=== PATIENT | male | born 1940 | race Caucasian/White ===

== ENCOUNTER → 2025-04-17 | Outpatient (CLI) | payer MEDICARE, OTHER, SELFPAY ==
[2025-04-17 12:49] LABS: Hematocrit 37.8 % (40-54); Hemoglobin 12.8 g/dL (13.0-16.5); Immature Granulocytes Count 0.020 X10^3/uL (0.0-0.0); Mean Corp Hgb Conc 33.9 g/dL (32-36); Mean Corpuscular Volume 100.0 fL (80-94); Mean Platelet Vol. 9.8 fl (6.2-12.0); NRBC Flagged by Analyzer 0 % (0-5); Platelet Count 199 K/mm3 (150-450); RBC Distribution Width CV 12.3 % (11.6-14.6); RBC Distribution Width SD 45.7 fl (35.1-43.9); Red Blood Count 3.78 M/mm3 (4.6-6.2); White Blood Count 4.3 K/mm3 (4.4-11.0)
[2025-04-17 14:14] LABS: AST(SGOT) 31 U/L (<=37); Alanine Aminotransfer ALT/SGPT 15 U/L (<=46); Albumin, Serum 4.0 g/dL (3.4-4.8); Alkaline Phosphatase 35 U/L (40-129); Anion Gap 14 (5-15); BUN 15 mg/dL (4-19); BUN/Creat Ratio 16.3 RATIO (10-20); Calcium,Total 9.3 mg/dL (7.6-11.0); Carbon Dioxide 18.6 mmol/L (21.0-32.0); Chloride 104 mmol/L (98-108); Globulin 2.8 g/dL (2.2-4.2); Glucose 82 mg/dL (70-99); Hepatitis B Surface Antigen Nonreactive (Nonreactive); Hepatitis C Antibody Nonreactive (Nonreactive); Potassium 5.0 mmol/L (3.3-5.1)
[2025-04-17 14:20] LABS: CRP 5.51 mg/L (0.0-3.0); Uric Acid 7.7 mg/dL (3.5-7.2)
[2025-04-18 10:08] LABS: ANTINUCLEAR ANTIBODIES DIRECT Negative (Negative)
[2025-04-19 17:07] LABS: QNTFERON TB Mitogen Value > 10.00 IU/mL (.); QNTFERON TB Nil Value 0.20 IU/mL (.); QNTFERON TB1+ Ag Value 0.28 IU/mL (.); QNTFERON TB2+ Ag Value 0.25 IU/mL (.); QNTIFERON TB Positive Criteria Negative (Negative)
== END | disposition home or self-care (01) ==
LOC: MTLAB 10:21
PROVIDERS: PCP Family Medicine; Referring Provider Internal Medicine Rheumatology; Visit Provider Internal Medicine Rheumatology
DX: L40.59 Other psoriatic arthropathy (principal); M72.0 Palmar fascial fibromatosis [Dupuytren]; L40.8 Other psoriasis; M47.897 Other spondylosis, lumbosacral region; M1A.9XX1 Chronic gout, unspecified, with tophus (tophi)
CPT/HCPCS: 36415; 80053; 84550; 85025; 85652; 86038; 86140; 86200; 86431; 86480; 86706; 86803; 87340

== ENCOUNTER → 2025-05-03 | Outpatient (CLI) | payer MEDICARE, OTHER, SELFPAY ==
--- NOTE | 2025-05-03 10:23 | RAD_ITS ---
EXAM: XR Pelvis, 1 or 2 Views CLINICAL INDICATION: PSORIATIC ARTHROPATHY TECHNIQUE: Frontal view of the pelvis. COMPARISON: No relevant prior studies available. 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 No acute fracture. No dislocation. SOFT TISSUES: Unremarkable. RAD/Pelvis 1 or 2 Views IMPRESSION: Degenerative changes as above. Reading [facility]
--- NOTE | 2025-05-03 10:23 | RAD_ITS ---
EXAM: XR Pelvis, 1 or 2 Views CLINICAL INDICATION: PSORIATIC ARTHROPATHY TECHNIQUE: Frontal view of the pelvis. COMPARISON: No relevant prior studies available. 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 No acute fracture. No dislocation. SOFT TISSUES: Unremarkable. RAD/Pelvis 1 or 2 Views IMPRESSION: Degenerative changes as above. Reading [facility]
--- OUTSIDE RECORDS SUMMARY | 2025-05-03 19:03 | XMS RPT_ITS | CCD ---
Author Organization [facility] Inform ion Partnership [facility] Care Team Providers Care Beauty Consultant Name Role Phone Unavailable Primary Care Provider Unavailabl e ANGELO DO, MARIE Attending Unavailabl e ANGELO DO, CHRISTOPHER Primary Care Unavailabl e JARED TALLEY, VICKY Attending Unavailable ANGELO DO, [place] Primary Care Unavailabl e TONIOTarsha SOLIMAN, CHELO Attending Unavaila ble ANGELO DO, [facility] Primary Care Unavailabl e BRIONNA MORRISSEY PA-C Attending Unavail able ANGELO DO, [place] Primary Care Unavailabl e JARED TALLEY, VICKY Attending Unavailable ANGELO DO, [place] Primary Care Unavailabl e TONIO SOLIMAN, CHELO Attending Unavaila ble ANGELO DO, CHRISTOPHER Primary Care Unavailabl e ANGELO DO, CHRISTOPHER Attending Unavailabl e ANGELO DO, CHRISTOPHER Primary Care Unavailabl e ANGELO DO, CHRISTOPHER Attending Unavailabl e ANGELO DO, CHRISTOPHER Primary Care Unavailabl e ANGELO DO, CHRISTOPHER Attending Unavailabl e ANGELO DO, CHRISTOPHER Primary Care Unavailabl e ANGELO DO, CHRISTOPHER Primary Care Unavailabl e CHADWICK MARMOLEJO MD Attending Unavailable ANGELO DO, CHRISTOPHER Primary Care Unavailabl e REILLY LEHMAN Attending Unavailable ANGELO DO, CHRISTOPHER Primary Care Unavailabl e JONNY MATHUR DO Attending Unavailable ANGELO DO, CHRISTOPHER Attending Unavailabl e ANGELO DO, CHRISTOPHER Primary Care Unavailabl e ANGELO DO, CHRISTOPHER Attending Unavailabl e [facility], [facility] Care Unavailabl e MAGALY SOLIMAN, VIC E Primary Care Yayo SALAZAR MD, DR ANDERSON Attending Unavailable Angelo HEATH, Dr. Ayala Primary Care Provider Negro MAJANO, Dr. Landrum Attending Provider Dr. Lucita Tom MD Referring Provider Lucita Tom Attending Unavailable Lucita Tom Referring Unavailable Jamie Stephens Primary Care Unavailable Problems Active Problems Problem Classification Problem Date Documented Date Episodic/Chronic Genitourinary symptoms and ill-defined conditions (2 sources) Unspecified symptoms and signs involving the genitourinary system; Translations: [Unspecified symptoms and signs involving the genitourinary system] Onset: 09-21-2024 Episodic Other inflammatory condition of skin (1 source) Other psoriatic arthropathy; Translations: [Other psoriatic arthropathy] Onset: 04-19-2025 Chronic Past or Other Problems Problem Classification Problem Date Documented Da te Episodic/Chronic Other upper respiratory infections (2 sources) Acute pharyngitis, unspecified; Translations: [Acute pharyngitis, unspecified] Onset: 06-11-2023 Episodic Results Test Name Value Interpretation Reference Range Facility CCP IgG Antibodieson 025 CCP IgG Ab. 6 units Normal 0-19 [facility] Comment on above: Result Comment: Nega tive <20 Weak positive 20 - 39 Moderate positive 40 - 59 Strong positive >59 Performed at: [facility] [id number] Container Packer Operator: Heath Bell PhD, Phone: [phone] Performed By: #### L 501.1400, L101.9900, L3890.6301, L501.6710, L4600.0100, L3890.6102, L505.7010, L3400.8000, L3100.5475, L3890.6202, L500.4050, L100.0100 #### [facility] [address] [place], [address] Quantiferon TB-Gold+on 04-19 QFT MITOGEN URSZULA > 10.00 Normal . [facility] Comment on above: Performed By: #### L 501.1400, L101.9900, L3890.6301, L501.6710, L4600.0100, L3890.6102, L505.7010, L3400.8000, L3100.5475, L3890.6202, L500.4050, L100.0100 #### [facility] [address] [place], [address] QFT NIL VALUE 0.20 IU/mL Normal . [facility] Comment on above: Performed By: #### L 501.1400, L101.9900, L3890.6301, L501.6710, L4600.0100, L3890.6102, L505.7010, L3400.8000, L3100.5475, L3890.6202, L500.4050, L100.0100 #### [facility] [address] [place], [address] QFT TB GOLD+ Comment Normal . [facility] Comment on above: Result Comment: Juarez tiFERON-TB Gold Plus is a qualitative indirect test for M tuberculosis infection (including disease) and is intended for use in conjunction with risk assessment, radiography, and other medical and diagnostic evaluations. The QuantiFERON-TB Gold Plus result is determined by subtracting the Nil value from either TB antigen (Ag) value. The Mitogen tube serves as a control for the test. Performed By: #### L 501.1400, L101.9900, L3890.6301, L501.6710, L4600.0100, L3890.6102, L505.7010, L3400.8000, L3100.5475, L3890.6202, L500.4050, L100.0100 #### [facility] [address] [place], [address] QFT TB POS CRIT Negative Normal Negative [facility] Comment on above: Result Comment: No r esponse to M tuberculosis antigens detected. Infection with M tuberculosis is unlikely, but high risk individuals should be considered for additional testing (ATS/IDSA/CDC Clinical Practice Guidelines, 2017). The reference range is an Antigen minus Nil result of <0.35 IU/mL. The specimen received for QuantiFERON testing was incubated by the ordering institution. Specific procedures outlined in our Directory of Services and in the package insert for the QuantiFERON Gold (In Tube) test must be followed to enable for proper stimulation of cells for the production of interferon gamma. Chemiluminescence immunoassay methodology Performed at: [facility] [employer] [id number] Container Packer Operator: Heath Bell PhD, Phone: [phone] Performed By: #### L 501.1400, L101.9900, L3890.6301, L501.6710, L4600.0100, L3890.6102, L505.7010, L3400.8000, L3100.5475, L3890.6202, L500.4050, L100.0100 #### [facility] [address] [place], [address] QFT TB1+ AG URSZULA 0.28 IU/mL Normal . [facility] Comment on above: Performed By: #### L 501.1400, L101.9900, L3890.6301, L501.6710, L4600.0100, L3890.6102, L505.7010, L3400.8000, L3100.5475, L3890.6202, L500.4050, L100.0100 #### [facility] [address] [place], [address] QFT TB2+ AG URSZULA 0.25 IU/mL Normal . [facility] Comment on above: Performed By: #### L 501.1400, L101.9900, L3890.6301, L501.6710, L4600.0100, L3890.6102, L505.7010, L3400.8000, L3100.5475, L3890.6202, L500.4050, L100.0100 #### [facility] [address] [place], [address] ANTINUCLEAR ANTIBODIES DIREC Ton 04-18-2025 ZAY,DIRECT Negative Normal Negative [facility] Comment on above: Result Comment: Perf ormed at: [email or web address] [id number] Container P[employer] Operator: Heath Bell PhD, Phone: [phone] Performed By: #### L 501.1400, L101.9900, L3890.6301, L501.6710, L4600.0100, L3890.6102, L505.7010, L3400.8000, L3100.5475, L3890.6202, L500.4050, L100.0100 #### [facility] [address] [place], [place], [id number] Absolute lymphocyte countOrd ered By: [facility] Negro on 04-17-2025 Lymphocytes Auto (Unsp spec) [#/Vol] 1.03 10*3/uL 0.83-4.51 [facility] Absolute neutrophil countOrd ered By: [facility] 04-17-2025 Neutrophils (Bld) [#/Vol] 2.2 10*3/uL 2.0-7.7 [facility] Anion gap in Serum or Plasma Ordered By: Lucitaraul Tom on 04-17-2025 Anion gap [Moles/Vol] 14 mmol/L 5-15 [facility] Automated lymphocyte count a s percentage of total leukocytesOrdered By: [facility] Negro on 04-17-2025 Lymphocytes/100 WBC Auto (Unsp spec) 24.2 % 19-41 [facility] BUN/creatinine ratioOrdered By: [facility] on 04-17-2025 Urea nitrogen/Creatinine [Mass ratio] 16.3 mg/mg 10-20 [facility] Basophil percentageOrdered B y: Lucita Tom on 04-17-2025 Basophils/100 WBC (Bld) 0.7 % 0-1 [facility] Bilirubin, totalOrdered By: [facility] on 04-17-2025 Bilirubin [Mass/Vol] 0.53 mg/dL 0.00-1.30 [facility] CBC W/Diff, Automatedon Absolute Lymph 1.03 X10 3/uL Normal 0.83-4.51 [facility] Comment on above: Performed By: #### L 501.1400, L101.9900, L3890.6301, L501.6710, L4600.0100, L3890.6102, L505.7010, L3400.8000, L3100.5475, L3890.6202, L500.4050, L100.0100 #### [facility] [address] [place], [address] Absolute Neut 2.2 X10 3/uL Normal 2.0-7.7 [facility] Comment on above: Performed By: #### L 501.1400, L101.9900, L3890.6301, L501.6710, L4600.0100, L3890.6102, L505.7010, L3400.8000, L3100.5475, L3890.6202, L500.4050, L100.0100 #### [facility] [address] [place], [place], [phone] ([address]) Basophils/100 WBC (Bld) 0.7 % Normal 0-1 [facility] Comment on above: Performed By: #### L 501.1400, L101.9900, L3890.6301, L501.6710, L4600.0100, L3890.6102, L505.7010, L3400.8000, L3100.5475, L3890.6202, L500.4050, L100.0100 #### [facility] [address] [place], [place], [phone] ([address] Eosinophils/100 WBC (Bld) 8.7 % High 0-5 [facility] Comment on above: Performed By: #### L 501.1400, L101.9900, L3890.6301, L501.6710, L4600.0100, L3890.6102, L505.7010, L3400.8000, L3100.5475, L3890.6202, L500.4050, L100.0100 #### [facility] [address] [place], [place], [phone] (709) Erythrocyte distribution width (RBC) [Ratio] 12.3 % Normal 11.6-14.6 [facility] Comment on above: Performed By: #### L 501.1400, L101.9900, L3890.6301, L501.6710, L4600.0100, L3890.6102, L505.7010, L3400.8000, L3100.5475, L3890.6202, L500.4050, L100.0100 #### [facility] [address] [place], [address] Hematocrit (Bld) [Volume fraction] 37.8 % Low 40-54 [facility] Comment on above: Performed By: #### L 501.1400, L101.9900, L3890.6301, L501.6710, L4600.0100, L3890.6102, L505.7010, L3400.8000, L3100.5475, L3890.6202, L500.4050, L100.0100 #### [facility] [address] [place], [place], [phone] (238) Hemoglobin (Bld) [Mass/Vol] 12.8 g/dL Low 13.0-16.5 [facility] Comment on above: Performed By: #### L 501.1400, L101.9900, L3890.6301, L501.6710, L4600.0100, L3890.6102, L505.7010, L3400.8000, L3100.5475, L3890.6202, L500.4050, L100.0100 #### [facility] [address] [place], [address] IG% 0.500 Normal 0.0-0.9 [facility] Comment on above: Result Comment: IG% - Immature Granulocytes (promyelocytes, myelocytes and metamyelocytes) > 1% indicates that a LEFT SHIFT is Present. Performed By: #### L 501.1400, L101.9900, L3890.6301, L501.6710, L4600.0100, L3890.6102, L505.7010, L3400.8000, L3100.5475, L3890.6202, L500.4050, L100.0100 #### [facility] [address] [place], [address] Lymphocytes/100 WBC (Bld) 24.2 % Normal 19-41 [facility] Comment on above: Performed By: #### L 501.1400, L101.9900, L3890.6301, L501.6710, L4600.0100, L3890.6102, L505.7010, L3400.8000, L3100.5475, L3890.6202, L500.4050, L100.0100 #### [facility] [address] [place], [address] MCH (RBC) [Entitic mass] 33.9 pg High 27.0-32.0 [facility] Comment on above: Performed By: #### L 501.1400, L101.9900, L3890.6301, L501.6710, L4600.0100, L3890.6102, L505.7010, L3400.8000, L3100.5475, L3890.6202, L500.4050, L100.0100 #### [facility] [address] [place], [address] MCHC (RBC) [Mass/Vol] 33.9 g/dL Normal 32-36 [facility] Comment on above: Performed By: #### L 501.1400, L101.9900, L3890.6301, L501.6710, L4600.0100, L3890.6102, L505.7010, L3400.8000, L3100.5475, L3890.6202, L500.4050, L100.0100 #### [facility] [address] [place], [address] MCV (RBC) [Entitic vol] 100.0 fL High 80-94 [facility] Comment on above: Performed By: #### L 501.1400, L101.9900, L3890.6301, L501.6710, L4600.0100, L3890.6102, L505.7010, L3400.8000, L3100.5475, L3890.6202, L500.4050, L100.0100 #### [facility] [address] [place], [address] Monocytes/100 WBC (Bld) 15.1 % High 0-10 [facility] Comment on above: Performed By: #### L 501.1400, L101.9900, L3890.6301, L501.6710, L4600.0100, L3890.6102, L505.7010, L3400.8000, L3100.5475, L3890.6202, L500.4050, L100.0100 #### [facility] [address] [place], [address] Neutrophils/100 WBC (Bld) 50.8 % Normal 47-70 [facility] Comment on above: Performed By: #### L 501.1400, L101.9900, L3890.6301, L501.6710, L4600.0100, L3890.6102, L505.7010, L3400.8000, L3100.5475, L3890.6202, L500.4050, L100.0100 #### [facility] [address] [place], [place], [phone] ([address] Nucleated RBC (Bld) [#/Vol] 0 10*3/uL Normal 0-5 [facility] Comment on above: Performed By: #### L 501.1400, L101.9900, L3890.6301, L501.6710, L4600.0100, L3890.6102, L505.7010, L3400.8000, L3100.5475, L3890.6202, L500.4050, L100.0100 #### [facility] [address] [place], [address] Platelet mean volume (Bld) [Entitic vol] 9.8 fL Normal 6.2-12.0 [facility] Comment on above: Performed By: #### L 501.1400, L101.9900, L3890.6301, L501.6710, L4600.0100, L3890.6102, L505.7010, L3400.8000, L3100.5475, L3890.6202, L500.4050, L100.0100 #### [facility] [address] [place], [address] Platelets (Bld) [#/Vol] 199 10*3/uL Normal 150-450 [facility] Comment on above: Performed By: #### L 501.1400, L101.9900, L3890.6301, L501.6710, L4600.0100, L3890.6102, L505.7010, L3400.8000, L3100.5475, L3890.6202, L500.4050, L100.0100 #### [facility] [address] [place], [address] RBC (Bld) [#/Vol] 3.78 10*6/uL Low 4.6-6.2 [facility] Comment on above: Performed By: #### L 501.1400, L101.9900, L3890.6301, L501.6710, L4600.0100, L3890.6102, L505.7010, L3400.8000, L3100.5475, L3890.6202, L500.4050, L100.0100 #### [facility] [address] [place], [address] RDW SD 45.7 fl High 35.1-43.9 [facility] Comment on above: Performed By: #### L 501.1400, L101.9900, L3890.6301, L501.6710, L4600.0100, L3890.6102, L505.7010, L3400.8000, L3100.5475, L3890.6202, L500.4050, L100.0100 #### [facility] [address] [place], [address] WBC (Bld) [#/Vol] 4.3 10*3/uL Low 4.4-11.0 [facility] Comment on above: Performed By: #### L 501.1400, L101.9900, L3890.6301, L501.6710, L4600.0100, L3890.6102, L505.7010, L3400.8000, L3100.5475, L3890.6202, L500.4050, L100.0100 #### [facility] [address] [facility] [address] [facility] [place], [place], [phone] (197) CRPon 04-17-2025 C-REACTIVE PROT 5.51 mg/L High 0.0-3.0 [facility] Comment on above: Performed By: #### L 501.1400, L101.9900, L3890.6301, L501.6710, L4600.0100, L3890.6102, L505.7010, L3400.8000, L3100.5475, L3890.6202, L500.4050, L100.0100 #### [facility] [address] [facility] [place], [place], [phone] Carbon dioxide, total [Moles /volume] in Central venous bloodOrdered By: Lucita Tom on 04-17-2025 CO2 [Moles/Vol] 18.6 mmol/L Low 21.0-32.0 [facility] Chloride assayOrdered By: John Tom on 04-17-2025 Chloride [Moles/Vol] 104 mmol/L 98-108 [facility] Comprehensive Metabolic Prof ilon 04-17-2025 Albumin [Mass/Vol] 4.0 g/dL Normal 3.4-4.8 [facility] Comment on above: Performed By: #### L 501.1400, L101.9900, L3890.6301, L501.6710, L4600.0100, L3890.6102, L505.7010, L3400.8000, L3100.5475, L3890.6202, L500.4050, L100.0100 #### [facility] [address] [place], [place], [phone] Albumin/Globulin [Mass ratio] 1.4 {ratio} Normal 0.9-2.4 [facility] Comment on above: Performed By: #### L 501.1400, L101.9900, L3890.6301, L501.6710, L4600.0100, L3890.6102, L505.7010, L3400.8000, L3100.5475, L3890.6202, L500.4050, L100.0100 #### [facility] [address] [place], [place], [phone] ALK PHOS 35 U/L Low 40-129 [facility] Comment on above: Performed By: #### L 501.1400, L101.9900, L3890.6301, L501.6710, L4600.0100, L3890.6102, L505.7010, L3400.8000, L3100.5475, L3890.6202, L500.4050, L100.0100 #### [facility] [address] [place], [place], [phone] ALT [Catalytic activity/Vol] 15 U/L Normal <=46 [facility] Comment on above: Performed By: #### L 501.1400, L101.9900, L3890.6301, L501.6710, L4600.0100, L3890.6102, L505.7010, L3400.8000, L3100.5475, L3890.6202, L500.4050, L100.0100 #### [facility] [address] [place], [address] (197 AST [Catalytic activity/Vol] 31 U/L Normal <=37 [facility] Comment on above: Performed By: #### L 501.1400, L101.9900, L3890.6301, L501.6710, L4600.0100, L3890.6102, L505.7010, L3400.8000, L3100.5475, L3890.6202, L500.4050, L100.0100 #### [facility] [address] [place], [address] Bilirubin [Mass/Vol] 0.53 mg/dL Normal 0.00-1.30 [facility] Comment on above: Performed By: #### L 501.1400, L101.9900, L3890.6301, L501.6710, L4600.0100, L3890.6102, L505.7010, L3400.8000, L3100.5475, L3890.6202, L500.4050, L100.0100 #### [facility] [address] [place], [address] BUN/CRE 16.3 RATIO Normal 10-20 [facility] Comment on above: Performed By: #### L 501.1400, L101.9900, L3890.6301, L501.6710, L4600.0100, L3890.6102, L505.7010, L3400.8000, L3100.5475, L3890.6202, L500.4050, L100.0100 #### [facility] [address] [place], [address] Calcium [Mass/Vol] 9.3 mg/dL Normal 7.6-11.0 [facility] Comment on above: Performed By: #### L 501.1400, L101.9900, L3890.6301, L501.6710, L4600.0100, L3890.6102, L505.7010, L3400.8000, L3100.5475, L3890.6202, L500.4050, L100.0100 #### [facility] [address] [place], [address] Chloride [Moles/Vol] 104 mmol/L Normal 98-108 [facility] Comment on above: Performed By: #### L 501.1400, L101.9900, L3890.6301, L501.6710, L4600.0100, L3890.6102, L505.7010, L3400.8000, L3100.5475, L3890.6202, L500.4050, L100.0100 #### [facility] [address] [place], [address] CO2 [Moles/Vol] 18.6 mmol/L Low 21.0-32.0 [facility] Comment on above: Performed By: #### L 501.1400, L101.9900, L3890.6301, L501.6710, L4600.0100, L3890.6102, L505.7010, L3400.8000, L3100.5475, L3890.6202, L500.4050, L100.0100 #### [facility] [address] [place], [address] Creatinine [Mass/Vol] 0.91 mg/dL Normal 0.70-1.20 [facility] Comment on above: Performed By: #### L 501.1400, L101.9900, L3890.6301, L501.6710, L4600.0100, L3890.6102, L505.7010, L3400.8000, L3100.5475, L3890.6202, L500.4050, L100.0100 #### [facility] [address] [place], [address] GAP 14 Normal 5-15 [facility] Comment on above: Performed By: #### L 501.1400, L101.9900, L3890.6301, L501.6710, L4600.0100, L3890.6102, L505.7010, L3400.8000, L3100.5475, L3890.6202, L500.4050, L100.0100 #### [facility] [address] [place], [address] GFR/1.73 sq M.predicted among non-blacks MDRD (S/P/Bld) [Vol rate/Area] 85 mL/min/{1.73_m2} Normal >60 [facility] Comment on above: Result Comment: mL/m in/1.73m2 CKD-EPI Creatinine Equation (2020) Performed By: #### L 501.1400, L101.9900, L3890.6301, L501.6710, L4600.0100, L3890.6102, L505.7010, L3400.8000, L3100.5475, L3890.6202, L500.4050, L100.0100 #### [facility] [address] [place], [address] Globulin (S) [Mass/Vol] 2.8 g/dL Normal 2.2-4.2 [facility] Comment on above: Performed By: #### L 501.1400, L101.9900, L3890.6301, L501.6710, L4600.0100, L3890.6102, L505.7010, L3400.8000, L3100.5475, L3890.6202, L500.4050, L100.0100 #### [facility] [address] [place], [address] Glucose [Mass/Vol] 82 mg/dL Normal 70-99 [facility] Comment on above: Performed By: #### L 501.1400, L101.9900, L3890.6301, L501.6710, L4600.0100, L3890.6102, L505.7010, L3400.8000, L3100.5475, L3890.6202, L500.4050, L100.0100 #### [facility] [address] [place], [address] Potassium [Moles/Vol] 5.0 mmol/L Normal 3.3-5.1 [facility] Comment on above: Performed By: #### L 501.1400, L101.9900, L3890.6301, L501.6710, L4600.0100, L3890.6102, L505.7010, L3400.8000, L3100.5475, L3890.6202, L500.4050, L100.0100 #### [facility] [address] [place], [address] Sodium [Moles/Vol] 136 mmol/L Normal 133-145 [facility] Comment on above: Performed By: #### L 501.1400, L101.9900, L3890.6301, L501.6710, L4600.0100, L3890.6102, L505.7010, L3400.8000, L3100.5475, L3890.6202, L500.4050, L100.0100 #### [facility] [address] [place], [address] T PROT 6.8 g/dL Normal 5.9-8.4 [facility] Comment on above: Performed By: #### L 501.1400, L101.9900, L3890.6301, L501.6710, L4600.0100, L3890.6102, L505.7010, L3400.8000, L3100.5475, L3890.6202, L500.4050, L100.0100 #### [facility] [address] [place], [address] Urea nitrogen [Mass/Vol] 15 mg/dL Normal 4-19 [facility] Comment on above: Performed By: #### L 501.1400, L101.9900, L3890.6301, L501.6710, L4600.0100, L3890.6102, L505.7010, L3400.8000, L3100.5475, L3890.6202, L500.4050, L100.0100 #### [facility] [address] [place], [place], [id number] Eosinophil percentageOrdered By: Lucita Tom on 04-17-2025 Eosinophils/100 WBC (Bld) 8.7 % High 0-5 [facility] Erythrocyte Sed Rateon 04-17 SED RATE 10 mm/hr Normal 0-20 [facility] Comment on above: Performed By: #### L 501.1400, L101.9900, L3890.6301, L501.6710, L4600.0100, L3890.6102, L505.7010, L3400.8000, L3100.5475, L3890.6202, L500.4050, L100.0100 #### [facility] [address] [place], [place], [id number] Erythrocyte distribution wid th ratioOrdered By: Lucita Tom on 04-17-2025 Erythrocyte distribution width (RBC) [Ratio] 12.3 % 11.6-14.6 [facility] Erythrocyte distribution wid th standard deviationOrdered By: Lucitaraul Tom on 04-17-2025 Erythrocyte distribution width (RBC) [Ratio] 45.7 fl High 35.1-43.9 [facility] Erythrocyte sedimentation ra teOrdered By: Lucita Tom on 04-17-2025 ESR (Bld) [Velocity] 10 mm/h 0-20 [facility] Glomerular filtration rate ( GFR) estimation/1.73 sq m using serum, plasma, or whole bOrdered By: Lucita Tom on 04-17-2025 GFR/1.73 sq M.predicted among non-blacks MDRD (S/P/Bld) [Vol rate/Area] 85 mL/min/{1.73_m2} >60 [facility] Comment on above: mL/min/1.73m2 CKD-EP I Creatinine Equation (2021) Hematocrit Auto (Bld) [Volum e fraction]Ordered By: Lucita Tom on 04-17-2025 Hematocrit (Bld) [Volume fraction] 37.8 % Low 40-54 [facility] Hemoglobin measurementOrdere d By: Lucita Tom on 04-17-2025 Hemoglobin (Bld) [Mass/Vol] 12.8 g/dL Low 13.0-16.5 [facility] Hepatitis B Surface Antibody on 04-17-2025 HEP B Surf Ab Non-Reactive Normal [facility] Comment on above: Result Comment: <8.5 mIU/mL: Non-Reactive 8.5<= x <11.5 mIU/mL: Indeterminate >=11.5 mIU/mL: Reactive Non Reactive: Inconsistent with immunity less than <10 mIU/mL Reactive: Consistent with immunity greater than or equal to 10 mIU/mL Performed By: #### L 501.1400, L101.9900, L3890.6301, L501.6710, L4600.0100, L3890.6102, L505.7010, L3400.8000, L3100.5475, L3890.6202, L500.4050, L100.0100 #### [facility] [address] [place], [place], [id number] Hepatitis C Antibodyon 04-17 Hepatitis C Ab Non-Reactive Normal Nonreactive [facility] Comment on above: Result Comment: Reac tive: Presumptive evidence of antibodies to HCV. Follow CDC recommendations for supplemental testing. Non-Reactive: Antibodies to HCV were not detected; does not exclude the possibility of exposure to HCV Reactive Results are presumptive evidence of antibodies to HCV. Follow CDC recommendations for supplemental testing. Order confirmation testing: HCV Quant by PCR testing - HCVPCR #[id number] Non Reactive: < 0.8 Equivocal: >/= 0.8 to < 1.0 Reactive: >/= 1.0 The CDC requires that a reactive/equivocal HCV antibody result be sent out for confirmation. HCV Quant by PCR testing. Performed By: #### L 501.1400, L101.9900, L3890.6301, L501.6710, L4600.0100, L3890.6102, L505.7010, L3400.8000, L3100.5475, L3890.6202, L500.4050, L100.0100 #### [facility] [address] [place], [place], [id number] Immature granulocytes/100 WB C Auto (Bld)Ordered By: Lucita Tom on 04-17-2025 Immature granulocytes/100 WBC (Bld) 0.500 % 0.0-0.9 [facility] Comment on above: IG% - Immature Granu locytes (promyelocytes, myelocytes and metamyelocytes) > 1% indicates that a LEFT SHIFT is Present. L3890.6102on 04-17-2025 HEP B Surf Ag Non-Reactive Normal Nonreactive [facility] Comment on above: Result Comment: Reac tive: Presumptive evidence of HBV. Repeatedly reactive samples must be confirmed using a neutralization test ([employer] HBsAg Confirmatory Test) Non-Reactive: HBsAg not detected; does not exclude the possibility of exposure to HBV Performed By: #### L 501.1400, L101.9900, L3890.6301, L501.6710, L4600.0100, L3890.6102, L505.7010, L3400.8000, L3100.5475, L3890.6202, L500.4050, L100.0100 #### [facility] [address] [place], [address] Laboratory - Chemistry and C hemistry - challengeOrdered By: Lucita Tom on 04-17-2025 AST [Catalytic activity/Vol] 31 U/L <38 [facility] - Microbiology an d Antimicrobial susceptibilityOrdered By: Lucita Tom on 04-17-2025 HBV surface Ag Ql (S) Non-Reactive Nonreactive [facility] Comment on above: Reactive: Presumptiv e evidence of HBV. Repeatedly reactive samples must be confirmed using a neutralization test ([employer] HBsAg Confirmatory Test)Non-Reactive: HBsAg not detected; does not exclude the possibility of exposure to HBV MCV (mean corpuscular volume ) determinationOrdered By: Lucita Tom on 04-17-2025 MCV (RBC) [Entitic vol] 100.0 fL High 80-94 [facility] Mean corpuscular hemoglobin (MCH) determinationOrdered By: Lucita Tom on 04-17-2025 MCH (RBC) [Entitic mass] 33.9 pg High 27.0-32.0 [facility] Mean corpuscular hemoglobin concentration (MCHC) determinationOrdered By: Lucita Tom on 04-17-2025 MCHC (RBC) [Mass/Vol] 33.9 g/dL 32-36 [facility] Mean platelet volume determi nationOrdered By: Lucita Tom on 04-17-2025 Platelet mean volume (Bld) [Entitic vol] 9.8 fL 6.2-12.0 [facility] Monocyte percentageOrdered B y: Lucita Tom on 04-17-2025 Monocytes/100 WBC (Bld) 15.1 % High 0-10 [facility] Neutrophil percentageOrdered By: Lucita Tom on 04-17-2025 Neutrophils/100 WBC (Bld) 50.8 % 47-70 [facility] Nucleated red blood cell per centageOrdered By: Lucita Tom on 04-17-2025 Nucleated RBC/100 WBC (Bld) [Ratio] 0 % 0-5 [facility] Platelet countOrdered By: John Tom on 04-17-2025 Platelets (Bld) [#/Vol] 199 10*3/uL 150-450 [facility] Potassium measurement (mass/ volume)Ordered By: Lucita Tom on 04-17-2025 Potassium (Unsp spec) [Mass/Vol] 5.0 mmol/L 3.3-5.1 [facility] RBC Auto (Bld) [#/Vol]Ordere d By: Lucita Tom on 04-17-2025 RBC (Bld) [#/Vol] 3.78 10*6/uL Low 4.6-6.2 [facility] Rheumatoid Factoron 04-17-20 25 RHEUMATOID FAC < 10.0 Normal <15 [facility] Comment on above: Performed By: #### L 501.1400, L101.9900, L3890.6301, L501.6710, L4600.0100, L3890.6102, L505.7010, L3400.8000, L3100.5475, L3890.6202, L500.4050, L100.0100 #### [facility] [place], [address] Serum creatinine measurement (mass/volume)Ordered By: Lucita Tom on 04-17-2025 Creatinine [Mass/Vol] 0.91 mg/dL 0.70-1.20 [facility] Serum globulin measurementOr dered By: Lucita Tom on 04-17-2025 Globulin (S) [Mass/Vol] 2.8 g/dL 2.2-4.2 [facility] Serum glucose measurement (m ass/volume)Ordered By: Lucita Tom on 04-17-2025 Glucose [Mass/Vol] 82 mg/dL 70-99 [facility] Serum hepatitis B virus surf lilia antibody detectionOrdered By: Lucita Tom on 04-17-2025 HBV surface Ab Ql (S) Non-Reactive [facility] Comment on above: <8.5 mIU/mL: Non-[place] ctive8.5<= x <11.5 mIU/mL: Indeterminate>=11.5 mIU/mL: Reactive Non Reactive: Inconsistent with immunity less than <10 mIU/mL Reactive: Consistent with immunity greater than or equal to 10 mIU/mL Serum or plasma C reactive p rotein measurement (mass/volume)Ordered By: Lucita Tom on 04-17-2025 CRP [Mass/Vol] 5.51 mg/L High 0.0-3.0 [facility] Serum or plasma alanine garcia otransferase (ALT) measurementOrdered By: Lucitaraul Tom on 04-17-2025 ALT [Catalytic activity/Vol] 15 U/L <47 [facility] Serum or plasma albumin katelyn urement (mass/volume)Ordered By: Lucita Tom on 04-17-2025 Albumin [Mass/Vol] 4.0 g/dL 3.4-4.8 [facility] Serum or plasma albumin/glob ulin mass ratioOrdered By: Lucita Tom 04-17-2025 Albumin/Globulin [Mass ratio] 1.4 {ratio} 0.9-2.4 [facility] Serum or plasma alkaline mary sphatase measurementOrdered By: Lucita Tom on 04-17-2025 ALP [Catalytic activity/Vol] 35 U/L Low 40-129 [facility] Serum or plasma calcium katelyn urement (mass/volume)Ordered By: Lucita Tom on 04-17-2025 Calcium [Mass/Vol] 9.3 mg/dL 7.6-11.0 [facility] Serum or plasma urea nitroge n measurement (mass/volume)Ordered By: Lucita Tom on 04-17-2025 Urea nitrogen [Mass/Vol] 15 mg/dL 4-19 [facility] Serum or plasma uric acid me asurement (mass/volume)Ordered By: Lucita Tom on 04-17-2025 Urate [Mass/Vol] 7.7 mg/dL High 3.5-7.2 [facility] Comment on above: The drugs N-Acetylcy steine and Metamizole may falsely depress this assay. Serum rheumatoid factor dete ctionOrdered By: Lucita Tom on 04-17-2025 Rheumatoid factor Ql (S) < 10.0 IU/mL <15 [facility] Sodium levelOrdered By: Tremaine Tom on 04-17-2025 Sodium [Moles/Vol] 136 mmol/L 133-145 [facility] Total proteinOrdered By: Beba Tom on 04-17-2025 Protein [Mass/Vol] 6.8 g/dL 5.9-8.4 [facility] Uric Acidon 04-17-2025 URIC 7.7 mg/dL High 3.5-7.2 [facility] Comment on above: Result Comment: The drugs N-Acetylcysteine and Metamizole may falsely depress this assay. Performed By: #### L 501.1400, L101.9900, L3890.6301, L501.6710, L4600.0100, L3890.6102, L505.7010, L3400.8000, L3100.5475, L3890.6202, L500.4050, L100.0100 #### [facility] [address] [place], [address] White blood cell (WBC) count Ordered By: Lucita Tom on 04-17-2025 WBC (Bld) [#/Vol] 4.3 10*3/uL Low 4.4-11.0 [facility] .Auto Diffon 12-25-2024 Basophil, Absolute 0.0 10 3/mcL Normal 0.0-0.3 [facility] Comment on above: Performed By: #### M DW, CMP, MG, ANEU, GFR, MORPH, ADIFF, CBC #### [facility] [place] [address] [place], [place] [address] Basophils/100 WBC (Bld) 1.0 % Normal 0.0-2.5 [facility] Comment on above: Performed By: #### M DW, CMP, MG, ANEU, GFR, MORPH, ADIFF, CBC #### [facility] [place] [address] [place], [place] [address] Eosinophil, Absolute 0.3 10 3/mcL Normal 0.0-0.7 [facility] Comment on above: Performed By: #### M DW, CMP, MG, ANEU, GFR, MORPH, ADIFF, CBC #### [facility] [place] [address] [place], [place] [address] Eosinophils/100 WBC (Bld) 7.2 % High 0.0-6.0 [facility] Comment on above: Performed By: #### M DW, CMP, MG, ANEU, GFR, MORPH, ADIFF, CBC #### [facility] [place] [address] [place], [place] [address] Lymphocyte, Absolute 1.4 10 3/mcL Normal 0.9-4.3 [facility] Comment on above: Performed By: #### M DW, CMP, MG, ANEU, GFR, MORPH, ADIFF, CBC #### [facility] [place] [address] [place], [place] [address] Lymphocytes/100 WBC (Bld) 32.6 % Normal 20.0-40.0 [facility] Comment on above: Performed By: #### M DW, CMP, MG, ANEU, GFR, MORPH, ADIFF, CBC #### [facility] [place] [address] [place], [place] [address] Monocyte, Absolute 0.5 10 3/mcL Normal 0.1-1.4 [facility] Comment on above: Performed By: #### M DW, CMP, MG, ANEU, GFR, MORPH, ADIFF, CBC #### [facility] [place] [address] [place], [place] [address] Monocytes/100 WBC (Bld) 12.1 % Normal 2.0-13.0 [facility] Comment on above: Performed By: #### M DW, CMP, MG, ANEU, GFR, MORPH, ADIFF, CBC #### [facility] [place] [address] [place], [place] [address] Neutrophils/100 WBC (Bld) 47.1 % Low 50.0-75.0 [facility] Comment on above: Performed By: #### M DW, CMP, MG, ANEU, GFR, MORPH, ADIFF, CBC #### [facility] [address] [place], [place] [address] .GFRon 12-25-2024 Estimated Glomerular Filtration Rate 64 ml/min/1.73sqm Normal [facility] Comment on above: Result Comment: Stages of Chronic Kidney Disease (CKD) Stage Description eGFR(ml/min/1.73 sq.m.) CKD 1 Normal kidney function or >=90 normal kindney function with possible kidney damage (ex. Proteinuria) CKD 2 Kidney damage with mild loss 60-89 of kidney function CKD 3a Mild to moderate loss of kidney 45-59 function CKD 3b Moderate to severe loss of 30-44 of kindey function CKD 4 Severe loss of kidney function 15-29 CKD 5 Kidney failure <15 Note: (go live 2024) the eGFR calculation was updated to the 2020 CKD-EPI creatinine equation without a race factor to calculate the eGFR results. Performed By: #### M DW, CMP, MG, ANEU, GFR, MORPH, ADIFF, CBC #### [facility] [place] [address] [place], [place] [address] .NEUABSon 12-25-2024 Neutrophil, Absolute 2.0 10 3/mcL Low 2.3-8.1 [facility] Comment on above: Performed By: #### M DW, CMP, MG, ANEU, GFR, MORPH, ADIFF, CBC #### [facility] [place] [address] [place], [place] [address] CBCon 12-25-2024 Erythrocyte distribution width (RBC) [Ratio] 13.0 % Normal 11.5-15.5 [facility] Comment on above: Performed By: #### C MP, CBC, ANEU, ADIFF, URIC, GFR #### [facility] [place] [address] [place] [id number] Hematocrit (Bld) [Volume fraction] 38.3 % Low 40.0-52.0 [facility] Comment on above: Performed By: #### C MP, CBC, ANEU, ADIFF, URIC, GFR #### [facility] [address] [place] [id number] Hgb 12.7 G/dL Low 13.0-17.5 [facility] Comment on above: Performed By: #### C MP, CBC, ANEU, ADIFF, URIC, GFR #### [facility] [address] [place], [place] [address] MCH (RBC) [Entitic mass] 33.7 pg High 27.0-33.0 [facility] Comment on above: Performed By: #### C MP, CBC, ANEU, ADIFF, URIC, GFR #### [facility] [address] [place] [id number] MCHC 33.1 G/dL Normal 32.0-36.0 [facility] Comment on above: Performed By: #### C MP, CBC, ANEU, ADIFF, URIC, GFR #### [facility] [address] [place] [phone] MCV (RBC) [Entitic vol] 101.8 fL High 81.0-100.0 [facility] Comment on above: Performed By: #### C MP, CBC, ANEU, ADIFF, URIC, GFR #### [facility] [address] [place] [id number] Platelet 207 10 3/mcL Normal 150-450 [facility] Comment on above: Performed By: #### C MP, CBC, ANEU, ADIFF, URIC, GFR #### [facility] [place] [address] [place], [place] [address] Platelet mean volume (Bld) [Entitic vol] 7.8 fL Normal 6.4-10.5 [facility] Comment on above: Performed By: #### C MP, CBC, ANEU, ADIFF, URIC, GFR #### [facility] [place] [address] [place] [id number] RBC 3.76 10 6/mcL Low 4.50-6.00 [facility] Comment on above: Performed By: #### C MP, CBC, ANEU, ADIFF, URIC, GFR #### [facility] [place] [address] [place] [id number] WBC 4.2 10 3/mcL Low 4.5-10.8 [facility] Comment on above: Performed By: #### C MP, CBC, ANEU, ADIFF, URIC, GFR #### [facility] [place] [address] [place] [id number] CMPon 12-25-2024 Albumin Level 3.5 G/dL Normal 3.4-4.8 [facility] Comment on above: Performed By: #### M DW, CMP, MG, ANEU, GFR, MORPH, ADIFF, CBC #### [facility] [place] [address] [place] [id number] Albumin/Globulin [Mass ratio] 1.0 {ratio} Low 1.1-2.5 [facility] Comment on above: Performed By: #### M DW, CMP, MG, ANEU, GFR, MORPH, ADIFF, CBC #### [facility] [place] [address] [place] [phone] ALP [Catalytic activity/Vol] 34 U/L Low 40-135 [facility] Comment on above: Performed By: #### M DW, CMP, MG, ANEU, GFR, MORPH, ADIFF, CBC #### [facility] [place] [address] [place], [place] [address] ALT [Catalytic activity/Vol] 15 U/L Low 16-63 [facility] Comment on above: Performed By: #### M DW, CMP, MG, ANEU, GFR, MORPH, ADIFF, CBC #### [facility] [address] [place], [place] [address] AST [Catalytic activity/Vol] 21 U/L Normal 10-40 [facility] Comment on above: Performed By: #### M DW, CMP, MG, ANEU, GFR, MORPH, ADIFF, CBC #### [facility] [address] [place], [place] [address] Bili Total 0.4 mg/dL Normal 0.2-1.0 [facility] Comment on above: Result Comment: Use of this assay is not recommended for patients undergoing treatment with eltrombopag due to the potential for falsely elevated results. Performed By: #### M DW, CMP, MG, ANEU, GFR, MORPH, ADIFF, CBC #### [facility] [address] [place], [place] [address] BUN/Creatinine Ratio 18 ratio Normal 7-27 [facility] Comment on above: Performed By: #### M DW, CMP, MG, ANEU, GFR, MORPH, ADIFF, CBC #### [facility] [address] [place], [place] [address] Calcium [Mass/Vol] 9.2 mg/dL Normal 8.4-10.2 [facility] Comment on above: Performed By: #### M DW, CMP, MG, ANEU, GFR, MORPH, ADIFF, CBC #### [facility] [address] [place], [place] [address] Chloride [Moles/Vol] 107 mmol/L Normal 98-107 [facility] Comment on above: Performed By: #### M DW, CMP, MG, ANEU, GFR, MORPH, ADIFF, CBC #### [facility] [address] [place], [place] [address] CO2 [Moles/Vol] 24 mmol/L Normal 23-31 [facility] Comment on above: Performed By: #### M DW, CMP, MG, ANEU, GFR, MORPH, ADIFF, CBC #### [facility] [place] [address] [place], [place] [address] Creatinine [Mass/Vol] 1.14 mg/dL Normal 0.70-1.30 [facility] Comment on above: Result Comment: Test ing performed on Siemens Dimension EXL analyzer using a modified kinetic Fred technique. Performed By: #### M DW, CMP, MG, ANEU, GFR, MORPH, ADIFF, CBC #### [facility] [place] [address] [place], [place] [address] Electrolyte Balance 11.0 mEq/L Normal 4.0-15.0 [facility] Comment on above: Performed By: #### M DW, CMP, MG, ANEU, GFR, MORPH, ADIFF, CBC #### [facility] [place] [address] [place], [place] [address] Globulin 3.6 G/dL Normal 1.5-3.8 [facility] Comment on above: Performed By: #### M DW, CMP, MG, ANEU, GFR, MORPH, ADIFF, CBC #### [facility] [place] [address] [place], [place] [address] Glucose [Mass/Vol] 78 mg/dL Low 83-110 [facility] Comment on above: Performed By: #### M DW, CMP, MG, ANEU, GFR, MORPH, ADIFF, CBC #### [facility] [address] [place], [place] [address] Potassium [Moles/Vol] 4.7 mmol/L Normal 3.5-5.1 [facility] Comment on above: Performed By: #### M DW, CMP, MG, ANEU, GFR, MORPH, ADIFF, CBC #### [facility] [address] [place], [place] [address] Sodium [Moles/Vol] 142 mmol/L Normal 136-145 [facility] Comment on above: Performed By: #### M DW, CMP, MG, ANEU, GFR, MORPH, ADIFF, CBC #### [facility] [place] [address] [place], [place] [address] Total Protein 7.1 G/dL Normal 6.4-8.2 [facility] Comment on above: Performed By: #### M DW, CMP, MG, ANEU, GFR, MORPH, ADIFF, CBC #### [facility] [place] [address] [place], [place] [address] Urea nitrogen [Mass/Vol] 20 mg/dL High 7-18 [facility] Comment on above: Performed By: #### M DW, CMP, MG, ANEU, GFR, MORPH, ADIFF, CBC #### [facility] [place] [address] [place], [place] [address] URICon 12-25-2024 Uric Acid Lvl 8.4 mg/dL High 3.5-7.2 [facility] Comment on above: Performed By: #### M DW, CMP, MG, ANEU, GFR, MORPH, ADIFF, CBC #### [facility] [place] [address] [place], [place] [address] XR ANKLE AND FOOT 6 VIEWS LE FTon 08-27-2024 XR ANKLE AND FOOT 6 VIEWS LEFT ORIGINAL EXAMINATION: 6XRAY VIEWS OF THE ANKLE AND FOOT LEFT 08/27/2024 1:24 pm COMPARISON: None. HISTORY: ORDERING SYSTEM PROVIDED HISTORY: Reason for Exam: PAIN/SWELLING LT FOOT X2DAYS W NKI pain IMPRESSION: Ankle mortise is symmetric. Talar dome is preserved. Accessory navicular. Plantar calcaneal spur. There is an age indeterminate transverse proximal 2nd metatarsal shaft fracture. Soft tissue swelling most pronounced involving the midfoot/hindfoot. Severe hallux valgus. Lateral subluxation of the 2nd through 5th MTP joints. Interpreted by: Jackie Chaves Preliminary Report By: Jackie Chaves Electronically signed By Jackie Chaves Dictated Date: 08/27/2024 1:32:25 PM Prelim Date: 08/27/2024 1:34:54 PM Sign Date: 08/27/2024 1:34:54 PM Ordering Provider: CHADWICK MARMOLEJO Normal [facility] .Auto Diffon 08-22-2024 Basophil, Absolute 0.1 10 3/mcL Normal 0.0-0.3 [facility] Comment on above: Performed By: #### M DW, CMP, MG, ANEU, GFR, MORPH, ADIFF, CBC #### [facility] [place] [address] [place], [place] [address] Basophils/100 WBC (Bld) 0.8 % Normal 0.0-2.5 [facility] Comment on above: Performed By: #### M DW, CMP, MG, ANEU, GFR, MORPH, ADIFF, CBC #### [facility] [place] [address] [place], [place] [address] Eosinophil, Absolute 0.1 10 3/mcL Normal 0.0-0.7 [facility] Comment on above: Performed By: #### M DW, CMP, MG, ANEU, GFR, MORPH, ADIFF, CBC #### [facility] [place] [address] [place], [place] [address] Eosinophils/100 WBC (Bld) 1.9 % Normal 0.0-6.0 [facility] Comment on above: Performed By: #### M DW, CMP, MG, ANEU, GFR, MORPH, ADIFF, CBC #### [facility] [place] [address] [place], [place] [address] Lymphocyte, Absolute 0.4 10 3/mcL Low 0.9-4.3 [facility] Comment on above: Performed By: #### M DW, CMP, MG, ANEU, GFR, MORPH, ADIFF, CBC #### [facility] [place] [address] [place], [place] [address] Lymphocytes/100 WBC (Bld) 7.4 % Low 20.0-40.0 [facility] Comment on above: Performed By: #### M DW, CMP, MG, ANEU, GFR, MORPH, ADIFF, CBC #### [facility] [place] [address] [place], [place] [address] Monocyte, Absolute 0.6 10 3/mcL Normal 0.1-1.4 [facility] Comment on above: Performed By: #### M DW, CMP, MG, ANEU, GFR, MORPH, ADIFF, CBC #### [facility] [place] [address] [place], [place] [address] Monocytes/100 WBC (Bld) 9.9 % Normal 2.0-13.0 [facility] Comment on above: Performed By: #### M DW, CMP, MG, ANEU, GFR, MORPH, ADIFF, CBC #### [facility] [place] [address] [place], [place] [address] Neutrophils/100 WBC (Bld) 80.0 % High 50.0-75.0 [facility] Comment on above: Performed By: #### M DW, CMP, MG, ANEU, GFR, MORPH, ADIFF, CBC #### [facility] [place] [address] [place], [place] [address] .GFRon 08-22-2024 GFR >60 Normal [facility] Comment on above: Result Comment: GFR Population mean for , Non- Americans Ages 20-29 = 116 mL/min/1.73 sq.m. Ages 30-39 = 107 mL/min/1.73 sq.m. Ages 40-49 = 99 mL/min/1.73 sq.m. Ages 50-59 = 93 mL/min/1.73 sq.m. Ages 60-69 = 85 mL/min/1.73 sq.m. Ages 70+ = 75 mL/min/1.73 sq.m. Chronic Kidney Disease: Less than 60 mL/min/1.73 square meters End Stage Renal Disease: Less than 15 mL/min/1.73 square meters Performed By: #### M DW, CMP, MG, ANEU, GFR, MORPH, ADIFF, CBC #### [facility] [address] [place], [place] [address] GFR Non- 59 ml/min/1.73sqm Normal [facility] Comment on above: Result Comment: GFR Population mean for , Non- Americans Ages 20-29 = 116 mL/min/1.73 sq.m. Ages 30-39 = 107 mL/min/1.73 sq.m. Ages 40-49 = 99 mL/min/1.73 sq.m. Ages 50-59 = 93 mL/min/1.73 sq.m. Ages 60-69 = 85 mL/min/1.73 sq.m. Ages 70+ = 75 mL/min/1.73 sq.m. Chronic Kidney Disease: Less than 60 mL/min/1.73 square meters End Stage Renal Disease: Less than 15 mL/min/1.73 square meters Performed By: #### M DW, CMP, MG, ANEU, GFR, MORPH, ADIFF, CBC #### [facility] [place] [address] [place] [address] .NEUABSon 08-22-2024 Neutrophil, Absolute 4.8 10 3/mcL Normal 2.3-8.1 [facility] Comment on above: Performed By: #### M DW, CMP, MG, ANEU, GFR, MORPH, ADIFF, CBC #### [facility] [place] [address] [place] [address] CBCon 08-22-2024 Erythrocyte distribution width (RBC) [Ratio] 13.1 % Normal 11.5-15.5 [facility] Comment on above: Performed By: #### M DW, CMP, MG, ANEU, GFR, MORPH, ADIFF, CBC #### [facility] [address] [place] [address] Hematocrit (Bld) [Volume fraction] 33.5 % Low 40.0-52.0 [facility] Comment on above: Performed By: #### M DW, CMP, MG, ANEU, GFR, MORPH, ADIFF, CBC #### [facility] [place] [address] [place] [phone] Hgb 11.4 G/dL Low 13.0-17.5 [facility] Comment on above: Performed By: #### M DW, CMP, MG, ANEU, GFR, MORPH, ADIFF, CBC #### [place] [address] [place] [address] MCH (RBC) [Entitic mass] 34.8 pg High 27.0-33.0 [facility] Comment on above: Performed By: #### M DW, CMP, MG, ANEU, GFR, MORPH, ADIFF, CBC #### [facility] [place] [address] [place] [address] MCHC 34.1 G/dL Normal 32.0-36.0 [facility] Comment on above: Performed By: #### M DW, CMP, MG, ANEU, GFR, MORPH, ADIFF, CBC #### [facility] [place] [address] [place], [place] [address] MCV (RBC) [Entitic vol] 102.2 fL High 81.0-100.0 [facility] Comment on above: Performed By: #### M DW, CMP, MG, ANEU, GFR, MORPH, ADIFF, CBC #### [facility] [address] [place], [place] [address] Platelet 350 10 3/mcL Normal 150-450 [facility] Comment on above: Performed By: #### M DW, CMP, MG, ANEU, GFR, MORPH, ADIFF, CBC #### [facility] [place] [address] [place], [place] [address] Platelet mean volume (Bld) [Entitic vol] 8.4 fL Normal 6.4-10.5 [facility] Comment on above: Performed By: #### M DW, CMP, MG, ANEU, GFR, MORPH, ADIFF, CBC #### [facility] [place] [address] [place], [place] [address] RBC 3.28 10 6/mcL Low 4.50-6.00 [facility] Comment on above: Performed By: #### M DW, CMP, MG, ANEU, GFR, MORPH, ADIFF, CBC #### [facility] [place] [address] [place], [place] [address] WBC 6.0 10 3/mcL Normal 4.5-10.8 [facility] Comment on above: Performed By: #### M DW, CMP, MG, ANEU, GFR, MORPH, ADIFF, CBC #### [facility] [address] [place], [place] [address] CMPon 08-22-2024 Albumin Level 2.6 G/dL Low 3.2-4.8 ALLIE MASSILLON Comment on above: Performed By: #### M DW, CMP, MG, ANEU, GFR, MORPH, ADIFF, CBC #### Allie [address] [place], [place] [address] Albumin/Globulin [Mass ratio] 0.7 {ratio} Low 0.9-1.6 [facility] Comment on above: Performed By: #### M DW, CMP, MG, ANEU, GFR, MORPH, ADIFF, CBC #### [facility] [address] [place], [place] [address] ALP [Catalytic activity/Vol] 49 U/L Normal 38-126 [facility] Comment on above: Performed By: #### M DW, CMP, MG, ANEU, GFR, MORPH, ADIFF, CBC #### [facility] [address] [place] [id number] ALT [Catalytic activity/Vol] 47 U/L Normal 12-55 [facility] Comment on above: Performed By: #### M DW, CMP, MG, ANEU, GFR, MORPH, ADIFF, CBC #### [facility] [address] [phone] AST [Catalytic activity/Vol] 39 U/L High 8-34 [facility] Comment on above: Performed By: #### M DW, CMP, MG, ANEU, GFR, MORPH, ADIFF, CBC #### [facility] [address] [id number] Bili Total 0.70 mg/dL Normal 0.20-1.20 [facility] Comment on above: Result Comment: Use of this assay is not recommended for patients undergoing treatment with eltrombopag due to the potential for falsely elevated results. Performed By: #### M DW, CMP, MG, ANEU, GFR, MORPH, ADIFF, CBC #### [facility] [address] [place] [phone] BUN/Creatinine Ratio 29.4 ratio High 10.0-22.0 [facility] Comment on above: Performed By: #### M DW, CMP, MG, ANEU, GFR, MORPH, ADIFF, CBC #### [facility] [address] [id number] Calcium [Mass/Vol] 8.9 mg/dL Normal 8.7-10.4 [facility] Comment on above: Performed By: #### M DW, CMP, MG, ANEU, GFR, MORPH, ADIFF, CBC #### [facility] [place] [address] [place], [place] [address] Chloride [Moles/Vol] 103 mmol/L Normal 98-110 [facility] Comment on above: Performed By: #### M DW, CMP, MG, ANEU, GFR, MORPH, ADIFF, CBC #### [facility] [place] [address] [place], [place] [address] CO2 [Moles/Vol] 23 mmol/L Normal 22-32 [facility] Comment on above: Performed By: #### M DW, CMP, MG, ANEU, GFR, MORPH, ADIFF, CBC #### [facility] [place] [address] [place], [place] [address] Creatinine [Mass/Vol] 1.19 mg/dL Normal 0.60-1.40 [facility] Comment on above: Result Comment: Test ing performed on [employer] analyzer using enzymatic creatinine methodology. Performed By: #### M DW, CMP, MG, ANEU, GFR, MORPH, ADIFF, CBC #### [facility] [place] [address] [place], [place] [address] Electrolyte Balance 11.0 mEq/L Normal 4.0-15.0 [facility] Comment on above: Performed By: #### M DW, CMP, MG, ANEU, GFR, MORPH, ADIFF, CBC #### [facility] [place] [address] [place], [place] [address] Globulin 3.5 G/dL Normal 1.5-3.8 [facility] Comment on above: Performed By: #### M DW, CMP, MG, ANEU, GFR, MORPH, ADIFF, CBC #### [facility] [place] [address] [place], [place] [address] Glucose [Mass/Vol] 128 mg/dL High 82-115 [facility] Comment on above: Performed By: #### M DW, CMP, MG, ANEU, GFR, MORPH, ADIFF, CBC #### [place] [address] [place], [place] [address] Potassium [Moles/Vol] 4.3 mmol/L Normal 3.5-5.0 [facility] Comment on above: Performed By: #### M DW, CMP, MG, ANEU, GFR, MORPH, ADIFF, CBC #### [facility] [place] [address] [place], [place] [address] Sodium [Moles/Vol] 137 mmol/L Normal 136-145 [facility] Comment on above: Performed By: #### M DW, CMP, MG, ANEU, GFR, MORPH, ADIFF, CBC #### [facility] [address] [place], [place] [address] Total Protein 6.1 G/dL Normal 5.7-8.2 [facility] Comment on above: Performed By: #### M DW, CMP, MG, ANEU, GFR, MORPH, ADIFF, CBC #### [facility] [address] [place], [place] [address] Urea nitrogen [Mass/Vol] 35.0 mg/dL High 8.0-22.0 [facility] Comment on above: Performed By: #### M DW, CMP, MG, ANEU, GFR, MORPH, ADIFF, CBC #### [facility] [place] [address] [place], [place] [address] MGon 08-22-2024 Magnesium [Mass/Vol] 1.3 mg/dL Low 1.6-2.4 [facility] Comment on above: Performed By: #### M DW, CMP, MG, ANEU, GFR, MORPH, ADIFF, CBC #### [facility] [address] [place], [place] [address] CT ABD/PELVIS W/ IV CONTRAST ONLYon 08-19-2024 CT ABD/PELVIS W/ IV CONTRAST ONLY ORIGINAL EXAMINATION: CT OF THE ABDOMEN AND PELVIS WITH CONTRAST 08/19/2024 12:20 am TECHNIQUE: CT of the abdomen and pelvis was performed with the administration of intravenous contrast. Multiplanar reformatted images are provided for review. Automated exposure control, iterative reconstruction, and/or weight based adjustment of the mA/kV was utilized to reduce the radiation dose to as low as reasonably achievable. COMPARISON: None. HISTORY: ORDERING SYSTEM PROVIDED HISTORY: Reason for Exam: ams, fever, unsteady gait, lightheaded, dizzy. pain FINDINGS: Lower Chest: No focal consolidation. Organs: No acute findings. Areas of renal scarring bilaterally. GI/Bowel: Colonic diverticulosis without evidence of diverticulitis. Pelvis: Prostatectomy postsurgical changes. Mild bladder wall thickening. Peritoneum/Retroperitoneu m: Nonaneurysmal abdominal aorta with atherosclerotic plaque. No enlarged lymph nodes. Bones/Soft Tissues: Anterior abdominal wall and left inguinal postsurgical changes. Degenerative changes of the spine. IMPRESSION: Mild bladder wall thickening, presumably chronic although if concern for cystitis correlate with urinalysis. Otherwise no acute findings. Interpreted by: Roberto Carias Preliminary Report By: Roberto Carias Electronically signed By Roberto Carias Dictated Date: 08/19/2024 12:24:50 AM Prelim Date: 08/19/2024 12:27:50 AM Sign Date: 08/19/2024 12:27:50 AM Ordering Provider: JONNY Bill ALILE [facility] CT HEAD OR BRAIN W/O CONTRAS Ton 08-19-2024 CT HEAD OR BRAIN W/O CONTRAST ORIGINAL EXAMINATION: CT OF THE HEAD WITHOUT CONTRAST 08/19/2024 12:19 am TECHNIQUE: CT of the head was performed without the administration of intravenous contrast. Automated exposure control, iterative reconstruction, and/or weight based adjustment of the mA/kV was utilized to reduce the radiation dose to as low as reasonably achievable. COMPARISON: MRI brain 12/30/2022. HISTORY: ORDERING SYSTEM PROVIDED HISTORY: Reason for Exam: ams, fever, unsteady gait, lightheaded, dizzy. pain FINDINGS: BRAIN/VENTRICLES: There is no acute intracranial hemorrhage, mass effect or midline shift. No abnormal extra-axial fluid collection. The wooten-white differentiation is maintained without evidence of an acute infarct. There is no evidence of hydrocephalus. 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 The ventricles are enlarged with commensurate enlargement of the sulci most consistent with parenchymal volume loss. Carotid siphon and vertebral artery calcifications are present. ORBITS: Bilateral lens replacements. Postsurgical change of the left orbit. The visualized portion of the orbits demonstrate no acute abnormality. SINUSES: Opacifications of the right ethmoid air cells. Aerated secretions seen within the right frontal sinus with mild mucosal thickening. There is circumferential mucosal thickening with areas of aerated secretions and osteoneogenesis of the right maxillary sinus as sequelae of chronic sinusitis. The remaining paranasal sinuses and mastoid air cells are essentially clear. SOFT TISSUES/SKULL: No acute abnormality of the visualized skull or soft tissues. IMPRESSION: No acute intracranial abnormality. Paranasal sinus disease. Aerated secretions in the right frontal and maxillary sinuses, findings may be seen with acute sinusitis in the appropriate clinical setting. I have personally reviewed the images of this examination and agree with the resident's findings and interpretation. Interpreted by: Roberto Carias Preliminary Report By: Eder Carreon Electronically signed By Roberto Carias Dictated Date: 08/19/2024 12:20:59 AM Prelim Date: 08/19/2024 12:28:06 AM Sign Date: 08/19/2024 12:34:34 AM Ordering Provider: JONNY MATHUR Normal [facility] CVFLURVon 08-19-2024 FLU A PCR Negative Normal Negative [facility] Comment on above: Performed By: #### C VFLURV #### [facility] [place] [address] [address] FLU B PCR Negative Normal Negative [facility] Comment on above: Performed By: #### C VFLURV #### [facility] [address] [address] RSV PCR Negative Normal Negative [facility] Comment on above: Performed By: #### C VFLURV #### [facility] [address] [address] SARS-CoV-2 (COVID-19) RNA LINDSAY+probe Ql (Unsp spec) Negative Normal Negative [facility] Comment on above: Result Comment: This test has been authorized by FDA under an EUA for use by authorized laboratories and has not been FDA cleared or approved. Results from the Xpert Xpress SARS-CoV-2/Flu/RSV or Xpert Xpress SARS-CoV-2 only test should be correlated with the clinical history, epidemiological data, and other data available to the clinician evaluating the patient. Performance of the Xpert Xpress SARS-CoV-2/Flu/RSV or Xpert Xpress SARS-CoV-2 only test has only been established in nasopharyngeal swab specimens. Erroneous test results might occur from improper specimen collection; failure to follow the recommended sample collection, handling, and storage procedures; technical error; or sample mix-up.False negative results may occur if virus is present at levels below the analytical limit of detection. Viral nucleic acid may persist in vivo, independent of virus viability. Detection of analyte target(s) does not imply that the corresponding virus(es) are infectious or are the causative agents for clinical symptoms.Recent patient exposure to FluMist or other live attenuated influenza vaccines may cause inaccurate positive results. Performed By: #### C VFLURV #### [facility] [place] [address] [place], [place] [address] XR CHEST 2 VIEWSon 4 XR CHEST 2 VIEWS ORIGINAL EXAMINATION: TWO XRAY VIEWS OF THE CHEST 08/19/2024 12:20 am COMPARISON: [employer] Up view from CT chest March 18, 2023 HISTORY: ORDERING SYSTEM PROVIDED HISTORY: Reason for Exam: ams, fever, unsteady gait, lightheaded, dizzy. SOB FINDINGS: Cardiomediastinal silhouette is unchanged in size. Costophrenic angles are sharp. No radiographic pneumothorax. No focal consolidation. Osseous structures grossly unchanged. IMPRESSION: No focal consolidation. Interpreted by: Roberto Carias Preliminary Report By: Roberto Carias Electronically signed By Roberto Carias Dictated Date: 08/19/2024 12:27:58 AM Prelim Date: 08/19/2024 12:28:53 AM Sign Date: 08/19/2024 12:28:53 AM Ordering Provider: JONNY MATHUR Normal [facility] .Auto Diffon 08-18-2024 Basophil, Absolute 0.0 10 3/mcL Normal 0.0-0.3 [facility] Comment on above: Performed By: #### M DW, CMP, MG, ANEU, GFR, MORPH, ADIFF, CBC #### [facility] [place] [address] [place], [place] [address] Basophils/100 WBC (Bld) 0.5 % Normal 0.0-2.5 [facility] Comment on above: Performed By: #### M DW, CMP, MG, ANEU, GFR, MORPH, ADIFF, CBC #### [facility] [place] [address] [place], [place] [address] Eosinophil, Absolute 0.2 10 3/mcL Normal 0.0-0.7 [facility] Comment on above: Performed By: #### M DW, CMP, MG, ANEU, GFR, MORPH, ADIFF, CBC #### [facility] [place] [address] [place], [place] [address] Eosinophils/100 WBC (Bld) 4.0 % Normal 0.0-6.0 [facility] Comment on above: Performed By: #### M DW, CMP, MG, ANEU, GFR, MORPH, ADIFF, CBC #### [facility] [place] [address] [place], [place] [address] Lymphocyte, Absolute 0.6 10 3/mcL Low 0.9-4.3 [facility] Comment on above: Performed By: #### M DW, CMP, MG, ANEU, GFR, MORPH, ADIFF, CBC #### [facility] [place] [address] [place], [place] [address] Lymphocytes/100 WBC (Bld) 9.2 % Low 20.0-40.0 [facility] Comment on above: Performed By: #### M DW, CMP, MG, ANEU, GFR, MORPH, ADIFF, CBC #### [facility] [address] [place], [place] [address] Monocyte, Absolute 0.5 10 3/mcL Normal 0.1-1.4 [facility] Comment on above: Performed By: #### M DW, CMP, MG, ANEU, GFR, MORPH, ADIFF, CBC #### [facility] [place] [address] [place], [place] [address] Monocytes/100 WBC (Bld) 8.5 % Normal 2.0-13.0 [facility] Comment on above: Performed By: #### M DW, CMP, MG, ANEU, GFR, MORPH, ADIFF, CBC #### [facility] [address] [place], [place] [address] Neutrophils/100 WBC (Bld) 77.8 % High 50.0-75.0 [facility] Comment on above: Performed By: #### M DW, CMP, MG, ANEU, GFR, MORPH, ADIFF, CBC #### [facility] [place] [address] [place], [place] [address] .GFRon 08-18-2024 GFR 46 ml/min/1.73sqm Normal [facility] Comment on above: Result Comment: GFR Population mean for , Non- Americans Ages 20-29 = 116 mL/min/1.73 sq.m. Ages 30-39 = 107 mL/min/1.73 sq.m. Ages 40-49 = 99 mL/min/1.73 sq.m. Ages 50-59 = 93 mL/min/1.73 sq.m. Ages 60-69 = 85 mL/min/1.73 sq.m. Ages 70+ = 75 mL/min/1.73 sq.m. Chronic Kidney Disease: Less than 60 mL/min/1.73 square meters End Stage Renal Disease: Less than 15 mL/min/1.73 square meters Performed By: #### M DW, CMP, MG, ANEU, GFR, MORPH, ADIFF, CBC #### [facility] [place] [address] [place], [place] [address] GFR Non- 38 ml/min/1.73sqm Normal [facility] Comment on above: Result Comment: GFR Population mean for , Non- Americans Ages 20-29 = 116 mL/min/1.73 sq.m. Ages 30-39 = 107 mL/min/1.73 sq.m. Ages 40-49 = 99 mL/min/1.73 sq.m. Ages 50-59 = 93 mL/min/1.73 sq.m. Ages 60-69 = 85 mL/min/1.73 sq.m. Ages 70+ = 75 mL/min/1.73 sq.m. Chronic Kidney Disease: Less than 60 mL/min/1.73 square meters End Stage Renal Disease: Less than 15 mL/min/1.73 square meters Performed By: #### M DW, CMP, MG, ANEU, GFR, MORPH, ADIFF, CBC #### [facility] [place] [address] [place], [place] [address] .MDWon 08-18-2024 Monocyte Distribution Width 26.76 High 0.00-20.00 [facility] Comment on above: Result Comment: For adults in ED, MDW>20.0 may be associated with a higher risk of sepsis during the first 12hrs of hospital admission Performed By: #### M DW, CMP, MG, ANEU, GFR, MORPH, ADIFF, CBC #### [facility] [place] [address] [id number] .Morphon 08-18-2024 Platelet Estimate Normal Normal [facility] Comment on above: Performed By: #### M DW, CMP, MG, ANEU, GFR, MORPH, ADIFF, CBC #### [facility] [place] [address] [phone] .NEUABSon 08-18-2024 Neutrophil, Absolute 4.7 10 3/mcL Normal 2.3-8.1 [facility] Comment on above: Performed By: #### M DW, CMP, MG, ANEU, GFR, MORPH, ADIFF, CBC #### [facility] [place] [address] [address] CBCon 08-18-2024 Erythrocyte distribution width (RBC) [Ratio] 13.1 % Normal 11.5-15.5 [facility] Comment on above: Performed By: #### M DW, CMP, MG, ANEU, GFR, MORPH, ADIFF, CBC #### [facility] [place] [address] [phone] Hematocrit (Bld) [Volume fraction] 35.0 % Low 40.0-52.0 [facility] Comment on above: Performed By: #### M DW, CMP, MG, ANEU, GFR, MORPH, ADIFF, CBC #### [facility] [place] [address] [phone] Hgb 11.8 G/dL Low 13.0-17.5 [facility] Comment on above: Performed By: #### M DW, CMP, MG, ANEU, GFR, MORPH, ADIFF, CBC #### [facility] [place] [address] [phone] MCH (RBC) [Entitic mass] 33.8 pg High 27.0-33.0 [facility] Comment on above: Performed By: #### M DW, CMP, MG, ANEU, GFR, MORPH, ADIFF, CBC #### [facility] [place] [address] [place], [place] [address] MCHC 33.7 G/dL Normal 32.0-36.0 [facility] Comment on above: Performed By: #### M DW, CMP, MG, ANEU, GFR, MORPH, ADIFF, CBC #### [facility] [place] [address] [place], [place] [address] MCV (RBC) [Entitic vol] 100.3 fL High 81.0-100.0 [facility] Comment on above: Performed By: #### M DW, CMP, MG, ANEU, GFR, MORPH, ADIFF, CBC #### [facility] [place] [address] [place], [place] [address] Platelet 187 10 3/mcL Normal 150-450 [facility] Comment on above: Performed By: #### M DW, CMP, MG, ANEU, GFR, MORPH, ADIFF, CBC #### [facility] [place] [address] [place], [place] [address] Platelet mean volume (Bld) [Entitic vol] 8.6 fL Normal 6.4-10.5 [facility] Comment on above: Performed By: #### M DW, CMP, MG, ANEU, GFR, MORPH, ADIFF, CBC #### [facility] [address] [place], [place] [address] RBC 3.49 10 6/mcL Low 4.50-6.00 [facility] Comment on above: Performed By: #### M DW, CMP, MG, ANEU, GFR, MORPH, ADIFF, CBC #### [facility] [address] [place], [place] [address] WBC 6.0 10 3/mcL Normal 4.5-10.8 [facility] Comment on above: Performed By: #### M DW, CMP, MG, ANEU, GFR, MORPH, ADIFF, CBC #### [facility] [place] [address] [place], [place] [address] CMPon 08-18-2024 Albumin Level 2.5 G/dL Low 3.4-4.8 [facility] Comment on above: Performed By: #### M DW, CMP, MG, ANEU, GFR, MORPH, ADIFF, CBC #### [facility] [address] [place], [place] [address] Albumin/Globulin [Mass ratio] 0.7 {ratio} Low 1.1-2.5 [facility] Comment on above: Performed By: #### M DW, CMP, MG, ANEU, GFR, MORPH, ADIFF, CBC #### [facility] [address] [place], [place] [address] ALP [Catalytic activity/Vol] 43 U/L Normal 40-135 [facility] Comment on above: Performed By: #### M DW, CMP, MG, ANEU, GFR, MORPH, ADIFF, CBC #### [facility] [address] [place], [place] [address] ALT [Catalytic activity/Vol] 49 U/L Normal 16-63 [facility] Comment on above: Performed By: #### M DW, CMP, MG, ANEU, GFR, MORPH, ADIFF, CBC #### [facility] [address] [place], [place] [address] AST [Catalytic activity/Vol] 75 U/L High 10-40 [facility] Comment on above: Performed By: #### M DW, CMP, MG, ANEU, GFR, MORPH, ADIFF, CBC #### [facility] [address] [place], [place] [address] Bili Total 0.4 mg/dL Normal 0.2-1.0 [facility] Comment on above: Result Comment: Use of this assay is not recommended for patients undergoing treatment with eltrombopag due to the potential for falsely elevated results. Performed By: #### M DW, CMP, MG, ANEU, GFR, MORPH, ADIFF, CBC #### [facility] [place] [address] [place], [place] [address] BUN/Creatinine Ratio 36 ratio High 7-27 [facility] Comment on above: Performed By: #### M DW, CMP, MG, ANEU, GFR, MORPH, ADIFF, CBC #### [facility] [place] [address] [place], [place] [address] Calcium [Mass/Vol] 8.7 mg/dL Normal 8.4-10.2 [facility] Comment on above: Performed By: #### M DW, CMP, MG, ANEU, GFR, MORPH, ADIFF, CBC #### [facility] [place] [address] [place], [place] [address] Chloride [Moles/Vol] 93 mmol/L Low 98-107 [facility] Comment on above: Performed By: #### M DW, CMP, MG, ANEU, GFR, MORPH, ADIFF, CBC #### [facility] [place] [address] [place], [place] [address] CO2 [Moles/Vol] 22 mmol/L Low 23-31 [facility] Comment on above: Performed By: #### M DW, CMP, MG, ANEU, GFR, MORPH, ADIFF, CBC #### [facility] [place] [address] [place], [place] [address] Creatinine [Mass/Vol] 1.73 mg/dL High 0.70-1.30 [facility] Comment on above: Result Comment: Test ing performed on Siem[employer] Dimension EXL analyzer using a modified kinetic Fred technique. Performed By: #### M DW, CMP, MG, ANEU, GFR, MORPH, ADIFF, CBC #### [facility] [place] [address] [place], [place] [address] Electrolyte Balance 15.0 mEq/L Normal 4.0-15.0 [facility] Comment on above: Performed By: #### M DW, CMP, MG, ANEU, GFR, MORPH, ADIFF, CBC #### [facility] [place] [address] [place], [place] [address] Globulin 3.7 G/dL Normal [facility] Comment on above: Performed By: #### M DW, CMP, MG, ANEU, GFR, MORPH, ADIFF, CBC #### [facility] [place] [address] [place], [place] [address] Glucose [Mass/Vol] 112 mg/dL High 83-110 [facility] Comment on above: Performed By: #### M DW, CMP, MG, ANEU, GFR, MORPH, ADIFF, CBC #### [facility] [place] [address] [place], [place] [address] Potassium [Moles/Vol] 3.1 mmol/L Low 3.5-5.1 [facility] Comment on above: Performed By: #### M DW, CMP, MG, ANEU, GFR, MORPH, ADIFF, CBC #### [facility] [place] [address] [place], [place] [address] Sodium [Moles/Vol] 130 mmol/L Low 136-145 [facility] Comment on above: Performed By: #### M DW, CMP, MG, ANEU, GFR, MORPH, ADIFF, CBC #### [facility] [address] [place], [place] [address] Total Protein 6.2 G/dL Low 6.4-8.2 [facility] Comment on above: Performed By: #### M DW, CMP, MG, ANEU, GFR, MORPH, ADIFF, CBC #### [facility] [address] [place], [place] [address] Urea nitrogen [Mass/Vol] 63 mg/dL High 7-18 [facility] Comment on above: Performed By: #### M DW, CMP, MG, ANEU, GFR, MORPH, ADIFF, CBC #### [facility] [place] [address] [place], [place] [address] MGon 08-18-2024 Magnesium [Mass/Vol] 1.3 mg/dL Low 1.8-2.4 [facility] Comment on above: Performed By: #### M DW, CMP, MG, ANEU, GFR, MORPH, ADIFF, CBC #### [facility] [place] [address] [place], [place] [address] UAon 08-18-2024 Color (U) Yellow Normal [facility] Comment on above: Performed By: #### M DW, CMP, MG, ANEU, GFR, MORPH, ADIFF, CBC #### [facility] [place] [address] [place], [place] [address] Glucose (U) [Mass/Vol] Negative Normal Negative [facility] Comment on above: Performed By: #### M DW, CMP, MG, ANEU, GFR, MORPH, ADIFF, CBC #### [facility] [place] [address] [place], [place] [address] Ketones Ql (U) Negative Normal Neg-Trace [facility] Comment on above: Performed By: #### M DW, CMP, MG, ANEU, GFR, MORPH, ADIFF, CBC #### [facility] [place] [address] [place] [id number] UA Appear Clear Normal [facility] Comment on above: Performed By: #### M DW, CMP, MG, ANEU, GFR, MORPH, ADIFF, CBC #### [facility] [place] [address] [place] [id number] UA Blood Negative Normal Neg-Trace [facility] Comment on above: Performed By: #### M DW, CMP, MG, ANEU, GFR, MORPH, ADIFF, CBC #### [facility] [place] [address] [place] [id number] UA Leuk Est Negative Normal Negative [facility] Comment on above: Performed By: #### M DW, CMP, MG, ANEU, GFR, MORPH, ADIFF, CBC #### [facility] [place] [address] [place] [id number] UA Nitrite Negative Normal Negative [facility] Comment on above: Performed By: #### M DW, CMP, MG, ANEU, GFR, MORPH, ADIFF, CBC #### [facility] [place] [address] [place] [id number] UA pH 5.5 Normal 5.0 - 8.0 [facility] Comment on above: Performed By: #### M DW, CMP, MG, ANEU, GFR, MORPH, ADIFF, CBC #### [facility] [place] [address] [place] [phone] UA Protein 30 mg/dL Normal Negative [facility] Comment on above: Performed By: #### M DW, CMP, MG, ANEU, GFR, MORPH, ADIFF, CBC #### [facility] [place] [address] [place], [place] [address] UA Spec Grav 1.015 Normal [facility] Comment on above: Performed By: #### M DW, CMP, MG, ANEU, GFR, MORPH, ADIFF, CBC #### [facility] [place] [address] [place], [place] [address] UA Specimen Type Clean Catch Normal [facility] Comment on above: Performed By: #### M DW, CMP, MG, ANEU, GFR, MORPH, ADIFF, CBC #### [facility] [place] [address] [place] [id number] UA Urobilinogen 0.2 E.U./dL Normal [facility] Comment on above: Performed By: #### M DW, CMP, MG, ANEU, GFR, MORPH, ADIFF, CBC #### [facility] [place] [address] [place], [place] [address] Urobilinogen (U) [Mass/Vol] Negative Normal Neg-Trace [facility] Comment on above: Performed By: #### M DW, CMP, MG, ANEU, GFR, MORPH, ADIFF, CBC #### [facility] [place] [address] [place], [place] [address] .Auto Diffon 08-14-2024 Basophil, Absolute 0.0 10 3/mcL Normal 0.0-0.3 [facility] Comment on above: Performed By: #### M DW, CMP, MG, ANEU, GFR, MORPH, ADIFF, CBC #### [facility] [place] [address] [place], [place] [address] Basophils/100 WBC (Bld) 0.7 % Normal 0.0-2.5 [facility] Comment on above: Performed By: #### M DW, CMP, MG, ANEU, GFR, MORPH, ADIFF, CBC #### [facility] [place] [address] [place], [place] [address] Eosinophil, Absolute 0.0 10 3/mcL Normal 0.0-0.7 [facility] Comment on above: Performed By: #### M DW, CMP, MG, ANEU, GFR, MORPH, ADIFF, CBC #### [facility] [place] [address] [place], [place] [address] Eosinophils/100 WBC (Bld) 0.3 % Normal 0.0-6.0 [facility] Comment on above: Performed By: #### M DW, CMP, MG, ANEU, GFR, MORPH, ADIFF, CBC #### [facility] [place] [address] [place], [place] [address] Lymphocyte, Absolute 0.4 10 3/mcL Low 0.9-4.3 [facility] Comment on above: Performed By: #### M DW, CMP, MG, ANEU, GFR, MORPH, ADIFF, CBC #### [facility] [place] [address] [place], [place] [address] Lymphocytes/100 WBC (Bld) 7.6 % Low 20.0-40.0 [facility] Comment on above: Performed By: #### M DW, CMP, MG, ANEU, GFR, MORPH, ADIFF, CBC #### [facility] [place] [address] [place], [place] [address] Monocyte, Absolute 0.6 10 3/mcL Normal 0.1-1.4 [facility] Comment on above: Performed By: #### M DW, CMP, MG, ANEU, GFR, MORPH, ADIFF, CBC #### [facility] [place] [address] [place], [place] [address] Monocytes/100 WBC (Bld) 12.4 % Normal 2.0-13.0 ALLIE MASSILLON Comment on above: Performed By: #### M DW, CMP, MG, ANEU, GFR, MORPH, ADIFF, CBC #### Allie [place] [address] [place], [place] [address] Neutrophils/100 WBC (Bld) 79.0 % High 50.0-75.0 ALLIE MASSILLON Comment on above: Performed By: #### M DW, CMP, MG, ANEU, GFR, MORPH, ADIFF, CBC #### Allie [place] [address] [place], [place] [address] .GFRon 08-14-2024 GFR 64 ml/min/1.73sqm Normal ALLIE MASSILLON Comment on above: Result Comment: GFR Population mean for , Non- Americans Ages 20-29 = 116 mL/min/1.73 sq.m. Ages 30-39 = 107 mL/min/1.73 sq.m. Ages 40-49 = 99 mL/min/1.73 sq.m. Ages 50-59 = 93 mL/min/1.73 sq.m. Ages 60-69 = 85 mL/min/1.73 sq.m. Ages 70+ = 75 mL/min/1.73 sq.m. Chronic Kidney Disease: Less than 60 mL/min/1.73 square meters End Stage Renal Disease: Less than 15 mL/min/1.73 square meters Performed By: #### M DW, CMP, MG, ANEU, GFR, MORPH, ADIFF, CBC #### Allie [place] [address] [place], [place] [address] GFR Non- 53 ml/min/1.73sqm Normal ALLIE VALADEZ Comment on above: Result Comment: GFR Population mean for , Non- Americans Ages 20-29 = 116 mL/min/1.73 sq.m. Ages 30-39 = 107 mL/min/1.73 sq.m. Ages 40-49 = 99 mL/min/1.73 sq.m. Ages 50-59 = 93 mL/min/1.73 sq.m. Ages 60-69 = 85 mL/min/1.73 sq.m. Ages 70+ = 75 mL/min/1.73 sq.m. Chronic Kidney Disease: Less than 60 mL/min/1.73 square meters End Stage Renal Disease: Less than 15 mL/min/1.73 square meters Performed By: #### M DW, CMP, MG, ANEU, GFR, MORPH, ADIFF, CBC #### Allie [place] [address] [place], [place] [address] .MDWon 08-14-2024 Monocyte Distribution Width 31.78 High 0.00-20.00 ALLIE VALADEZ Comment on above: Result Comment: For adults in ED, MDW>20.0 may be associated with a higher risk of sepsis during the first 12hrs of hospital admission Performed By: #### M DW, CMP, MG, ANEU, GFR, MORPH, ADIFF, CBC #### [place]ian [place] [address] [place], [place] [address] .NEUABSon 08-14-2024 Neutrophil, Absolute 3.9 10 3/mcL Normal 2.3-8.1 [facility] Comment on above: Performed By: #### M DW, CMP, MG, ANEU, GFR, MORPH, ADIFF, CBC #### Allie [place] [address] [place] [id number] CBCon 08-14-2024 Erythrocyte distribution width (RBC) [Ratio] 13.1 % Normal 11.5-15.5 [facility] Comment on above: Performed By: #### M DW, CMP, MG, ANEU, GFR, MORPH, ADIFF, CBC #### Allie [place] [address] [place] [phone] Hematocrit (Bld) [Volume fraction] 37.1 % Low 40.0-52.0 [facility] Comment on above: Performed By: #### M DW, CMP, MG, ANEU, GFR, MORPH, ADIFF, CBC #### [place] [address] [place] [id number] Hgb 12.3 G/dL Low 13.0-17.5 [facility] Comment on above: Performed By: #### M DW, CMP, MG, ANEU, GFR, MORPH, ADIFF, CBC #### Allie [place] [address] [place] [phone] MCH (RBC) [Entitic mass] 34.2 pg High 27.0-33.0 [facility] Comment on above: Performed By: #### M DW, CMP, MG, ANEU, GFR, MORPH, ADIFF, CBC #### Allie [place] [address] [place] [phone] MCHC 33.3 G/dL Normal 32.0-36.0 [facility] Comment on above: Performed By: #### M DW, CMP, MG, ANEU, GFR, MORPH, ADIFF, CBC #### Allie [place] [address] [place] [phone] MCV (RBC) [Entitic vol] 102.9 fL High 81.0-100.0 ALLIE MASSILLON Comment on above: Performed By: #### M DW, CMP, MG, ANEU, GFR, MORPH, ADIFF, CBC #### Allie [place] [address] [place], [place] [address] Platelet 175 10 3/mcL Normal 150-450 ALLIE MASSILLON Comment on above: Performed By: #### M DW, CMP, MG, ANEU, GFR, MORPH, ADIFF, CBC #### Allie [place] [address] [place], [place] [address] Platelet mean volume (Bld) [Entitic vol] 8.6 fL Normal 6.4-10.5 ALLIE MASSILLON Comment on above: Performed By: #### M DW, CMP, MG, ANEU, GFR, MORPH, ADIFF, CBC #### Allie [place] [address] [place], [place] [address] RBC 3.61 10 6/mcL Low 4.50-6.00 ALLIE MASSILLON Comment on above: Performed By: #### M DW, CMP, MG, ANEU, GFR, MORPH, ADIFF, CBC #### Allie [place] [address] [place], [place] [address] WBC 5.0 10 3/mcL Normal 4.5-10.8 ALLIE MASSILLON Comment on above: Performed By: #### M DW, CMP, MG, ANEU, GFR, MORPH, ADIFF, CBC #### Allie [place] [address] [place], [place] [address] CMPon 08-14-2024 Albumin Level 3.4 G/dL Normal 3.4-4.8 ALLIE MASSILLON Comment on above: Performed By: #### M DW, CMP, MG, ANEU, GFR, MORPH, ADIFF, CBC #### Allie [place] [address] [place], [place] [address] Albumin/Globulin [Mass ratio] 0.9 {ratio} Low 1.1-2.5 ALLIE MASSILLON Comment on above: Performed By: #### M DW, CMP, MG, ANEU, GFR, MORPH, ADIFF, CBC #### Allie [place] [address] [place], [place] [address] ALP [Catalytic activity/Vol] 38 U/L Low 40-135 [facility] Comment on above: Performed By: #### M DW, CMP, MG, ANEU, GFR, MORPH, ADIFF, CBC #### [place] [address] [place], [place] [address] ALT [Catalytic activity/Vol] 19 U/L Normal 16-63 [facility] Comment on above: Performed By: #### M DW, CMP, MG, ANEU, GFR, MORPH, ADIFF, CBC #### Allie [place] [address] [place], [place] [address] AST [Catalytic activity/Vol] 35 U/L Normal 10-40 [facility] Comment on above: Performed By: #### M DW, CMP, MG, ANEU, GFR, MORPH, ADIFF, CBC #### Allie [place] [address] [place], [place] [address] Bili Total 0.6 mg/dL Normal 0.2-1.0 [facility] Comment on above: Result Comment: Use of this assay is not recommended for patients undergoing treatment with eltrombopag due to the potential for falsely elevated results. Performed By: #### M DW, CMP, MG, ANEU, GFR, MORPH, ADIFF, CBC #### Allie [place] [address] [place], [place] [address] BUN/Creatinine Ratio 16 ratio Normal 7-27 [facility] Comment on above: Performed By: #### M DW, CMP, MG, ANEU, GFR, MORPH, ADIFF, CBC #### [place] [address] [place], [place] [address] Calcium [Mass/Vol] 8.8 mg/dL Normal 8.4-10.2 [facility]ULT[facility] N MASSILL[facility] Comment on above: Performed By: #### M DW, CMP, MG, ANEU, GFR, MORPH, ADIFF, CBC #### [facility] [address] [place], [place] [address] Chloride [Moles/Vol] 95 mmol/L Low 98-107 [facility] Comment on above: Performed By: #### M DW, CMP, MG, ANEU, GFR, MORPH, ADIFF, CBC #### Alile [place] [address] [place], [place] [address] CO2 [Moles/Vol] 25 mmol/L Normal 23-31 ALLIE MASSILLON Comment on above: Performed By: #### M DW, CMP, MG, ANEU, GFR, MORPH, ADIFF, CBC #### [facility] [address] [place], [place] [address] Creatinine [Mass/Vol] 1.30 mg/dL Normal 0.70-1.30 [facility] Comment on above: Result Comment: Test ing performed on Siemens Dimension EXL analyzer using a modified kinetic Fred technique. Performed By: #### M DW, CMP, MG, ANEU, GFR, MORPH, ADIFF, CBC #### Allie [place] [address] [place], [place] [address] Electrolyte Balance 11.0 mEq/L Normal 4.0-15.0 AULTM AN MASSILLON Comment on above: Performed By: #### M DW, CMP, MG, ANEU, GFR, MORPH, ADIFF, CBC #### [facility] [address] [place], [place] [address] Globulin 3.6 G/dL Normal ALLIE MASSILLO Comment on above: Performed By: #### M DW, CMP, MG, ANEU, GFR, MORPH, ADIFF, CBC #### [facility] [address] [place], [place] [address] Glucose [Mass/Vol] 140 mg/dL High 83-110 AULTMA N MASSILL[facility] Comment on above: Performed By: #### M DW, CMP, MG, ANEU, GFR, MORPH, ADIFF, CBC #### [facility] [address] [place], [place] [address] Potassium [Moles/Vol] 5.0 mmol/L Normal 3.5-5.1 AUL TMAN MASSILLON Comment on above: Performed By: #### M DW, CMP, MG, ANEU, GFR, MORPH, ADIFF, CBC #### [facility] [address] [place], [place] [address] Sodium [Moles/Vol] 131 mmol/L Low 136-145 [facility] Comment on above: Performed By: #### M DW, CMP, MG, ANEU, GFR, MORPH, ADIFF, CBC #### [facility] [address] [place], [place] [address] Total Protein 7.0 G/dL Normal 6.4-8.2 [facility] Comment on above: Performed By: #### M DW, CMP, MG, ANEU, GFR, MORPH, ADIFF, CBC #### [facility] [address] [place], [place] [address] Urea nitrogen [Mass/Vol] 21 mg/dL High 7-18 [facility] Comment on above: Performed By: #### M DW, CMP, MG, ANEU, GFR, MORPH, ADIFF, CBC #### [facility] [address] [place], [place] [address] LACon 08-14-2024 Lactic Acid Lvl 1.7 mmol/L Normal 0.4-2.0 [facility] Comment on above: Performed By: #### M DW, CMP, MG, ANEU, GFR, MORPH, ADIFF, CBC #### [facility] [address] [place], [place] [address] .Auto Diffon 04-05-2024 Basophil, Absolute 0.0 10 3/mcL Normal 0.0-0.3 [facility] ([place] Comment on above: Performed By: #### P SA, CMP, ADIFF, ESR, GFR, CBC, ANEU #### [address] [address] Basophils/100 WBC (Bld) 0.7 % Normal 0.0-2.5 [facility] ([place] Comment on above: Performed By: #### P SA, CMP, ADIFF, ESR, GFR, CBC, ANEU #### [address] [address] Eosinophil, Absolute 0.4 10 3/mcL Normal 0.0-0.7 [facility] ([place] Comment on above: Performed By: #### P SA, CMP, ADIFF, ESR, GFR, CBC, ANEU #### [address] [address] Eosinophils/100 WBC (Bld) 7.7 % High 0.0-6.0 [facility] ([place] Comment on above: Performed By: #### P SA, CMP, ADIFF, ESR, GFR, CBC, ANEU #### [address] [address] Lymphocyte, Absolute 1.4 10 3/mcL Normal 0.9-4.3 [facility] ([place] Comment on above: Performed By: #### P SA, CMP, ADIFF, ESR, GFR, CBC, ANEU #### [address] [address] Lymphocytes/100 WBC (Bld) 26.7 % Normal 20.0-40.0 [facility] ([place] Comment on above: Performed By: #### P SA, CMP, ADIFF, ESR, GFR, CBC, ANEU #### [address] [address] Monocyte, Absolute 0.6 10 3/mcL Normal 0.1-1.4 [facility] ([place] Comment on above: Performed By: #### P SA, CMP, ADIFF, ESR, GFR, CBC, ANEU #### [address] [address] Monocytes/100 WBC (Bld) 11.6 % Normal 2.0-13.0 [facility] ([place] Comment on above: Performed By: #### P SA, CMP, ADIFF, ESR, GFR, CBC, ANEU #### [address] [address] Neutrophils/100 WBC (Bld) 53.3 % Normal 50.0-75.0 [facility] ([place] Comment on above: Performed By: #### P SA, CMP, ADIFF, ESR, GFR, CBC, ANEU #### [address] [address] .GFRon 04-05-2024 GFR Non- 49 ml/min/1.73sqm Normal [facility] ([place] Comment on above: Result Comment: GFR Population mean for , Non- Americans Ages 20-29 = 116 mL/min/1.73 sq.m. Ages 30-39 = 107 mL/min/1.73 sq.m. Ages 40-49 = 99 mL/min/1.73 sq.m. Ages 50-59 = 93 mL/min/1.73 sq.m. Ages 60-69 = 85 mL/min/1.73 sq.m. Ages 70+ = 75 mL/min/1.73 sq.m. Chronic Kidney Disease: Less than 60 mL/min/1.73 square meters End Stage Renal Disease: Less than 15 mL/min/1.73 square meters Performed By: #### P SA, CMP, ADIFF, ESR, GFR, CBC, ANEU #### [address] [address] GFR 60 ml/min/1.73sqm Normal [facility] ([place] Comment on above: Result Comment: GFR Population mean for , Non- Americans Ages 20-29 = 116 mL/min/1.73 sq.m. Ages 30-39 = 107 mL/min/1.73 sq.m. Ages 40-49 = 99 mL/min/1.73 sq.m. Ages 50-59 = 93 mL/min/1.73 sq.m. Ages 60-69 = 85 mL/min/1.73 sq.m. Ages 70+ = 75 mL/min/1.73 sq.m. Chronic Kidney Disease: Less than 60 mL/min/1.73 square meters End Stage Renal Disease: Less than 15 mL/min/1.73 square meters Performed By: #### P SA, CMP, ADIFF, ESR, GFR, CBC, ANEU #### [address] [address] .NEUABSon 04-05-2024 Neutrophil, Absolute 2.7 10 3/mcL Normal 2.3-8.1 [facility] ([place] Comment on above: Performed By: #### P SA, CMP, ADIFF, ESR, GFR, CBC, ANEU #### [address] [address] CBCon 04-05-2024 Erythrocyte distribution width (RBC) [Ratio] 12.3 % Normal 11.5-15.5 [facility] ([place] Comment on above: Performed By: #### P SA, CMP, ADIFF, ESR, GFR, CBC, ANEU #### [place] [address] Hematocrit (Bld) [Volume fraction] 36.1 % Low 40.0-52.0 [facility] ([place] Comment on above: Performed By: #### P SA, CMP, ADIFF, ESR, GFR, CBC, ANEU #### [place] [address] Hgb 12.4 G/dL Low 13.0-17.5 [facility] ([place] Comment on above: Performed By: #### P SA, CMP, ADIFF, ESR, GFR, CBC, ANEU #### [place] [address] MCH (RBC) [Entitic mass] 36.2 pg High 27.0-33.0 [facility] ([place] Comment on above: Performed By: #### P SA, CMP, ADIFF, ESR, GFR, CBC, ANEU #### [place] [address] MCHC 34.4 G/dL Normal 32.0-36.0 [facility] ([place] Comment on above: Performed By: #### P SA, CMP, ADIFF, ESR, GFR, CBC, ANEU #### [place] [address] MCV (RBC) [Entitic vol] 105.2 fL High 81.0-100.0 [facility] ([place] Comment on above: Performed By: #### P SA, CMP, ADIFF, ESR, GFR, CBC, ANEU #### [place] [address] Platelet 240 10 3/mcL Normal 150-450 [facility] ([place] Comment on above: Performed By: #### P SA, CMP, ADIFF, ESR, GFR, CBC, ANEU #### [place] [address] Platelet mean volume (Bld) [Entitic vol] 8.3 fL Normal 6.4-10.5 [facility] ([place] Comment on above: Performed By: #### P SA, CMP, ADIFF, ESR, GFR, CBC, ANEU #### [place] [address] RBC 3.43 10 6/mcL Low 4.50-6.00 [facility] ([place] Comment on above: Performed By: #### P SA, CMP, ADIFF, ESR, GFR, CBC, ANEU #### [place] [address] WBC 5.1 10 3/mcL Normal 4.5-10.8 [facility] ([place] Comment on above: Performed By: #### P SA, CMP, ADIFF, ESR, GFR, CBC, ANEU #### [place] [address] CMPon 04-05-2024 Albumin Level 3.5 G/dL Normal 3.2-4.8 [facility] ([place] Comment on above: Performed By: #### P SA, CMP, ADIFF, ESR, GFR, CBC, ANEU #### [place] [address] Albumin/Globulin [Mass ratio] 1.3 {ratio} Normal 0.9-1.6 [facility] ([place] Comment on above: Performed By: #### P SA, CMP, ADIFF, ESR, GFR, CBC, ANEU #### [place] [address] ALP [Catalytic activity/Vol] 49 U/L Normal 38-126 [facility] ([place] Comment on above: Performed By: #### P SA, CMP, ADIFF, ESR, GFR, CBC, ANEU #### [place] [address] ALT [Catalytic activity/Vol] 24 U/L Normal 12-55 [facility] ([place] Comment on above: Performed By: #### P SA, CMP, ADIFF, ESR, GFR, CBC, ANEU #### [place] [address] AST [Catalytic activity/Vol] 30 U/L Normal 8-34 [facility] ([place] Comment on above: Performed By: #### P SA, CMP, ADIFF, ESR, GFR, CBC, ANEU #### [address] [address] Bili Total 0.40 mg/dL Normal 0.20-1.20 [facility] ([place] Comment on above: Result Comment: Use of this assay is not recommended for patients undergoing treatment with eltrombopag due to the potential for falsely elevated results. Performed By: #### P SA, CMP, ADIFF, ESR, GFR, CBC, ANEU #### [place] [id number] BUN/Creatinine Ratio 24.6 ratio High 10.0-22.0 [facility] ([place] Comment on above: Performed By: #### P SA, CMP, ADIFF, ESR, GFR, CBC, ANEU #### [place] [id number] Calcium [Mass/Vol] 9.2 mg/dL Normal 8.7-10.4 [facility] ([place] Comment on above: Performed By: #### P SA, CMP, ADIFF, ESR, GFR, CBC, ANEU #### [address] [address] Chloride [Moles/Vol] 108 mmol/L Normal 98-110 [facility] ([place] Comment on above: Performed By: #### P SA, CMP, ADIFF, ESR, GFR, CBC, ANEU #### [address] [address] CO2 [Moles/Vol] 21 mmol/L Low 22-32 [facility] ([place] Comment on above: Performed By: #### P SA, CMP, ADIFF, ESR, GFR, CBC, ANEU #### [address] [address] Creatinine [Mass/Vol] 1.38 mg/dL Normal 0.60-1.40 [facility] ([place] Comment on above: Performed By: #### P SA, CMP, ADIFF, ESR, GFR, CBC, ANEU #### Allie[address] [address] Electrolyte Balance 7.0 mEq/L Normal 4.0-15.0 [facility] ([place] Comment on above: Performed By: #### P SA, CMP, ADIFF, ESR, GFR, CBC, ANEU #### [address] [address] Globulin 2.7 G/dL Normal 1.5-3.8 [facility] ([place] Comment on above: Performed By: #### P SA, CMP, ADIFF, ESR, GFR, CBC, ANEU #### [address] [address] Glucose [Mass/Vol] 87 mg/dL Normal 82-115 [facility] ([place] Comment on above: Performed By: #### P SA, CMP, ADIFF, ESR, GFR, CBC, ANEU #### [address] [address] Potassium [Moles/Vol] 5.2 mmol/L High 3.5-5.0 [facility] ([place] Comment on above: Performed By: #### P SA, CMP, ADIFF, ESR, GFR, CBC, ANEU #### [address] [address] Sodium [Moles/Vol] 136 mmol/L Normal 136-145 [facility] ([place] Comment on above: Performed By: #### P SA, CMP, ADIFF, ESR, GFR, CBC, ANEU #### [place] [id number] Total Protein 6.2 G/dL Normal 5.7-8.2 [facility] ([place] Comment on above: Result Comment: No te - New Reference Range in effect 20 Performed By: #### P SA, CMP, ADIFF, ESR, GFR, CBC, ANEU #### [address] [address] Urea nitrogen [Mass/Vol] 34.0 mg/dL High 8.0-22.0 [facility] ([place] Comment on above: Performed By: #### P SA, CMP, ADIFF, ESR, GFR, CBC, ANEU #### [address] [address] ESRon 04-05-2024 Erythrocyte Sed Rate 7 mm/hr Normal 0-20 [facility] ([place] Comment on above: Performed By: #### P SA, CMP, ADIFF, ESR, GFR, CBC, ANEU #### [address] [address] PSAon 04-05-2024 Prostate Specific Antigen <0.04 Normal 0.02-4.00 [facility] ([place] Comment on above: Result Comment: Tami ent results determined by assays using different manufacturers for methods may not be comparable. Performed By: #### P SA, CMP, ADIFF, ESR, GFR, CBC, ANEU #### [address] [address] .Auto Diffon 12-15-2023 Basophil, Absolute 0.0 10 3/mcL Normal 0.0-0.3 [facility] ([place] Comment on above: Performed By: #### A 1C, CMP, GFR, FE, ANEU, CBC, ADIFF ####[address] [address] Basophils/100 WBC (Bld) 0.8 % Normal 0.0-2.5 [facility] ([place] Comment on above: Performed By: #### A 1C, CMP, GFR, FE, ANEU, CBC, ADIFF ####[address] [address] Eosinophil, Absolute 0.4 10 3/mcL Normal 0.0-0.7 [facility] ([place] Comment on above: Performed By: #### A 1C, CMP, GFR, FE, ANEU, CBC, ADIFF ####[address] [address] Eosinophils/100 WBC (Bld) 8.6 % High 0.0-6.0 [facility] ([place] Comment on above: Performed By: #### A 1C, CMP, GFR, FE, ANEU, CBC, ADIFF ####[place] [address] Lymphocyte, Absolute 1.5 10 3/mcL Normal 0.9-4.3 [facility] ([place] Comment on above: Performed By: #### A 1C, CMP, GFR, FE, ANEU, CBC, ADIFF ####[address] [address] Lymphocytes/100 WBC (Bld) 29.6 % Normal 20.0-40.0 [facility] ([place] Comment on above: Performed By: #### A 1C, CMP, GFR, FE, ANEU, CBC, ADIFF ####[address] [address] Monocyte, Absolute 0.5 10 3/mcL Normal 0.1-1.4 [facility] ([place] Comment on above: Performed By: #### A 1C, CMP, GFR, FE, ANEU, CBC, ADIFF ####[address] [address] Monocytes/100 WBC (Bld) 9.8 % Normal 2.0-13.0 [facility] ([place] Comment on above: Performed By: #### A 1C, CMP, GFR, FE, ANEU, CBC, ADIFF ####[address] [address] Neutrophils/100 WBC (Bld) 51.2 % Normal 50.0-75.0 [facility] ([place] Comment on above: Performed By: #### A 1C, CMP, GFR, FE, ANEU, CBC, ADIFF ####[address] [address] .GFRon 12-15-2023 GFR Non- >60 Normal [facility] ([place] Comment on above: Result Comment: GFR Population mean for , Non- Americans Ages 20-29 = 116 mL/min/1.73 sq.m. Ages 30-39 = 107 mL/min/1.73 sq.m. Ages 40-49 = 99 mL/min/1.73 sq.m. Ages 50-59 = 93 mL/min/1.73 sq.m. Ages 60-69 = 85 mL/min/1.73 sq.m. Ages 70+ = 75 mL/min/1.73 sq.m. Chronic Kidney Disease: Less than 60 mL/min/1.73 square meters End Stage Renal Disease: Less than 15 mL/min/1.73 square meters Performed By: #### A 1C, CMP, GFR, FE, ANEU, CBC, ADIFF ####[address] [address] GFR >60 Normal [facility] ([place] Comment on above: Result Comment: GFR Population mean for , Non- Americans Ages 20-29 = 116 mL/min/1.73 sq.m. Ages 30-39 = 107 mL/min/1.73 sq.m. Ages 40-49 = 99 mL/min/1.73 sq.m. Ages 50-59 = 93 mL/min/1.73 sq.m. Ages 60-69 = 85 mL/min/1.73 sq.m. Ages 70+ = 75 mL/min/1.73 sq.m. Chronic Kidney Disease: Less than 60 mL/min/1.73 square meters End Stage Renal Disease: Less than 15 mL/min/1.73 square meters Performed By: #### A 1C, CMP, GFR, FE, ANEU, CBC, ADIFF ####[place] [address] .NEUABSon 12-15-2023 Neutrophil, Absolute 2.7 10 3/mcL Normal 2.3-8.1 [facility] ([place] Comment on above: Performed By: #### A 1C, CMP, GFR, FE, ANEU, CBC, ADIFF ####[place] [address] A1Con 12-15-2023 HbA1c (Bld) [Mass fraction] 5.1 % Normal 4.0-6.0 [facility] ([place] Comment on above: Performed By: #### A 1C, CMP, GFR, FE, ANEU, CBC, ADIFF ####[place] [address] CBCon 12-15-2023 Erythrocyte distribution width (RBC) [Ratio] 13.3 % Normal 11.5-15.5 [facility] ([place] Comment on above: Performed By: #### A 1C, CMP, GFR, FE, ANEU, CBC, ADIFF #### [place] [address] Hematocrit (Bld) [Volume fraction] 34.8 % Low 40.0-52.0 [facility] ([place] Comment on above: Performed By: #### A 1C, CMP, GFR, FE, ANEU, CBC, ADIFF #### [place] [id number] Hgb 11.7 G/dL Low 13.0-17.5 [facility] ([place] Comment on above: Performed By: #### A 1C, CMP, GFR, FE, ANEU, CBC, ADIFF #### [place] [address] MCH (RBC) [Entitic mass] 34.7 pg High 27.0-33.0 [facility] ([place] Comment on above: Performed By: #### A 1C, CMP, GFR, FE, ANEU, CBC, ADIFF #### [place] [address] MCHC 33.7 G/dL Normal 32.0-36.0 [facility] ([place] Comment on above: Performed By: #### A 1C, CMP, GFR, FE, ANEU, CBC, ADIFF #### [place] [address] MCV (RBC) [Entitic vol] 102.9 fL High 81.0-100.0 [facility] ([place] Comment on above: Performed By: #### A 1C, CMP, GFR, FE, ANEU, CBC, ADIFF #### [place] [address] Platelet 180 10 3/mcL Normal 150-450 [facility] ([place] Comment on above: Performed By: #### A 1C, CMP, GFR, FE, ANEU, CBC, ADIFF #### [place] [address] Platelet mean volume (Bld) [Entitic vol] 8.4 fL Normal 6.4-10.5 [facility] ([place] Comment on above: Performed By: #### A 1C, CMP, GFR, FE, ANEU, CBC, ADIFF #### [address] [address] RBC 3.39 10 6/mcL Low 4.50-6.00 [facility] ([place] Comment on above: Performed By: #### A 1C, CMP, GFR, FE, ANEU, CBC, ADIFF #### [address] [address] WBC 5.2 10 3/mcL Normal 4.5-10.8 [facility] ([place] Comment on above: Performed By: #### A 1C, CMP, GFR, FE, ANEU, CBC, ADIFF #### [address] [address] CMPon 12-15-2023 Albumin Level 3.5 G/dL Normal 3.2-4.8 [facility] ([place] Comment on above: Performed By: #### A 1C, CMP, GFR, FE, ANEU, CBC, ADIFF ####[place] [address] Albumin/Globulin [Mass ratio] 1.3 {ratio} Normal 0.9-1.6 [facility] ([place] Comment on above: Performed By: #### A 1C, CMP, GFR, FE, ANEU, CBC, ADIFF ####[place] [address] ALP [Catalytic activity/Vol] 33 U/L Low 38-126 [facility] ([place] Comment on above: Performed By: #### A 1C, CMP, GFR, FE, ANEU, CBC, ADIFF ####[address] [address] ALT [Catalytic activity/Vol] 16 U/L Normal 12-55 [facility] ([place] Comment on above: Performed By: #### A 1C, CMP, GFR, FE, ANEU, CBC, ADIFF ####[place] [id number] AST [Catalytic activity/Vol] 35 U/L High 8-34 [facility] ([place] Comment on above: Performed By: #### A 1C, CMP, GFR, FE, ANEU, CBC, ADIFF ####[address] [address] Bili Total 0.70 mg/dL Normal 0.20-1.20 [facility] ([place] Comment on above: Result Comment: Use of this assay is not recommended for patients undergoing treatment with eltrombopag due to the potential for falsely elevated results. Performed By: #### A 1C, CMP, GFR, FE, ANEU, CBC, ADIFF ####[place] [id number] BUN/Creatinine Ratio 17.2 ratio Normal 10.0-22.0 [facility] ([place]) Comment on above: Performed By: #### A 1C, CMP, GFR, FE, ANEU, CBC, ADIFF ####[place] [id number] Calcium [Mass/Vol] 8.9 mg/dL Normal 8.7-10.4 [facility] ([place] Comment on above: Performed By: #### A 1C, CMP, GFR, FE, ANEU, CBC, ADIFF ####[place] [id number] Chloride [Moles/Vol] 110 mmol/L Normal 98-110 [facility] ([place] Comment on above: Performed By: #### A 1C, CMP, GFR, FE, ANEU, CBC, ADIFF ####[place] [id number] CO2 [Moles/Vol] 23 mmol/L Normal 22-32 [facility] ([place] Comment on above: Performed By: #### A 1C, CMP, GFR, FE, ANEU, CBC, ADIFF ####[address] [address] Creatinine [Mass/Vol] 0.87 mg/dL Normal 0.60-1.40 [facility] ([place] Comment on above: Performed By: #### A 1C, CMP, GFR, FE, ANEU, CBC, ADIFF ####[address] [address] Electrolyte Balance 9.0 mEq/L Normal 4.0-15.0 [facility] ([place] Comment on above: Performed By: #### A 1C, CMP, GFR, FE, ANEU, CBC, ADIFF ####[address] [address] Globulin 2.7 G/dL Normal 1.5-3.8 [facility] ([place] Comment on above: Performed By: #### A 1C, CMP, GFR, FE, ANEU, CBC, ADIFF ####[address] [address] Glucose [Mass/Vol] 76 mg/dL Low 82-115 [facility] ([place] Comment on above: Performed By: #### A 1C, CMP, GFR, FE, ANEU, CBC, ADIFF ####[address] [address] Potassium [Moles/Vol] 4.2 mmol/L Normal 3.5-5.0 [facility] ([place] Comment on above: Performed By: #### A 1C, CMP, GFR, FE, ANEU, CBC, ADIFF ####[place] [id number] Sodium [Moles/Vol] 142 mmol/L Normal 136-145 [facility] ([place] Comment on above: Performed By: #### A 1C, CMP, GFR, FE, ANEU, CBC, ADIFF ####[place] [address] Total Protein 6.2 G/dL Normal 5.7-8.2 [facility] ([place] Comment on above: Result Comment: No te - New Reference Range in effect 20 Performed By: #### A 1C, CMP, GFR, FE, ANEU, CBC, ADIFF ####[address] [address] Urea nitrogen [Mass/Vol] 15.0 mg/dL Normal 8.0-22.0 [facility] ([place] Comment on above: Performed By: #### A 1C, CMP, GFR, FE, ANEU, CBC, ADIFF ####[address] [address] FEon 12-15-2023 Iron [Mass/Vol] 106 ug/dL Normal 65-175 [facility] ([place] Comment on above: Performed By: #### A 1C, CMP, GFR, FE, ANEU, CBC, ADIFF ####[place] [id number] [place], [place] [id number] HAND COMP MIN 3 VWS LTon HAND COMP MIN 3 VWS LT HAND COMP MIN 3 V WS LT Ordering Physician: Brooke Patel MD 10/23/2021 1:29 PM LEFT HAND 3 VIEWS: Clinical Statement: Pain, injury. Comparison: None. FINDINGS: 3 views of the left hand were obtained. There is a transverse fracture at the junction of the proximal shaft and base of the second proximal phalanx with associated soft tissue swelling. The distal fragment is displaced ulnarly approximately 4 mm with radial angulation of the distal fragment. No other fracture identified. The index and third fingers are flexed at the PIP joints resulting in osseous superimposition on the PA and oblique views, limiting detail. There are degenerative changes with joint space narrowing and subarticular sclerosis at the first, second and third MCP joints and interphalangeal joint of the thumb. No dislocation. IMPRESSION: Displaced and angulated fracture at the base of the proximal phalanx of the left index finger as described. This report was electronically signed by Khalida Fajardo MD 10/23/2021 1:49 PM Reported By: KHALIDA FAJARDO M.D. Signed By: KHALIDA FAJARDO M.D. [facility] 10-23-2021 [facility] REPORT [facility] [place], [place] DATE OF SERVICE: 10/23/2021 REASON OF VISIT: Left hand injury. 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 He has a lot of scratches on the hand and pain and swelling of the left index. He cannot move his left index finger and also the thumb. No other injury. REVIEW OF OTHER SYSTEMS: Normal. ALLERGIES: PENICILLIN. MEDICATIONS: 1. Atenolol. 2. Lisinopril. 3. Amlodipine. 4. Aspirin. PHYSICAL EXAMINATION: On exam, he is awake, alert, not in distress, no dyspnea. Temperature 99.0, blood pressure 134/70, respirations 20, pulse 69, pulse oximetry 97% on room air. Pain score 5/10. HEENT: Unremarkable. Chest: Clear to auscultate. Heart: Regular rate and rhythm. Exam of the left hand reveals [facility] PATIENT NAME: PAYTON KNIGHT [address] [place] MEDICAL REC #: [id number] [place] [address] [facility] REPORT [facility]ARE PHYSICIAN significant swelling and flexion deformity of the left hand index. The knuckle of the index is quite swollen and slightly ecchymotic. He has multiple superficial abrasions on the knuckles of all of the fingers, but no deep cut of the skin. Motion of fingers is limited due to pain and swelling. Neurovascular status was normal. The rest of the exam was normal. X-ray of the left hand shows angulated fracture of the proximal phalanx of the left index. No other bone or joint injury was seen. ASSESSMENT: 1. Fracture proximal phalanx left index. 2. Multiple abrasions. 3. Contusion left hand. PLAN: Clinical findings were discussed with the patient and his in detail. I immobilized his hand with a short OCL splint. I also gave him an arm sling. I advised him to rest, elevate and ice. Patient did not want any strong pain medications, so he will take ibuprofen as needed. I gave him Bactrim DS one tablet twice a day for 7 days, with no refills. Dressing of the skin abrasion was done. I explained to him that he needs to see an orthopedist as soon as possible for further evaluation and treatment of the fracture of the index finger. His [facility] PATIENT NAME: PAYTON KNIGHT [address] [place] MEDICAL REC #: [id number] [place] [address] [facility] REPORT [facility]CARE PHYSICIAN stated she will call [facility] as soon as possible and get further treated. Patient and his understood and agreed. Their questions were answered to their satisfaction. Tetanus vaccination was up to date. Brooke Patel MD [id number] [facility] File#: [id number] END OF DOCUMENT / CHANGE LOG FOLLOWS Last Edited By Elec. Signed By Brooke Patel MD #PAWPR Brooke Patel MD #PAWPR on 10/30/2021 12:30 ET on 10/30/2021 12:30 ET Revision Number - 2 Verified/Reviewed by 10/30/21 1230 [facility] PATIENT NAME: PAYTON KNIGHT [address] MEDICAL REC #: [id number] [place] [address] [facility] REPORT [facility] PHYSICIAN Normal [facility] Encounters Encounter Date Encounter Type Care Provider Facility Start: 04-17-2025 End: 04-17-[address] Jamie Stephens DO Work Phone: [facility] Start: 04-17-2025 End: 04-17-[address] 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 Facility:A Start: 09-21-2024 End: 09-25-2024 ambulatory MARIE STEPHENS DO Facility:A Start: 08-27-2024 End: 08-27-2024 Emergency department patient visit MARIE STEPHENS DO Facility:A Start: 08-25-2024 ambulatory MARIE STEPHENS DO Fa cility:A Start: 08-22-2024 End: 08-22-2024 ambulatory MARIE STEPHENS DO Facility:A Start: 08-18-2024 End: 08-19-2024 Emergency department patient visit MARIE STEPHENS DO Facility:A Start: 08-14-2024 End: 08-14-2024 Emergency department patient visit MARIE STEPHENS DO Facility:A Start: 04-05-2024 End: 04-05-2024 ambulatory MARIE STEPHENS DO Facility:A Start: 12-15-2023 End: 12-15-2023 ambulatory MARIE STEPHENS DO Facility:A Start: 08-31-2023 End: 08-31-2023 ambulatory BRIONNA MORRISSEY PA-C Facility:A Start: 06-22-2023 End: 06-26-2023 ambulatory CHELORIANNA ELIZALDE KEYBOARD OPERATOR-WHEEL INSTALLER Facility:A Start: 06-22-2023 End: 06-22-2023 ambulatory CHELORIANNA THORPEROY KEYBOARD OPERATOR-WHEEL INSTALLER Facility:A Start: 06-11-2023 End: 06-15-2023 ambulatory VICKY COLEMAN PA-C Facility:A Start: 06-11-2023 End: 06-11-2023 ambulatory VICKY WEEKS PA-C Facility:A Start: 10-23-2021 Patient encounter procedure Brooke Patel MD Work Phone: [facility] Start: 10-23-2021 Progress Note Brooke Patel MD Work Phone: [facility] Start: 10-23-2021 End: 10-23-2021 Subsequent hospital visit by physician Brooke Patel Work Phone: [facility] Comment on above: LAC ON LEFT HAND Procedures Date Procedure Procedure Detail Performing Clinician Start: 04-17-[address] Errol Stephens DO Work Phone: Comment on above: Performed at: [address] Director: Heath Bell PhD, Phone: [phone] Start: 04-17-2025 Hep[address] C antibody measurement Dr. 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 Follow CDC recommendations for supplemental testing.Non-Reactive: Antibodies to HCV were not detected; does not exclude the possibility of exposure to HCVReactive Results are presumptive evidence of antibodies to HCV. Follow CDC recommendations for supplemental testing.Order confirmation testing: HCV Quant by PCR testing - HCVPCR #[id number] Non Reactive: < 0.8 Equivocal: >/= 0.8 to < 1.0 Reactive: >/= 1.0The CDC requires that a reactive/equivocal HCV antibody result be sent out for confirmation. HCV Quant by PCR testing. Plan of Treatment Date Care Activity Detail Author Start: 04-17-2025 In-vitro immunologic test [facility] Cyclic citrullinated peptide IgG Ab [Units/volume] in Serum or Plasma [facility] Mycobacterium tuberc ulosis tuberculin stimulated gamma interferon [Presence[facility] Payers Date Payer Category Payer Self-pay 2018 Private Health Insurance [id number] 2018 Medicare [id number] 1940 Unknown [id number] 2.16.8 [id number] 1942 Unknown [id number] 2.16.8 [id number] 1942 Unknown [id number] 2.16.8 [id number] 1942 Unknown [id number] 2.16.8 [id number] 1942 Unknown [id number] 2.16.8 40.1.658634.3.579.2.627 1942 Unknown [id number] 2.16.8 40.1.319217.3.579.2.627 1942 Unknown [id number] 2.16.8 40.1.488943.3.579.2.627 1942 Unknown [id number] 2.16.8 40.1.175932.3.579.2.627 1942 Unknown [id number] 2.16.8 40.1.451465.3.579.2.627 1942 Unknown [id number] 2.16.8 40.1.948442.3.579.2.627 1942 Unknown [id number] 2.16.8 40.1.752615.3.579.2.627 1942 Unknown [id number] 2.16.8 40.1.770448.3.579.2.627 1942 Unknown [id number] 2.16.8 40.1.753671.3.579.2.627 1942 Unknown [id number] 2.16.8 40.1.621517.3.579.2.627 1942 Unknown [id number] 2.16.8 40.1.076782.3.579.2.627 Unknown [id number] 2.16.8 [id number] Social History Date Type Detail Facility Tobacco smoking status GAIS Tobacco smoking consumption unknown [facility] Start: 1940 [facility]igned At [facility] Start: 1940 Sex Assigned At Male [facility] Clinical Note 09-23-2024 Note Date & Type Note Facility 09-23-2024 Note . MICRO - Microbiology PROCEDURE: Urine Culture [*1] SOURCE: Urine, Clean Catch BODY SITE: COLLECTED DATE/TIME: 09/21/2024 12:00 EST RECEIVED DATE/TIME: 09/21/2024 21:40 EST START DATE/TIME: 09/21/2024 21:40 EST FREE TEXT SOURCE: FINAL REPORTS Final Report [] Verified Date/Time/Personnel: 09/23/2024 07:48 EST No growth at 48 hours. PRELIMINARY REPORTS Preliminary Report [] Verified Date/Time/Personnel: 09/22/2024 11:01 EST No growth to date Performing Locations *1: This test was performed at: [address], [address] [place] [address] Clinical Note 06-24-2023 Note Date & Type Note Facility 06-24-2023 Note . MICRO - Microbiology PROCEDURE: Culture Beta Strep Only [*1] SOURCE: Throat BODY SITE: Throat COLLECTED DATE/TIME: 06/22/2023 10:31 EDT RECEIVED DATE/TIME: 06/22/2023 18:01 EDT START DATE/TIME: 06/22/2023 18:01 EDT FREE TEXT SOURCE: FINAL REPORTS Final Report [] Verified Date/Time/Personnel: 06/24/2023 07:16 EDT No Beta Strep isolated at 48hrs. PRELIMINARY REPORTS Preliminary Report [] Verified Date/Time/Personnel: 06/23/2023 10:31 EDT No beta Strep isolated at 24 hours. Performing Locations *1: This test was performed at: [address], [address] [place] [address] ([place] Clinical Note 06-13-2023 Note Date & Type Note Facility 06-13-2023 Note . MICRO - Microbiology PROCEDURE: Culture Beta Strep Only [*1] SOURCE: Throat BODY SITE: Throat COLLECTED DATE/TIME: 06/11/2023 10:09 EDT RECEIVED DATE/TIME: 06/11/2023 18:56 EDT START DATE/TIME: 06/11/2023 18:56 EDT FREE TEXT SOURCE: FINAL REPORTS Final Report [] Verified Date/Time/Personnel: 06/13/2023 07:13 EDT No Beta Strep isolated at 48hrs. PRELIMINARY REPORTS Preliminary Report [] Verified Date/Time/Personnel: 06/12/2023 13:47 EDT No beta Strep isolated at 24 hours. Performing Locations *1: This test was performed at: [facility], [address] [place] [address], [facility] , [facility] ([place]) History of Present illness Narrative 10-23-2021 Brooke Patel MD - 10/23/2021 2:22 PM EST Note Date & Type Note Facility 10-23-2021 History of Present illness Narrative DATE OF SERVICE: 10/23/2021 REASON OF VISIT: Left hand injury. 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 He has a lot of scratches on the hand and pain and swelling of the left index. He cannot move his left index finger and also the thumb. No other injury. REVIEW OF OTHER SYSTEMS: Normal. ALLERGIES: PENICILLIN. MEDICATIONS: 1. Atenolol. 2. Lisinopril. 3. Amlodipine. 4. Aspirin. PHYSICAL EXAMINATION: On exam, he is awake, alert, not in distress, no dyspnea. Temperature 99.0, blood pressure 134/70, respirations 20, pulse 69, pulse oximetry 97% on room air. Pain score 5/10. HEENT: Unremarkable. Chest: Clear to auscultate. Heart: Regular rate and rhythm. Exam of the left hand reveals significant swelling and flexion deformity of the left hand index. The knuckle of the index is quite swollen and slightly ecchymotic. He has multiple superficial abrasions on the knuckles of all of the fingers, but no deep cut of the skin. Motion of fingers is limited due to pain and swelling. Neurovascular status was normal. The rest of the exam was normal. X-ray of the left hand shows angulated fracture of the proximal phalanx of the left index. No other bone or joint injury was seen. ASSESSMENT: 1. Fracture proximal phalanx left index. 2. Multiple abrasions. 3. Contusion left hand. PLAN: Clinical findings were discussed with the patient and his in detail. I immobilized his hand with a short OCL splint. I also gave him an arm sling. I advised him to rest, elevate and ice. Patient did not want any strong pain medications, so he will take ibuprofen as needed. I gave him Bactrim DS one tablet twice a day for 7 days, with no refills. Dressing of the skin abrasion was done. I explained to him that he needs to see an orthopedist as soon as possible for further evaluation and treatment of the fracture of the index finger. His stated she will call [facility] as soon as possible and get further treated. Patient and his understood and agreed. Their questions were answered to their satisfaction. Tetanus vaccination was up to date. Brooke Patel MD [id number] [facility] File#: [id number] END OF DOCUMENT / CHANGE LOG FOLLOWS Last Edited By Elec. Signed By Brooke Patel MD #PAWPR Brooke Patel MD #PAWPR on 10/30/2021 12:30 ET on 10/30/2021 12:30 ET Revision Number - 2 ^^^ Verified/Reviewed by 10/30/21 1230 [facility] PATIENT NAME: PAYTON KNIGHT [address] [place] MEDICAL REC #: [id number] [place] [address] [facility] REPORT [facility] PHYSICIAN documented in this encounter [facility] Evaluation note Note Date & Type Note Facility Evaluation note No assessment information availa ble [facility] Work Phone: Reason for referral (narrative) Note Date & Type Note Facility Reason for referral (narrative) No reason for referral information available [facility] Work Phone: Summary Purpose Family History No Family History Records FoundNo Family History Records FoundNo Family History Records FoundNo Family History Records FoundNo Family History Records Found Advance Directives No Advanced Directives Records FoundNo Advanced Directives Records FoundNo Advanced Directives Records FoundNo Advanced Directives Records FoundNo Advanced Directives Records Found Chief Complaint and Reason for Visit Chief Complaint Admit Date PAIN- COPY PCP April 17, 2025 10:14 am Additional Source Comments Source Comments (unrecognize d section and content) In the event this informatio n is protected by the Federal Confidentiality of Alcohol and Drug Abuse Patient Records regulations: The Federal rules restrict any use of the information to criminally investigate or prosecute any alcohol or drug abuse patient.[facility] the event this information is protected by the Federal Confidentiality of Alcohol and Drug Abuse Patient Records regulations: The Federal rules restrict any use of the information to criminally investigate or prosecute any alcohol or drug abuse patient.[facility] (unrecognized sect ion and content) No Status Records FoundNo Status Records FoundNo Status Records FoundNo Status Records FoundNo Status Records Found INFORMATION SOURCE (unrecogn ized section and content) DATE CREATED AUTHOR 12/05/2021 [facility] nter [place] DATE CREATED AUTHOR AUTHOR'S ORGANIZ ATION 04/06/2024 [facility] ([place]) DATE CREATED AUTHOR AUTHOR'S ORGANIZ ATION 10/04/2024 [facility] DATE CREATED AUTHOR AUTHOR'S ORGANIZ ATION 12/26/2024 [facility] N DATE CREATED AUTHOR AUTHOR'S ORGANIZ ATION 04/30/2025 [facility] Care Teams (unrecognized sec tion and content) Team Status: Active Member Role/Relationship Status Dates Dr. Jamie Stephens DO Primary Care Provider Active Team Status: Inactive Member Role/Relationship Status Dates Dr. Jamie Stephens DO Primary Care Provider Active Start: April 17, 2025 End: April 17, 2025 Dr. Lucita Tom MD Attending Provider Active Start: April 17, 2025 End: April 17, 2025 Dr. Lucita Tom MD Referring Provider Active Start: April 17, 2025 End: April 17, 2025 Goals (unrecognized section and content) Goals may be documented in a n alternate section FOR RECORDS PERTAINING TO PATIENTS WHO ARE OR HAVE BEEN ENROLLED IN A CHEMICAL DEPENDENCY/SUBSTANCEABUSE PROGRAM, SOME INFORMATION MAY BE OMITTED. This clinical summary was aggregated from multiple sources. Caution should be exercised in using it in the provision of clinical care. This summary normalizes information from multiple sources, and as a consequence, information in this document may materially change the coding, format and clinical context of patient data. In addition, data may be omitted in some cases. CLINICAL DECISIONS SHOULD BE BASED ON THE PRIMARY CLINICAL RECORDS. [employer] [facility]. provides no warranty or guarantee of the accuracy or completeness of information in this document.
--- OUTSIDE RECORDS SUMMARY | 2025-05-03 19:03 | XMS RPT_ITS | CCD ---
Author Organization [facility] Inform ion Partnership [facility] Care Team Providers Care Orthodontic Technician Assistant Name Role Phone Unavailable Primary Care Provider Unavailabl e ANGELO DO, MARIE Attending Unavailabl e ANGELO DO, CHRISTOPHER Primary Care Unavailabl e JARED TALLEY, VICKY Attending Unavailable ANGELO DO, VERSAILLES Primary Care Unavailabl e TONIOTarsha SOILMAN, CHELO Attending Unavaila ble [facility], [facility] Unavailabl e BRIONNA MORRISSEY PA-C Attending Unavail able ANGELO DO, VERSAILLES Primary Care Unavailabl e JARED TALLEY, VICKY Attending Unavailable ANGELO DO, VERSAILLES Primary Care Unavailabl e TONIO SOLIMAN, CHELO [...] DO, CHRISTOPHER Attending Unavailabl e ANGELO DO, [facility] Primary Care Unavailabl e MAGALY SOLIMAN, VIC [...] CCP IgG Ab. 6 units Normal 0-19 [facility] Comment on above: Result Comment: Nega tive <20 Weak positive 20 - 39 Moderate positive 40 - 59 Strong positive >59 Performed at: [facility] [address] [id number] [employer] Cheniller: Heath Bell PhD, Phone: [phone] Performed By: #### L 501.1400, L101.9900, L3890.6301, L501.6710, L4600.0100, L3890.6102, L505.7010, L3400.8000, L3100.5475, L3890.6202, L500.4050, L100.0100 #### [facility] [address] [place], [address] Quantiferon TB-Gold+on 04-19 QFT MITOGEN URSZULA > 10.00 Normal . [facility] Comment on above: Performed By: #### L 501.1400, L101.9900, L3890.6301, L501.6710, L4600.0100, L3890.6102, L505.7010, L3400.8000, L3100.5475, L3890.6202, L500.4050, L100.0100 #### [facility] [address] [place], [address] QFT NIL VALUE 0.20 IU/mL Normal . [facility] Comment on above: Performed By: #### L 501.1400, L101.9900, L3890.6301, L501.6710, L4600.0100, L3890.6102, L505.7010, L3400.8000, L3100.5475, L3890.6202, L500.4050, L100.0100 #### [facility] [address] [place], [address] QFT TB GOLD+ Comment Normal . [facility] Comment on above: Result Comment: Juarez [...] L505.7010, L3400.8000, L3100.5475, L3890.6202, L500.4050, L100.0100 #### [facility] [address] [place], [address] QFT TB POS CRIT Negative Normal Negative [facility] Comment on above: Result Comment: No [...] interferon gamma. Chemiluminescence immunoassay methodology Performed at: [facility] [employer] [id number] [employer]iller: Heath Bell PhD, Phone: [phone] Performed By: #### L 501.1400, L101.9900, L3890.6301, L501.6710, L4600.0100, L3890.6102, L505.7010, L3400.8000, L3100.5475, L3890.6202, L500.4050, L100.0100 #### [facility] [address] [place], [address] QFT TB1+ AG URSZULA 0.28 IU/mL Normal . [facility] Comment on above: Performed By: #### L 501.1400, L101.9900, L3890.6301, L501.6710, L4600.0100, L3890.6102, L505.7010, L3400.8000, L3100.5475, L3890.6202, L500.4050, L100.0100 #### [facility] [address] [place], [address] QFT TB2+ AG URSZULA 0.25 IU/mL Normal . [facility] Comment on above: Performed By: #### L 501.1400, L101.9900, L3890.6301, L501.6710, L4600.0100, L3890.6102, L505.7010, L3400.8000, L3100.5475, L3890.6202, L500.4050, L100.0100 #### [facility] [address], [address] ANTINUCLEAR ANTIBODIES DIREC Ton 04-18-2025 ZAY,DIRECT Negative Normal Negative [facility] Comment on above: Result Comment: Perf ormed at: [facility] [id number] [employer] Cheniller: Heath Bell PhD, Phone: [phone] Performed By: #### L 501.1400, L101.9900, L3890.6301, L501.6710, L4600.0100, L3890.6102, L505.7010, L3400.8000, L3100.5475, L3890.6202, L500.4050, L100.0100 #### [facility] [address] [place], [place], [id number] Absolute lymphocyte countOrd ered By: [facility] Berrien Negro on 04-17-2025 Lymphocytes Auto (Unsp spec) [#/Vol] 1.03 10*3/uL 0.83-4.51 [facility] Absolute neutrophil countOrd ered By: [facility] 04-17-2025 Neutrophils (Bld) [#/Vol] 2.2 10*3/uL 2.0-7.7 [facility] Anion gap in Serum or Plasma Ordered By: Lucitaraul Tom on 04-17-2025 Anion gap [Moles/Vol] 14 mmol/L 5-15 [facility] Automated lymphocyte count a s percentage of total leukocytesOrdered By: [facility] Negro on 04-17-2025 Lymphocytes/100 WBC Auto (Unsp spec) 24.2 % 19-41 [facility] BUN/creatinine ratioOrdered By: [facility] on 04-17-2025 Urea nitrogen/Creatinine [Mass ratio] 16.3 mg/mg 10-20 [facility] Basophil percentageOrdered B y: Lucita Tom on 04-17-2025 Basophils/100 WBC (Bld) 0.7 % 0-1 [facility] Bilirubin, totalOrdered By: [facility] on 04-17-2025 Bilirubin [Mass/Vol] 0.53 mg/dL 0.00-1.30 [facility] CBC W/Diff, Automatedon Absolute Lymph 1.03 X10 3/uL Normal 0.83-4.51 [facility] Comment on above: Performed By: #### L 501.1400, L101.9900, L3890.6301, L501.6710, L4600.0100, L3890.6102, L505.7010, L3400.8000, L3100.5475, L3890.6202, L500.4050, L100.0100 #### [facility] [address] [place], [address] Absolute Neut 2.2 X10 3/uL Normal 2.0-7.7 [facility] Comment on above: Performed By: #### L 501.1400, L101.9900, L3890.6301, L501.6710, L4600.0100, L3890.6102, L505.7010, L3400.8000, L3100.5475, L3890.6202, L500.4050, L100.0100 #### [facility] [address] [place], [place], [phone] (391) Basophils/100 WBC (Bld) 0.7 % Normal 0-1 [facility] Comment on above: Performed By: #### L 501.1400, L101.9900, L3890.6301, L501.6710, L4600.0100, L3890.6102, L505.7010, L3400.8000, L3100.5475, L3890.6202, L500.4050, L100.0100 #### [facility] [address] [place], [place], [phone] ([phone] Eosinophils/100 WBC (Bld) 8.7 % High 0-5 [facility] Comment on above: Performed By: #### L 501.1400, L101.9900, L3890.6301, L501.6710, L4600.0100, L3890.6102, L505.7010, L3400.8000, L3100.5475, L3890.6202, L500.4050, L100.0100 #### [facility] [address] [place], [place], [phone] (728) Erythrocyte distribution width (RBC) [Ratio] 12.3 % Normal 11.6-14.6 [facility] Comment on above: Performed By: #### L 501.1400, L101.9900, L3890.6301, L501.6710, L4600.0100, L3890.6102, L505.7010, L3400.8000, L3100.5475, L3890.6202, L500.4050, L100.0100 #### [facility] [address] [place], [address] Hematocrit (Bld) [Volume fraction] 37.8 % Low 40-54 [facility] Comment on above: Performed By: #### L 501.1400, L101.9900, L3890.6301, L501.6710, L4600.0100, L3890.6102, L505.7010, L3400.8000, L3100.5475, L3890.6202, L500.4050, L100.0100 #### [facility] [address] [place], [place], [phone] (595) Hemoglobin (Bld) [Mass/Vol] 12.8 g/dL Low 13.0-16.5 [facility] Comment on above: Performed By: #### L 501.1400, L101.9900, L3890.6301, L501.6710, L4600.0100, L3890.6102, L505.7010, L3400.8000, L3100.5475, L3890.6202, L500.4050, L100.0100 #### [facility] [address] [place], [address] IG% 0.500 Normal 0.0-0.9 [facility] Comment on above: Result Comment: IG% - Immature Granulocytes (promyelocytes, myelocytes and metamyelocytes) > 1% indicates that a LEFT SHIFT is Present. Performed By: #### L 501.1400, L101.9900, L3890.6301, L501.6710, L4600.0100, L3890.6102, L505.7010, L3400.8000, L3100.5475, L3890.6202, L500.4050, L100.0100 #### [facility] [address] [place], [address] Lymphocytes/100 WBC (Bld) 24.2 % Normal 19-41 [facility] Comment on above: Performed By: #### L 501.1400, L101.9900, L3890.6301, L501.6710, L4600.0100, L3890.6102, L505.7010, L3400.8000, L3100.5475, L3890.6202, L500.4050, L100.0100 #### [facility] [address] [place], [address] MCH (RBC) [Entitic mass] 33.9 pg High 27.0-32.0 [facility] Comment on above: Performed By: #### L 501.1400, L101.9900, L3890.6301, L501.6710, L4600.0100, L3890.6102, L505.7010, L3400.8000, L3100.5475, L3890.6202, L500.4050, L100.0100 #### [facility] [address] [place], [address] MCHC (RBC) [Mass/Vol] 33.9 g/dL Normal 32-36 [facility] Comment on above: Performed By: #### L 501.1400, L101.9900, L3890.6301, L501.6710, L4600.0100, L3890.6102, L505.7010, L3400.8000, L3100.5475, L3890.6202, L500.4050, L100.0100 #### [facility] [address] [place], [address] MCV (RBC) [Entitic vol] 100.0 fL High 80-94 [facility] Comment on above: Performed By: #### L 501.1400, L101.9900, L3890.6301, L501.6710, L4600.0100, L3890.6102, L505.7010, L3400.8000, L3100.5475, L3890.6202, L500.4050, L100.0100 #### [facility] [address] [place], [address] Monocytes/100 WBC (Bld) 15.1 % High 0-10 [facility] Comment on above: Performed By: #### L 501.1400, L101.9900, L3890.6301, L501.6710, L4600.0100, L3890.6102, L505.7010, L3400.8000, L3100.5475, L3890.6202, L500.4050, L100.0100 #### [facility] [address] [place], [address] Neutrophils/100 WBC (Bld) 50.8 % Normal 47-70 [facility] Comment on above: Performed By: #### L 501.1400, L101.9900, L3890.6301, L501.6710, L4600.0100, L3890.6102, L505.7010, L3400.8000, L3100.5475, L3890.6202, L500.4050, L100.0100 #### [facility] [address] [place], [place], [phone] ([phone] Nucleated RBC (Bld) [#/Vol] 0 10*3/uL Normal 0-5 [facility] Comment on above: Performed By: #### L 501.1400, L101.9900, L3890.6301, L501.6710, L4600.0100, L3890.6102, L505.7010, L3400.8000, L3100.5475, L3890.6202, L500.4050, L100.0100 #### [facility] [address] [place], [address] Platelet mean volume (Bld) [Entitic vol] 9.8 fL Normal 6.2-12.0 [facility] Comment on above: Performed By: #### L 501.1400, L101.9900, L3890.6301, L501.6710, L4600.0100, L3890.6102, L505.7010, L3400.8000, L3100.5475, L3890.6202, L500.4050, L100.0100 #### [facility] [address] [place], [address] Platelets (Bld) [#/Vol] 199 10*3/uL Normal 150-450 [facility] Comment on above: Performed By: #### L 501.1400, L101.9900, L3890.6301, L501.6710, L4600.0100, L3890.6102, L505.7010, L3400.8000, L3100.5475, L3890.6202, L500.4050, L100.0100 #### [facility] [address] [place], [address] RBC (Bld) [#/Vol] 3.78 10*6/uL Low 4.6-6.[address] [facility] Comment on above: Performed By: #### L 501.1400, L101.9900, L3890.6301, L501.6710, L4600.0100, L3890.6102, L505.7010, L3400.8000, L3100.5475, L3890.6202, L500.4050, L100.0100 #### [facility] [address] [place], [address] RDW SD 45.7 fl High 35.1-43.9 [facility] Comment on above: Performed By: #### L 501.1400, L101.9900, L3890.6301, L501.6710, L4600.0100, L3890.6102, L505.7010, L3400.8000, L3100.5475, L3890.6202, L500.4050, L100.0100 #### [facility] [address] [place], [address] WBC (Bld) [#/Vol] 4.3 10*3/uL Low 4.4-11.0 [facility] Comment on above: Performed By: #### L 501.1400, L101.9900, L3890.6301, L501.6710, L4600.0100, L3890.6102, L505.7010, L3400.8000, L3100.5475, L3890.6202, L500.4050, L100.0100 #### [facility] [address] [facility] [place], [place], [phone] (522) CRPon 04-17-2025 C-REACTIVE PROT 5.51 mg/L High 0.0-3.0 [facility] Comment on above: Performed By: #### L 501.1400, L101.9900, L3890.6301, L501.6710, L4600.0100, L3890.6102, L505.7010, L3400.8000, L3100.5475, L3890.6202, L500.4050, L100.0100 #### [facility] [address] [place], [place], [id number] Carbon dioxide, total [Moles /volume] in Central venous bloodOrdered By: Lucita Tom on 04-17-2025 CO2 [Moles/Vol] 18.6 mmol/L Low 21.0-32.0 [facility] Chloride assayOrdered By: John Tom on 04-17-2025 Chloride [Moles/Vol] 104 mmol/L 98-108 [facility] Comprehensive Metabolic Prof ilon 04-17-2025 Albumin [Mass/Vol] 4.0 g/dL Normal 3.4-4.8 [facility] Comment on above: Performed By: #### L 501.1400, L101.9900, L3890.6301, L501.6710, L4600.0100, L3890.6102, L505.7010, L3400.8000, L3100.5475, L3890.6202, L500.4050, L100.0100 #### [facility] [address] [place], [place], [id number] Albumin/Globulin [Mass ratio] 1.4 {ratio} Normal 0.9-2.4 [facility] Comment on above: Performed By: #### L 501.1400, L101.9900, L3890.6301, L501.6710, L4600.0100, L3890.6102, L505.7010, L3400.8000, L3100.5475, L3890.6202, L500.4050, L100.0100 #### [facility] [address] [place], [place], [id number] ALK PHOS 35 U/L Low 40-129 [facility] Comment on above: Performed By: #### L 501.1400, L101.9900, L3890.6301, L501.6710, L4600.0100, L3890.6102, L505.7010, L3400.8000, L3100.5475, L3890.6202, L500.4050, L100.0100 #### [facility] [address] [place], [place], [id number] ALT [Catalytic activity/Vol] 15 U/L Normal <=46 [facility] Comment on above: Performed By: #### L 501.1400, L101.9900, L3890.6301, L501.6710, L4600.0100, L3890.6102, L505.7010, L3400.8000, L3100.5475, L3890.6202, L500.4050, L100.0100 #### [facility] [address] [place], [address] (991 AST [Catalytic activity/Vol] 31 U/L Normal <=37 [facility] Comment on above: Performed By: #### L 501.1400, L101.9900, L3890.6301, L501.6710, L4600.0100, L3890.6102, L505.7010, L3400.8000, L3100.5475, L3890.6202, L500.4050, L100.0100 #### [facility] [address] [place], [address] Bilirubin [Mass/Vol] 0.53 mg/dL Normal 0.00-1.30 [facility] Comment on above: Performed By: #### L 501.1400, L101.9900, L3890.6301, L501.6710, L4600.0100, L3890.6102, L505.7010, L3400.8000, L3100.5475, L3890.6202, L500.4050, L100.0100 #### [facility] [address] [place], [address] BUN/CRE 16.3 RATIO Normal 10-20 [facility] Comment on above: Performed By: #### L 501.1400, L101.9900, L3890.6301, L501.6710, L4600.0100, L3890.6102, L505.7010, L3400.8000, L3100.5475, L3890.6202, L500.4050, L100.0100 #### [facility] [address] [place], [address] Calcium [Mass/Vol] 9.3 mg/dL Normal 7.6-11.0 [facility] Comment on above: Performed By: #### L 501.1400, L101.9900, L3890.6301, L501.6710, L4600.0100, L3890.6102, L505.7010, L3400.8000, L3100.5475, L3890.6202, L500.4050, L100.0100 #### [facility] [address] [place], [address] Chloride [Moles/Vol] 104 mmol/L Normal 98-108 [facility] Comment on above: Performed By: #### L 501.1400, L101.9900, L3890.6301, L501.6710, L4600.0100, L3890.6102, L505.7010, L3400.8000, L3100.5475, L3890.6202, L500.4050, L100.0100 #### [facility] [address] [place], [address] CO2 [Moles/Vol] 18.6 mmol/L Low 21.0-32.0 [facility] Comment on above: Performed By: #### L 501.1400, L101.9900, L3890.6301, L501.6710, L4600.0100, L3890.6102, L505.7010, L3400.8000, L3100.5475, L3890.6202, L500.4050, L100.0100 #### [facility] [address] [place], [address] Creatinine [Mass/Vol] 0.91 mg/dL Normal 0.70-1.20 [facility] Comment on above: Performed By: #### L 501.1400, L101.9900, L3890.6301, L501.6710, L4600.0100, L3890.6102, L505.7010, L3400.8000, L3100.5475, L3890.6202, L500.4050, L100.0100 #### [facility] [address] [place], [address] GAP 14 Normal 5-15 [facility] Comment on above: Performed By: #### L 501.1400, L101.9900, L3890.6301, L501.6710, L4600.0100, L3890.6102, L505.7010, L3400.8000, L3100.5475, L3890.6202, L500.4050, L100.0100 #### [facility] [address] [place], [address] GFR/1.73 sq M.predicted among non-blacks MDRD (S/P/Bld) [Vol rate/Area] 85 mL/min/{1.73_m2} Normal >60 [facility] Comment on above: Result Comment: mL/m in/1.73m2 CKD-EPI Creatinine Equation (2020) Performed By: #### L 501.1400, L101.9900, L3890.6301, L501.6710, L4600.0100, L3890.6102, L505.7010, L3400.8000, L3100.5475, L3890.6202, L500.4050, L100.0100 #### [facility] [address] [place], [address] Globulin (S) [Mass/Vol] 2.8 g/dL Normal 2.2-4.2 [facility] Comment on above: Performed By: #### L 501.1400, L101.9900, L3890.6301, L501.6710, L4600.0100, L3890.6102, L505.7010, L3400.8000, L3100.5475, L3890.6202, L500.4050, L100.0100 #### [facility] [address] [place], [address] Glucose [Mass/Vol] 82 mg/dL Normal 70-99 [facility] Comment on above: Performed By: #### L 501.1400, L101.9900, L3890.6301, L501.6710, L4600.0100, L3890.6102, L505.7010, L3400.8000, L3100.5475, L3890.6202, L500.4050, L100.0100 #### [facility] [address] [place], [address] Potassium [Moles/Vol] 5.0 mmol/L Normal 3.3-5.1 [facility] Comment on above: Performed By: #### L 501.1400, L101.9900, L3890.6301, L501.6710, L4600.0100, L3890.6102, L505.7010, L3400.8000, L3100.5475, L3890.6202, L500.4050, L100.0100 #### [facility] [address] [place], [address] Sodium [Moles/Vol] 136 mmol/L Normal 133-145 [facility] Comment on above: Performed By: #### L 501.1400, L101.9900, L3890.6301, L501.6710, L4600.0100, L3890.6102, L505.7010, L3400.8000, L3100.5475, L3890.6202, L500.4050, L100.0100 #### [facility] [address] [place], [address] T PROT 6.8 g/dL Normal 5.9-8.4 [facility] Comment on above: Performed By: #### L 501.1400, L101.9900, L3890.6301, L501.6710, L4600.0100, L3890.6102, L505.7010, L3400.8000, L3100.5475, L3890.6202, L500.4050, L100.0100 #### [facility] [address] [place], [address] Urea nitrogen [Mass/Vol] 15 mg/dL Normal 4-19 [facility] Comment on above: Performed By: #### L 501.1400, L101.9900, L3890.6301, L501.6710, L4600.0100, L3890.6102, L505.7010, L3400.8000, L3100.5475, L3890.6202, L500.4050, L100.0100 #### [facility] [address] [place], [place], [id number] Eosinophil percentageOrdered By: Lucita Tom on 04-17-2025 Eosinophils/100 WBC (Bld) 8.7 % High 0-5 [facility] Erythrocyte Sed Rateon 04-17 SED RATE 10 mm/hr Normal 0-20 [facility] Comment on above: Performed By: #### L 501.1400, L101.9900, L3890.6301, L501.6710, L4600.0100, L3890.6102, L505.7010, L3400.8000, L3100.5475, L3890.6202, L500.4050, L100.0100 #### [facility] [address] [place], [place], [id number] Erythrocyte distribution wid th ratioOrdered By: Lucita Tom on 04-17-2025 Erythrocyte distribution width (RBC) [Ratio] 12.3 % 11.6-14.6 [facility] Erythrocyte distribution wid th standard deviationOrdered By: Lucitaraul Tom on 04-17-2025 Erythrocyte distribution width (RBC) [Ratio] 45.7 fl High 35.1-43.9 [facility] Erythrocyte sedimentation ra teOrdered By: Lucita Tom on 04-17-2025 ESR (Bld) [Velocity] 10 mm/h 0-20 [facility] Glomerular filtration rate ( GFR) estimation/1.73 sq m using serum, plasma, or whole bOrdered By: Lucita Tom on 04-17-2025 GFR/1.73 sq M.predicted among non-blacks MDRD (S/P/Bld) [Vol rate/Area] 85 mL/min/{1.73_m2} >60 [facility] Comment on above: mL/min/1.73m2 CKD-EP I Creatinine Equation (2021) Hematocrit Auto (Bld) [Volum e fraction]Ordered By: Lucita Tom on 04-17-2025 Hematocrit (Bld) [Volume fraction] 37.8 % Low 40-54 [facility] Hemoglobin measurementOrdere d By: Lucita Tom on 04-17-2025 Hemoglobin (Bld) [Mass/Vol] 12.8 g/dL Low 13.0-16.5 [facility] Hepatitis B Surface Antibody on 04-17-2025 HEP B Surf Ab Non-Reactive Normal [facility] Comment on above: Result Comment: <8.5 mIU/mL: Non-Reactive 8.5<= x <11.5 mIU/mL: Indeterminate >=11.5 mIU/mL: Reactive Non Reactive: Inconsistent with immunity less than <10 mIU/mL Reactive: Consistent with immunity greater than or equal to 10 mIU/mL Performed By: #### L 501.1400, L101.9900, L3890.6301, L501.6710, L4600.0100, L3890.6102, L505.7010, L3400.8000, L3100.5475, L3890.6202, L500.4050, L100.0100 #### [facility] [address] [place], [place], [address] Hepatitis C Antibodyon 04-17 Hepatitis C Ab Non-Reactive Normal Nonreactive [facility] Comment on above: Result Comment: Reac tive: Presumptive evidence of antibodies to HCV. Follow CDC recommendations for supplemental testing. Non-Reactive: Antibodies to HCV were not detected; does not exclude the possibility of exposure to HCV Reactive Results are presumptive evidence of antibodies to HCV. Follow CDC recommendations for supplemental testing. Order confirmation testing: HCV Quant by PCR testing - HCVPCR #[id number] Non Reactive: < 0.8 Equivocal: >/= 0.8 to < 1.0 Reactive: >/= 1.0 The CDC requires that a reactive/equivocal HCV antibody result be sent out for confirmation. HCV Quant by PCR testing. Performed By: #### L 501.1400, L101.9900, L3890.6301, L501.6710, L4600.0100, L3890.6102, L505.7010, L3400.8000, L3100.5475, L3890.6202, L500.4050, L100.0100 #### [facility] [address] [place], [place], [id number] Immature granulocytes/100 WB C Auto (Bld)Ordered By: Lucita Tom on 04-17-2025 Immature granulocytes/100 WBC (Bld) 0.500 % 0.0-0.9 [facility] Comment on above: IG% - Immature Granu locytes (promyelocytes, myelocytes and metamyelocytes) > 1% indicates that a LEFT SHIFT is Present. L3890.6102on 04-17-2025 HEP B Surf Ag Non-Reactive Normal Nonreactive [facility] Comment on above: Result Comment: Reac tive: Presumptive evidence of HBV. Repeatedly reactive samples must be confirmed using a neutralization test ([employer] HBsAg Confirmatory Test) Non-Reactive: HBsAg not detected; does not exclude the possibility of exposure to HBV Performed By: #### L 501.1400, L101.9900, L3890.6301, L501.6710, L4600.0100, L3890.6102, L505.7010, L3400.8000, L3100.5475, L3890.6202, L500.4050, L100.0100 #### [facility] [address] [place], [address] Laboratory - Chemistry and C hemistry - challengeOrdered By: Lucita Tom on 04-17-2025 AST [Catalytic activity/Vol] 31 U/L <38 [facility] - Microbiology an d Antimicrobial susceptibilityOrdered By: Lucita Tom on 04-17-2025 HBV surface Ag Ql (S) Non-Reactive Nonreactive [facility] Comment on above: Reactive: Presumptiv e evidence of HBV. Repeatedly reactive samples must be confirmed using a neutralization test ([employer] HBsAg Confirmatory Test)Non-Reactive: HBsAg not detected; does not exclude the possibility of exposure to HBV MCV (mean corpuscular volume ) determinationOrdered By: Lucita Tom on 04-17-2025 MCV (RBC) [Entitic vol] 100.0 fL High 80-94 [facility] Mean corpuscular hemoglobin (MCH) determinationOrdered By: Lucita Tom on 04-17-2025 MCH (RBC) [Entitic mass] 33.9 pg High 27.0-32.0 [facility] Mean corpuscular hemoglobin concentration (MCHC) determinationOrdered By: Lucita Tom on 04-17-2025 MCHC (RBC) [Mass/Vol] 33.9 g/dL 32-36 [facility] Mean platelet volume determi nationOrdered By: Lucita Tom on 04-17-2025 Platelet mean volume (Bld) [Entitic vol] 9.8 fL 6.2-12.0 [facility] Monocyte percentageOrdered B y: Lucita Tom on 04-17-2025 Monocytes/100 WBC (Bld) 15.1 % High 0-10 [facility] Neutrophil percentageOrdered By: Lucita Tom on 04-17-2025 Neutrophils/100 WBC (Bld) 50.8 % 47-70 [facility] Nucleated red blood cell per centageOrdered By: Lucita Tom on 04-17-2025 Nucleated RBC/100 WBC (Bld) [Ratio] 0 % 0-5 [facility] Platelet countOrdered By: John Tom on 04-17-2025 Platelets (Bld) [#/Vol] 199 10*3/uL 150-450 [facility] Potassium measurement (mass/ volume)Ordered By: Lucita Tom on 04-17-2025 Potassium (Unsp spec) [Mass/Vol] 5.0 mmol/L 3.3-5.1 [facility] RBC Auto (Bld) [#/Vol]Ordere d By: Lucita Tom on 04-17-2025 RBC (Bld) [#/Vol] 3.78 10*6/uL Low 4.6-6.[address] [facility] Rheumatoid Factoron 04-17-20 25 RHEUMATOID FAC < 10.0 Normal <15 [facility] Comment on above: Performed By: #### L 501.1400, L101.9900, L3890.6301, L501.6710, L4600.0100, L3890.6102, L505.7010, L3400.8000, L3100.5475, L3890.6202, L500.4050, L100.0100 #### [facility] [place], [address] Serum creatinine measurement (mass/volume)Ordered By: Lucita Tom on 04-17-2025 Creatinine [Mass/Vol] 0.91 mg/dL 0.70-1.20 [facility] Serum globulin measurementOr dered By: Lucita Tom on 04-17-2025 Globulin (S) [Mass/Vol] 2.8 g/dL 2.2-4.2 [facility] Serum glucose measurement (m ass/volume)Ordered By: Lucita Tom on 04-17-2025 Glucose [Mass/Vol] 82 mg/dL 70-99 [facility] Serum hepatitis B virus surf lilia antibody detectionOrdered By: Lucita Tom on 04-17-2025 HBV surface Ab Ql (S) Non-Reactive [facility] Comment on above: <8.5 mIU/mL: Non-Cando ctive8.5<= x <11.5 mIU/mL: Indeterminate>=11.5 mIU/mL: Reactive Non Reactive: Inconsistent with immunity less than <10 mIU/mL Reactive: Consistent with immunity greater than or equal to 10 mIU/mL Serum or plasma C reactive p rotein measurement (mass/volume)Ordered By: Lucita Tom on 04-17-2025 CRP [Mass/Vol] 5.51 mg/L High 0.0-3.0 [facility] Serum or plasma alanine garcia otransferase (ALT) measurementOrdered By: Lucitaraul Tom on 04-17-2025 ALT [Catalytic activity/Vol] 15 U/L <47 [facility] Serum or plasma albumin katelyn urement (mass/volume)Ordered By: Lucita Tom on 04-17-2025 Albumin [Mass/Vol] 4.0 g/dL 3.4-4.8 [facility] Serum or plasma albumin/glob ulin mass ratioOrdered By: Lucita Tom 04-17-2025 Albumin/Globulin [Mass ratio] 1.4 {ratio} 0.9-2.4 [facility] Serum or plasma alkaline mary sphatase measurementOrdered By: Lucita Tom on 04-17-2025 ALP [Catalytic activity/Vol] 35 U/L Low 40-129 [facility] Serum or plasma calcium katelyn urement (mass/volume)Ordered By: Lucita Tom on 04-17-2025 Calcium [Mass/Vol] 9.3 mg/dL 7.6-11.0 [facility] Serum or plasma urea nitroge n measurement (mass/volume)Ordered By: Lucita Tom on 04-17-2025 Urea nitrogen [Mass/Vol] 15 mg/dL 4-19 [facility] Serum or plasma uric acid me asurement (mass/volume)Ordered By: Lucita Tom on 04-17-2025 Urate [Mass/Vol] 7.7 mg/dL High 3.5-7.2 [facility] Comment on above: The drugs N-Acetylcy steine and Metamizole may falsely depress this assay. Serum rheumatoid factor dete ctionOrdered By: Lucita Tom on 04-17-2025 Rheumatoid factor Ql (S) < 10.0 IU/mL <15 [facility] Sodium levelOrdered By: Tremaine Tom on 04-17-2025 Sodium [Moles/Vol] 136 mmol/L 133-145 [facility] Total proteinOrdered By: Beba Tom on 04-17-2025 Protein [Mass/Vol] 6.8 g/dL 5.9-8.4 [facility] Uric Acidon 04-17-2025 URIC 7.7 mg/dL High 3.5-7.2 [facility] Comment on above: Result Comment: The drugs N-Acetylcysteine and Metamizole may falsely depress this assay. Performed By: #### L 501.1400, L101.9900, L3890.6301, L501.6710, L4600.0100, L3890.6102, L505.7010, L3400.8000, L3100.5475, L3890.6202, L500.4050, L100.0100 #### [facility] [address] [place], [address] White blood cell (WBC) count Ordered By: Lucita Tom on 04-17-2025 WBC (Bld) [#/Vol] 4.3 10*3/uL Low 4.4-11.0 [facility] .Auto Diffon 12-25-2024 Basophil, Absolute 0.0 10 3/mcL Normal 0.0-0.3 [facility] Comment on above: Performed By: #### M DW, CMP, MG, ANEU, GFR, MORPH, ADIFF, CBC #### [facility] [place] [address] [place], [place] [address] Basophils/100 WBC (Bld) 1.0 % Normal 0.0-2.5 [facility] Comment on above: Performed By: #### M DW, CMP, MG, ANEU, GFR, MORPH, ADIFF, CBC #### [facility] [place] [address] [place], [place] [address] Eosinophil, Absolute 0.3 10 3/mcL Normal 0.0-0.7 [facility] Comment on above: Performed By: #### M DW, CMP, MG, ANEU, GFR, MORPH, ADIFF, CBC #### [facility] [place] [address] [place], [place] [address] Eosinophils/100 WBC (Bld) 7.2 % High 0.0-6.0 [facility] Comment on above: Performed By: #### M DW, CMP, MG, ANEU, GFR, MORPH, ADIFF, CBC #### [facility] [place] [address] [place], [place] [address] Lymphocyte, Absolute 1.4 10 3/mcL Normal 0.9-4.3 [facility] Comment on above: Performed By: #### M DW, CMP, MG, ANEU, GFR, MORPH, ADIFF, CBC #### [facility] [place] [address] [place], [place] [address] Lymphocytes/100 WBC (Bld) 32.6 % Normal 20.0-40.0 [facility] Comment on above: Performed By: #### M DW, CMP, MG, ANEU, GFR, MORPH, ADIFF, CBC #### [facility] [place] [address] [place], [place] [address] Monocyte, Absolute 0.5 10 3/mcL Normal 0.1-1.4 [facility] Comment on above: Performed By: #### M DW, CMP, MG, ANEU, GFR, MORPH, ADIFF, CBC #### [facility] [address] [place], [place] [address] Monocytes/100 WBC (Bld) 12.1 % Normal 2.0-13.0 [facility] Comment on above: Performed By: #### M DW, CMP, MG, ANEU, GFR, MORPH, ADIFF, CBC #### [facility] [place] [address] [place], [place] [address] Neutrophils/100 WBC (Bld) 47.1 % Low 50.0-75.0 [facility] Comment on above: Performed By: #### M DW, CMP, MG, ANEU, GFR, MORPH, ADIFF, CBC #### [facility] [address] [place], [place] [address] .GFRon 12-25-2024 Estimated Glomerular Filtration Rate 64 ml/min/1.73sqm Normal [facility] Comment on above: Result Comment: Stages of [...] ANEU, GFR, MORPH, ADIFF, CBC #### [facility] [place] [address] [place], [place] [address] .NEUABSon 12-25-2024 Neutrophil, Absolute 2.0 10 3/mcL Low 2.3-8.1 [facility] Comment on above: Performed By: #### M DW, CMP, MG, ANEU, GFR, MORPH, ADIFF, CBC #### [facility] [place] [address] [place], [place] [address] CBCon 12-25-2024 Erythrocyte distribution width (RBC) [Ratio] 13.0 % Normal 11.5-15.5 [facility] Comment on above: Performed By: #### C MP, CBC, ANEU, ADIFF, URIC, GFR #### [facility] [address] [place] [id number] Hematocrit (Bld) [Volume fraction] 38.3 % Low 40.0-52.0 [facility] Comment on above: Performed By: #### C MP, CBC, ANEU, ADIFF, URIC, GFR #### [facility] [address] [place] [id number] Hgb 12.7 G/dL Low 13.0-17.5 [facility] Comment on above: Performed By: #### C MP, CBC, ANEU, ADIFF, URIC, GFR #### [facility] [place] [address] [place], [place] [address] MCH (RBC) [Entitic mass] 33.7 pg High 27.0-33.0 [facility] Comment on above: Performed By: #### C MP, CBC, ANEU, ADIFF, URIC, GFR #### [facility] [address] [place] [id number] MCHC 33.1 G/dL Normal 32.0-36.0 [facility] Comment on above: Performed By: #### C MP, CBC, ANEU, ADIFF, URIC, GFR #### [facility] [address] [place] [phone] MCV (RBC) [Entitic vol] 101.8 fL High 81.0-100.0 [facility] Comment on above: Performed By: #### C MP, CBC, ANEU, ADIFF, URIC, GFR #### [facility] [address] [place] [phone] Platelet 207 10 3/mcL Normal 150-450 [facility] Comment on above: Performed By: #### C MP, CBC, ANEU, ADIFF, URIC, GFR #### [facility] [place] [address] [place], [place] [address] Platelet mean volume (Bld) [Entitic vol] 7.8 fL Normal 6.4-10.5 [facility] Comment on above: Performed By: #### C MP, CBC, ANEU, ADIFF, URIC, GFR #### [facility] [place] [address] [place] [phone] RBC 3.76 10 6/mcL Low 4.50-6.00 [facility] Comment on above: Performed By: #### C MP, CBC, ANEU, ADIFF, URIC, GFR #### [facility] [place] [address] [place] [phone] WBC 4.2 10 3/mcL Low 4.5-10.8 [facility] [place] Comment on above: Performed By: #### C MP, CBC, ANEU, ADIFF, URIC, GFR #### [place] [address] [place] [phone] CMPon 12-25-2024 Albumin Level 3.5 G/dL Normal 3.4-4.8 [facility] Comment on above: Performed By: #### M DW, CMP, MG, ANEU, GFR, MORPH, ADIFF, CBC #### [facility] [place] [address] [place] [phone] Albumin/Globulin [Mass ratio] 1.0 {ratio} Low 1.1-2.5 [facility] Comment on above: Performed By: #### M DW, CMP, MG, ANEU, GFR, MORPH, ADIFF, CBC #### [place] [address] [place] [phone] ALP [Catalytic activity/Vol] 34 U/L Low 40-135 [facility] [place] Comment on above: Performed By: #### M DW, CMP, MG, ANEU, GFR, MORPH, ADIFF, CBC #### [facility] [place] [address] [place], [place] [address] ALT [Catalytic activity/Vol] 15 U/L Low 16-63 [facility] Comment on above: Performed By: #### M DW, CMP, MG, ANEU, GFR, MORPH, ADIFF, CBC #### [facility] [address] [place], [place] [address] AST [Catalytic activity/Vol] 21 U/L Normal 10-40 [facility] [place] Comment on above: Performed By: #### M DW, CMP, MG, ANEU, GFR, MORPH, ADIFF, CBC #### [facility] [address] [place], [place] [address] Bili Total 0.4 mg/dL Normal 0.2-1.0 [facility] Comment on above: Result Comment: Use of this assay is not recommended for patients undergoing treatment with eltrombopag due to the potential for falsely elevated results. Performed By: #### M DW, CMP, MG, ANEU, GFR, MORPH, ADIFF, CBC #### [facility] [address] [place], [place] [address] BUN/Creatinine Ratio 18 ratio Normal 7-27 [facility] Comment on above: Performed By: #### M DW, CMP, MG, ANEU, GFR, MORPH, ADIFF, CBC #### [facility] [address] [place], [place] [address] Calcium [Mass/Vol] 9.2 mg/dL Normal 8.4-10.2 [facility] [place] Comment on above: Performed By: #### M DW, CMP, MG, ANEU, GFR, MORPH, ADIFF, CBC #### [facility] [address] [place], [place] [address] Chloride [Moles/Vol] 107 mmol/L Normal 98-107 [facility] Comment on above: Performed By: #### M DW, CMP, MG, ANEU, GFR, MORPH, ADIFF, CBC #### [facility] [address] [place], [place] [address] CO2 [Moles/Vol] 24 mmol/L Normal 23-31 [facility] Comment on above: Performed By: #### M DW, CMP, MG, ANEU, GFR, MORPH, ADIFF, CBC #### [facility] [place] [address] [place], [place] [address] Creatinine [Mass/Vol] 1.14 mg/dL Normal 0.70-1.30 [facility] Comment on above: Result Comment: Test ing performed on Siem[employer] Dimension EXL analyzer using a modified kinetic Fred technique. Performed By: #### M DW, CMP, MG, ANEU, GFR, MORPH, ADIFF, CBC #### [facility] [place] [address] [place], [place] [address] Electrolyte Balance 11.0 mEq/L Normal 4.0-15.0 [facility] Comment on above: Performed By: #### M DW, CMP, MG, ANEU, GFR, MORPH, ADIFF, CBC #### [facility] [place] [address] [place], [place] [address] Globulin 3.6 G/dL Normal 1.5-3.8 [facility] Comment on above: Performed By: #### M DW, CMP, MG, ANEU, GFR, MORPH, ADIFF, CBC #### [place] [place] [address] [place], [place] [address] Glucose [Mass/Vol] 78 mg/dL Low 83-110 [facility] Comment on above: Performed By: #### M DW, CMP, MG, ANEU, GFR, MORPH, ADIFF, CBC #### [facility] [address] [place], [place] [address] Potassium [Moles/Vol] 4.7 mmol/L Normal 3.5-5.1 [facility] Comment on above: Performed By: #### M DW, CMP, MG, ANEU, GFR, MORPH, ADIFF, CBC #### [facility] [address] [place], [place] [address] Sodium [Moles/Vol] 142 mmol/L Normal 136-145 [facility] Comment on above: Performed By: #### M DW, CMP, MG, ANEU, GFR, MORPH, ADIFF, CBC #### [place] [place] [address] [place], [place] [address] Total Protein 7.1 G/dL Normal 6.4-8.2 [facility] Comment on above: Performed By: #### M DW, CMP, MG, ANEU, GFR, MORPH, ADIFF, CBC #### [place] [place] [address] [place], [place] [address] Urea nitrogen [Mass/Vol] 20 mg/dL High 7-18 [facility] Comment on above: Performed By: #### M DW, CMP, MG, ANEU, GFR, MORPH, ADIFF, CBC #### [place] [address] [place], [place] [address] URICon 12-25-2024 Uric Acid Lvl 8.4 mg/dL High 3.5-7.2 [facility] Comment on above: Performed By: #### M DW, CMP, MG, ANEU, GFR, MORPH, ADIFF, CBC #### [facility] [address] [place], [place] [address] XR ANKLE AND FOOT 6 VIEWS LE [...] ANEU, GFR, MORPH, ADIFF, CBC #### [facility] [place] [address] [place], [place] [address] Basophils/100 WBC (Bld) 0.8 % Normal 0.0-2.5 [facility] Comment on above: Performed By: #### M DW, CMP, MG, ANEU, GFR, MORPH, ADIFF, CBC #### [facility] [place] [address] [place], [place] [address] Eosinophil, Absolute 0.1 10 3/mcL Normal 0.0-0.7 [facility] Comment on above: Performed By: #### M DW, CMP, MG, ANEU, GFR, MORPH, ADIFF, CBC #### [facility] [place] [address] [place], [place] [address] Eosinophils/100 WBC (Bld) 1.9 % Normal 0.0-6.0 [facility] Comment on above: Performed By: #### M DW, CMP, MG, ANEU, GFR, MORPH, ADIFF, CBC #### [facility] [place] [address] [place], [place] [address] Lymphocyte, Absolute 0.4 10 3/mcL Low 0.9-4.3 [facility] Comment on above: Performed By: #### M DW, CMP, MG, ANEU, GFR, MORPH, ADIFF, CBC #### [facility] [place] [address] [place], [place] [address] Lymphocytes/100 WBC (Bld) 7.4 % Low 20.0-40.0 [facility] Comment on above: Performed By: #### M DW, CMP, MG, ANEU, GFR, MORPH, ADIFF, CBC #### [facility] [place] [address] [place], [place] [address] Monocyte, Absolute 0.6 10 3/mcL Normal 0.1-1.4 [facility] Comment on above: Performed By: #### M DW, CMP, MG, ANEU, GFR, MORPH, ADIFF, CBC #### [place] [place] [address] [place], [place] [address] Monocytes/100 WBC (Bld) 9.9 % Normal 2.0-13.0 [facility] Comment on above: Performed By: #### M DW, CMP, MG, ANEU, GFR, MORPH, ADIFF, CBC #### [facility] [place] [address] [place], [place] [address] Neutrophils/100 WBC (Bld) 80.0 % High 50.0-75.0 [facility] Comment on above: Performed By: #### M DW, CMP, MG, ANEU, GFR, MORPH, ADIFF, CBC #### [facility] [place] [address] [place], [place] [address] .GFRon 08-22-2024 GFR >60 Normal [facility] Comment on above: Result Comment: GFR [...] MG, ANEU, GFR, MORPH, ADIFF, CBC #### [facility] [address] [place], [place] [address] GFR Non- 59 ml/min/1.73sqm Normal [facility] Comment on above: Result Comment: GFR Population [...] ANEU, GFR, MORPH, ADIFF, CBC #### [facility] [place] [address] [place] [address] .NEUABSon 08-22-2024 Neutrophil, Absolute 4.8 10 3/mcL Normal 2.3-8.1 [facility] Comment on above: Performed By: #### M DW, CMP, MG, ANEU, GFR, MORPH, ADIFF, CBC #### [place] [place] [address] [place] [address] CBCon 08-22-2024 Erythrocyte distribution width (RBC) [Ratio] 13.1 % Normal 11.5-15.5 [facility] Comment on above: Performed By: #### M DW, CMP, MG, ANEU, GFR, MORPH, ADIFF, CBC #### [facility] [address] [place] [address] Hematocrit (Bld) [Volume fraction] 33.5 % Low 40.0-52.0 [facility] Comment on above: Performed By: #### M DW, CMP, MG, ANEU, GFR, MORPH, ADIFF, CBC #### [facility] [place] [address] [place] [phone] Hgb 11.4 G/dL Low 13.0-17.5 [facility] Comment on above: Performed By: #### M DW, CMP, MG, ANEU, GFR, MORPH, ADIFF, CBC #### [place] [address] [place] [address] MCH (RBC) [Entitic mass] 34.8 pg High 27.0-33.0 [facility] Comment on above: Performed By: #### M DW, CMP, MG, ANEU, GFR, MORPH, ADIFF, CBC #### [place] [place] [address] [place] [address] MCHC 34.1 G/dL Normal 32.0-36.0 [facility] Comment on above: Performed By: #### M DW, CMP, MG, ANEU, GFR, MORPH, ADIFF, CBC #### [facility] [place] [address] [place], [place] [address] MCV (RBC) [Entitic vol] 102.2 fL High 81.0-100.0 [facility] Comment on above: Performed By: #### M DW, CMP, MG, ANEU, GFR, MORPH, ADIFF, CBC #### [facility] [place] [address] [place], [place] [address] Platelet 350 10 3/mcL Normal 150-450 [facility] Comment on above: Performed By: #### M DW, CMP, MG, ANEU, GFR, MORPH, ADIFF, CBC #### [facility] [place] [address] [place], [place] [address] Platelet mean volume (Bld) [Entitic vol] 8.4 fL Normal 6.4-10.5 [facility] Comment on above: Performed By: #### M DW, CMP, MG, ANEU, GFR, MORPH, ADIFF, CBC #### [facility] [place] [address] [place], [place] [address] RBC 3.28 10 6/mcL Low 4.50-6.00 [facility] Comment on above: Performed By: #### M DW, CMP, MG, ANEU, GFR, MORPH, ADIFF, CBC #### [facility] [place] [address] [place], [place] [address] WBC 6.0 10 3/mcL Normal 4.5-10.8 [facility] Comment on above: Performed By: #### M DW, CMP, MG, ANEU, GFR, MORPH, ADIFF, CBC #### [facility] [address] [place], [place] [address] CMPon 08-22-2024 Albumin Level 2.6 G/dL Low 3.2-4.8 [facility] Comment on above: Performed By: #### M DW, CMP, MG, ANEU, GFR, MORPH, ADIFF, CBC #### [facility] [place] [address] [place], [place] [address] Albumin/Globulin [Mass ratio] 0.7 {ratio} Low 0.9-1.6 [facility] Comment on above: Performed By: #### M DW, CMP, MG, ANEU, GFR, MORPH, ADIFF, CBC #### [facility] [address] [place], [place] [address] ALP [Catalytic activity/Vol] 49 U/L Normal 38-126 [facility] Comment on above: Performed By: #### M DW, CMP, MG, ANEU, GFR, MORPH, ADIFF, CBC #### [facility] [address] [place] [phone] ALT [Catalytic activity/Vol] 47 U/L Normal 12-55 [facility] Comment on above: Performed By: #### M DW, CMP, MG, ANEU, GFR, MORPH, ADIFF, CBC #### [facility] [address] [place] [phone] AST [Catalytic activity/Vol] 39 U/L High 8-34 [facility] Comment on above: Performed By: #### M DW, CMP, MG, ANEU, GFR, MORPH, ADIFF, CBC #### [facility] [address] [place] [phone] Bili Total 0.70 mg/dL Normal 0.20-1.20 [facility] Comment on above: Result Comment: Use of this assay is not recommended for patients undergoing treatment with eltrombopag due to the potential for falsely elevated results. Performed By: #### M DW, CMP, MG, ANEU, GFR, MORPH, ADIFF, CBC #### [facility] [address] [place] [phone] BUN/Creatinine Ratio 29.4 ratio High 10.0-22.0 [facility] Comment on above: Performed By: #### M DW, CMP, MG, ANEU, GFR, MORPH, ADIFF, CBC #### [facility] [address] [place] [phone] Calcium [Mass/Vol] 8.9 mg/dL Normal 8.7-10.4 [facility] Comment on above: Performed By: #### M DW, CMP, MG, ANEU, GFR, MORPH, ADIFF, CBC #### [facility] [place] [address] [place], [place] [address] Chloride [Moles/Vol] 103 mmol/L Normal 98-110 [facility] Comment on above: Performed By: #### M DW, CMP, MG, ANEU, GFR, MORPH, ADIFF, CBC #### [facility] [place] [address] [place], [place] [address] CO2 [Moles/Vol] 23 mmol/L Normal 22-32 [facility] Comment on above: Performed By: #### M DW, CMP, MG, ANEU, GFR, MORPH, ADIFF, CBC #### [facility] [place] [address] [place], [place] [address] Creatinine [Mass/Vol] 1.19 mg/dL Normal 0.60-1.40 [facility] Comment on above: Result Comment: Test ing performed on [employer] analyzer using enzymatic creatinine methodology. Performed By: #### M DW, CMP, MG, ANEU, GFR, MORPH, ADIFF, CBC #### [facility] [place] [address] [place], [place] [address] Electrolyte Balance 11.0 mEq/L Normal 4.0-15.0 [facility] Comment on above: Performed By: #### M DW, CMP, MG, ANEU, GFR, MORPH, ADIFF, CBC #### [facility] [place] [address] [place], [place] [address] Globulin 3.5 G/dL Normal 1.5-3.8 [facility] Comment on above: Performed By: #### M DW, CMP, MG, ANEU, GFR, MORPH, ADIFF, CBC #### [facility] [place] [address] [place], [place] [address] Glucose [Mass/Vol] 128 mg/dL High 82-115 [facility] Comment on above: Performed By: #### M DW, CMP, MG, ANEU, GFR, MORPH, ADIFF, CBC #### [facility] [place] [address] [place], [place] [address] Potassium [Moles/Vol] 4.3 mmol/L Normal 3.5-5.0 [facility] Comment on above: Performed By: #### M DW, CMP, MG, ANEU, GFR, MORPH, ADIFF, CBC #### [place] [place] [address] [place], [place] [address] Sodium [Moles/Vol] 137 mmol/L Normal 136-145 [facility] [place] Comment on above: Performed By: #### M DW, CMP, MG, ANEU, GFR, MORPH, ADIFF, CBC #### [facility] [address] [place], [place] [address] Total Protein 6.1 G/dL Normal 5.7-8.2 [facility] Comment on above: Performed By: #### M DW, CMP, MG, ANEU, GFR, MORPH, ADIFF, CBC #### [facility] [address] [place], [place] [address] Urea nitrogen [Mass/Vol] 35.0 mg/dL High 8.0-22.0 [facility] Comment on above: Performed By: #### M DW, CMP, MG, ANEU, GFR, MORPH, ADIFF, CBC #### [place] [place] [address] [place], [place] [address] MGon 08-22-2024 Magnesium [Mass/Vol] 1.3 mg/dL Low 1.6-2.4 [facility] Comment on above: Performed By: #### M DW, CMP, MG, ANEU, GFR, MORPH, ADIFF, CBC #### [facility] [address] [place], [place] [address] CT ABD/PELVIS W/ IV CONTRAST ONLYon 08-19-2024 [...] 08/19/2024 12:27:50 AM Ordering Provider: JONNY Bill [facility] CT HEAD OR BRAIN W/O CONTRAS [...] 08-19-2024 FLU A PCR Negative Normal Negative [facility] Comment on above: Performed By: #### C VFLURV #### [place] [place] [address] [place] [address] FLU B PCR Negative Normal Negative [facility] Comment on above: Performed By: #### C VFLURV #### [facility] [address] [place] [address] RSV PCR Negative Normal [facility] Comment on above: Performed By: #### C VFLURV #### [facility] [address] [place] [address] SARS-CoV-2 (COVID-19) RNA LINDSAY+probe Ql (Unsp spec) [...] Performed By: #### C VFLURV #### [facility] [place] [address] [place], [place] [address] XR CHEST 2 VIEWSon 4 XR CHEST 2 VIEWS ORIGINAL EXAMINATION: TWO XRAY VIEWS OF THE CHEST 08/19/2024 12:20 am COMPARISON: [employer] view from CT chest March 18, 2023 [...] ANEU, GFR, MORPH, ADIFF, CBC #### [facility] [place] [address] [place], [place] [address] Basophils/100 WBC (Bld) 0.5 % Normal 0.0-2.5 [facility] Comment on above: Performed By: #### M DW, CMP, MG, ANEU, GFR, MORPH, ADIFF, CBC #### [facility] [place] [address] [place], [place] [address] Eosinophil, Absolute 0.2 10 3/mcL Normal 0.0-0.7 [facility] Comment on above: Performed By: #### M DW, CMP, MG, ANEU, GFR, MORPH, ADIFF, CBC #### [facility] [place] [address] [place], [place] [address] Eosinophils/100 WBC (Bld) 4.0 % Normal 0.0-6.0 [facility] Comment on above: Performed By: #### M DW, CMP, MG, ANEU, GFR, MORPH, ADIFF, CBC #### [facility] [place] [address] [place], [place] [address] Lymphocyte, Absolute 0.6 10 3/mcL Low 0.9-4.3 [facility] Comment on above: Performed By: #### M DW, CMP, MG, ANEU, GFR, MORPH, ADIFF, CBC #### [facility] [place] [address] [place], [place] [address] Lymphocytes/100 WBC (Bld) 9.2 % Low 20.0-40.0 [facility]IE MASSILLON Comment on above: Performed By: #### M DW, CMP, MG, ANEU, GFR, MORPH, ADIFF, CBC #### [facility] [address] [place], [place] [address] Monocyte, Absolute 0.5 10 3/mcL Normal 0.1-1.4 MITCHEL MAN MASSILLON Comment on above: Performed By: #### M DW, CMP, MG, ANEU, GFR, MORPH, ADIFF, CBC #### [facility] [address] [place], [place] [address] Monocytes/100 WBC (Bld) 8.5 % Normal 2.0-13.0 [facility]IE MASSILLON Comment on above: Performed By: #### M DW, CMP, MG, ANEU, GFR, MORPH, ADIFF, CBC #### [facility] [address] [place], [place] [address] Neutrophils/100 WBC (Bld) 77.8 % High 50.0-75.0 ALLIE MASSILLON Comment on above: Performed By: #### M DW, CMP, MG, ANEU, GFR, MORPH, ADIFF, CBC #### [facility] [address] [place], [place] [address] .GFRon 08-18-2024 GFR 46 ml/min/1.73sqm Normal ALLIE [...] ANEU, GFR, MORPH, ADIFF, CBC #### [facility] [address] [place], [place] [address] GFR Non- 38 ml/min/1.73sqm Normal ALLIE MASSILLON [...] ANEU, GFR, MORPH, ADIFF, CBC #### [facility] [address] [place], [place] [address] .MDWon 08-18-2024 Monocyte Distribution Width 26.76 High 0.00-20.00 ALLIE MASSILLON Comment on above: Result Comment: For adults in ED, MDW>20.0 may be associated with a higher risk of sepsis during the first 12hrs of hospital admission Performed By: #### M DW, CMP, MG, ANEU, GFR, MORPH, ADIFF, CBC #### [facility] [address] [place] [id number] .Morphon 08-18-2024 Platelet Estimate Normal Normal [facility] [facility] Comment on above: Performed By: #### M DW, CMP, MG, ANEU, GFR, MORPH, ADIFF, CBC #### [place] [address] [place] [id number] .NEUABSon 08-18-2024 Neutrophil, Absolute 4.7 10 3/mcL Normal 2.3-8.1 [facility] Comment on above: Performed By: #### M DW, CMP, MG, ANEU, GFR, MORPH, ADIFF, CBC #### [place] [address] [place] [address] CBCon 08-18-2024 Erythrocyte distribution width (RBC) [Ratio] 13.1 % Normal 11.5-15.5 [facility] Comment on above: Performed By: #### M DW, CMP, MG, ANEU, GFR, MORPH, ADIFF, CBC #### [place] [address] [place] [phone] Hematocrit (Bld) [Volume fraction] 35.0 % Low 40.0-52.0 [facility] Comment on above: Performed By: #### M DW, CMP, MG, ANEU, GFR, MORPH, ADIFF, CBC #### [place] [address] [place] [id number] Hgb 11.8 G/dL Low 13.0-17.5 [facility] Comment on above: Performed By: #### M DW, CMP, MG, ANEU, GFR, MORPH, ADIFF, CBC #### [place] [address] [place] [phone] MCH (RBC) [Entitic mass] 33.8 pg High 27.0-33.0 [facility] Comment on above: Performed By: #### M DW, CMP, MG, ANEU, GFR, MORPH, ADIFF, CBC #### [facility]ie [place] [address] [place], [place] [address] MCHC 33.7 G/dL Normal 32.0-36.0 [facility] Comment on above: Performed By: #### M DW, CMP, MG, ANEU, GFR, MORPH, ADIFF, CBC #### Allie [address] [address] [place], [place] [address] MCV (RBC) [Entitic vol] 100.3 fL High 81.0-100.0 [facility] Comment on above: Performed By: #### M DW, CMP, MG, ANEU, GFR, MORPH, ADIFF, CBC #### [facility]ie [place] [address] [place], [place] [address] Platelet 187 10 3/mcL Normal 150-450 [facility] Comment on above: Performed By: #### M DW, CMP, MG, ANEU, GFR, MORPH, ADIFF, CBC #### [facility]ie [place] [address] [place], [place] [address] Platelet mean volume (Bld) [Entitic vol] 8.6 fL Normal 6.4-10.5 [facility] Comment on above: Performed By: #### M DW, CMP, MG, ANEU, GFR, MORPH, ADIFF, CBC #### [place]ie [place] [address] [place], [place] [address] RBC 3.49 10 6/mcL Low 4.50-6.00 [facility] Comment on above: Performed By: #### M DW, CMP, MG, ANEU, GFR, MORPH, ADIFF, CBC #### [place] [place] [address] [place], [place] [address] WBC 6.0 10 3/mcL Normal 4.5-10.8 [facility] Comment on above: Performed By: #### M DW, CMP, MG, ANEU, GFR, MORPH, ADIFF, CBC #### [place]ie [place] [address] [place], [place] [address] CMPon 08-18-2024 Albumin Level 2.5 G/dL Low 3.4-4.8 [facility] Comment on above: Performed By: #### M DW, CMP, MG, ANEU, GFR, MORPH, ADIFF, CBC #### [facility] [address] [place], [place] [address] Albumin/Globulin [Mass ratio] 0.7 {ratio} Low 1.1-2.5 [facility] Comment on above: Performed By: #### M DW, CMP, MG, ANEU, GFR, MORPH, ADIFF, CBC #### [facility] [address] [place], [place] [address] ALP [Catalytic activity/Vol] 43 U/L Normal 40-135 [facility] Comment on above: Performed By: #### M DW, CMP, MG, ANEU, GFR, MORPH, ADIFF, CBC #### [facility] [address] [place], [place] [address] ALT [Catalytic activity/Vol] 49 U/L Normal 16-63 [facility] Comment on above: Performed By: #### M DW, CMP, MG, ANEU, GFR, MORPH, ADIFF, CBC #### [facility] [address] [place], [place] [address] AST [Catalytic activity/Vol] 75 U/L High 10-40 [facility] Comment on above: Performed By: #### M DW, CMP, MG, ANEU, GFR, MORPH, ADIFF, CBC #### [facility] [address] [place], [place] [address] Bili Total 0.4 mg/dL Normal 0.2-1.0 [facility] Comment on above: Result Comment: Use of this assay is not recommended for patients undergoing treatment with eltrombopag due to the potential for falsely elevated results. Performed By: #### M DW, CMP, MG, ANEU, GFR, MORPH, ADIFF, CBC #### [place] [address] [place], [place] [address] BUN/Creatinine Ratio 36 ratio High 7-27 [facility] Comment on above: Performed By: #### M DW, CMP, MG, ANEU, GFR, MORPH, ADIFF, CBC #### [place] [address] [place], [place] [address] Calcium [Mass/Vol] 8.7 mg/dL Normal 8.4-10.2 [facility] Comment on above: Performed By: #### M DW, CMP, MG, ANEU, GFR, MORPH, ADIFF, CBC #### [place] [address] [place], [place] [address] Chloride [Moles/Vol] 93 mmol/L Low 98-107 [facility] Comment on above: Performed By: #### M DW, CMP, MG, ANEU, GFR, MORPH, ADIFF, CBC #### [place] [address] [place], [place] [address] CO2 [Moles/Vol] 22 mmol/L Low 23-31 [facility] Comment on above: Performed By: #### M DW, CMP, MG, ANEU, GFR, MORPH, ADIFF, CBC #### [place] [address] [place], [place] [address] Creatinine [Mass/Vol] 1.73 mg/dL High 0.70-1.30 [facility] Comment on above: Result Comment: Test ing performed on Siemens Dimension EXL analyzer using a modified kinetic Fred technique. Performed By: #### M DW, CMP, MG, ANEU, GFR, MORPH, ADIFF, CBC #### [place] [address] [place], [place] [address] Electrolyte Balance 15.0 mEq/L Normal 4.0-15.0 [facility] Comment on above: Performed By: #### M DW, CMP, MG, ANEU, GFR, MORPH, ADIFF, CBC #### [place] [address] [place], [place] [address] Globulin 3.7 G/dL Normal [facility] Comment on above: Performed By: #### M DW, CMP, MG, ANEU, GFR, MORPH, ADIFF, CBC #### [place] [address] [place], [place] [address] Glucose [Mass/Vol] 112 mg/dL High 83-110 [facility] Comment on above: Performed By: #### M DW, CMP, MG, ANEU, GFR, MORPH, ADIFF, CBC #### [place] [address] [place], [place] [address] Potassium [Moles/Vol] 3.1 mmol/L Low 3.5-5.1 [facility] Comment on above: Performed By: #### M DW, CMP, MG, ANEU, GFR, MORPH, ADIFF, CBC #### [place] [address] [place], [place] [address] Sodium [Moles/Vol] 130 mmol/L Low 136-145 [facility] Comment on above: Performed By: #### M DW, CMP, MG, ANEU, GFR, MORPH, ADIFF, CBC #### [facility] [place] [address] [place], [place] [address] Total Protein 6.2 G/dL Low 6.4-8.2 [facility] Comment on above: Performed By: #### M DW, CMP, MG, ANEU, GFR, MORPH, ADIFF, CBC #### [place]ie [place] [address] [place], [place] [address] Urea nitrogen [Mass/Vol] 63 mg/dL High 7-18 [facility] Comment on above: Performed By: #### M DW, CMP, MG, ANEU, GFR, MORPH, ADIFF, CBC #### [place] [address] [place], [place] [address] MGon 08-18-2024 Magnesium [Mass/Vol] 1.3 mg/dL Low 1.8-2.4 [facility] Comment on above: Performed By: #### M DW, CMP, MG, ANEU, GFR, MORPH, ADIFF, CBC #### [place] [address] [place], [place] [address] UAon 08-18-2024 Color (U) Yellow Normal [facility] Comment on above: Performed By: #### M DW, CMP, MG, ANEU, GFR, MORPH, ADIFF, CBC #### [place] [address] [place], [place] [address] Glucose (U) [Mass/Vol] Negative Normal Negative [facility] Comment on above: Performed By: #### M DW, CMP, MG, ANEU, GFR, MORPH, ADIFF, CBC #### [place] [address] [place], [place] [address] Ketones Ql (U) Negative Normal Neg-Trace [facility] Comment on above: Performed By: #### M DW, CMP, MG, ANEU, GFR, MORPH, ADIFF, CBC #### [place] [address] [place] [id number] UA Appear Clear Normal [facility] Comment on above: Performed By: #### M DW, CMP, MG, ANEU, GFR, MORPH, ADIFF, CBC #### [place] [address] [place] [id number] UA Blood Negative Normal Neg-Trace [facility] Comment on above: Performed By: #### M DW, CMP, MG, ANEU, GFR, MORPH, ADIFF, CBC #### [place] [address] [place] [phone] UA Leuk Est Negative Normal Negative [facility] Comment on above: Performed By: #### M DW, CMP, MG, ANEU, GFR, MORPH, ADIFF, CBC #### [place] [address] [place] [phone] UA Nitrite Negative Normal Negative [facility] Comment on above: Performed By: #### M DW, CMP, MG, ANEU, GFR, MORPH, ADIFF, CBC #### [place] [address] [place] [phone] UA pH 5.5 Normal 5.0 - 8.0 [facility] Comment on above: Performed By: #### M DW, CMP, MG, ANEU, GFR, MORPH, ADIFF, CBC #### [place] [address] [place] [phone] UA Protein 30 mg/dL Normal Negative [facility] Comment on above: Performed By: #### M DW, CMP, MG, ANEU, GFR, MORPH, ADIFF, CBC #### [place] [address] [place], [place] [address] UA Spec Grav 1.015 Normal [facility] Comment on above: Performed By: #### M DW, CMP, MG, ANEU, GFR, MORPH, ADIFF, CBC #### [facility]ie [place] [address] [place], [place] [address] UA Specimen Type Clean Catch Normal [facility] Comment on above: Performed By: #### M DW, CMP, MG, ANEU, GFR, MORPH, ADIFF, CBC #### [place] [address] [place] [phone] UA Urobilinogen 0.2 E.U./dL Normal [facility] Comment on above: Performed By: #### M DW, CMP, MG, ANEU, GFR, MORPH, ADIFF, CBC #### [place]ie [place] [address] [place], [place] [address] Urobilinogen (U) [Mass/Vol] Negative Normal Neg-Trace [facility] Comment on above: Performed By: #### M DW, CMP, MG, ANEU, GFR, MORPH, ADIFF, CBC #### [place] [address] [place], [place] [address] .Auto Diffon 08-14-2024 Basophil, Absolute 0.0 10 3/mcL Normal 0.0-0.3 [facility] Comment on above: Performed By: #### M DW, CMP, MG, ANEU, GFR, MORPH, ADIFF, CBC #### [place] [address] [place], [place] [address] Basophils/100 WBC (Bld) 0.7 % Normal 0.0-2.5 [facility] Comment on above: Performed By: #### M DW, CMP, MG, ANEU, GFR, MORPH, ADIFF, CBC #### [place] [address] [place], [place] [address] Eosinophil, Absolute 0.0 10 3/mcL Normal 0.0-0.7 [facility] Comment on above: Performed By: #### M DW, CMP, MG, ANEU, GFR, MORPH, ADIFF, CBC #### [place] [address] [place], [place] [address] Eosinophils/100 WBC (Bld) 0.3 % Normal 0.0-6.0 [facility] Comment on above: Performed By: #### M DW, CMP, MG, ANEU, GFR, MORPH, ADIFF, CBC #### [place] [address] [place], [place] [address] Lymphocyte, Absolute 0.4 10 3/mcL Low 0.9-4.3 [facility] Comment on above: Performed By: #### M DW, CMP, MG, ANEU, GFR, MORPH, ADIFF, CBC #### [facility] [place] [address] [place], [place] [address] Lymphocytes/100 WBC (Bld) 7.6 % Low 20.0-40.0 [facility] Comment on above: Performed By: #### M DW, CMP, MG, ANEU, GFR, MORPH, ADIFF, CBC #### [place] [address] [place], [place] [address] Monocyte, Absolute 0.6 10 3/mcL Normal 0.1-1.4 [facility] Comment on above: Performed By: #### M DW, CMP, MG, ANEU, GFR, MORPH, ADIFF, CBC #### [place] [place] [address] [place], [place] [address] Monocytes/100 WBC (Bld) 12.4 % Normal 2.0-13.0 [facility] Comment on above: Performed By: #### M DW, CMP, MG, ANEU, GFR, MORPH, ADIFF, CBC #### [place] [place] [address] [place], [place] [address] Neutrophils/100 WBC (Bld) 79.0 % High 50.0-75.0 [facility] Comment on above: Performed By: #### M DW, CMP, MG, ANEU, GFR, MORPH, ADIFF, CBC #### [facility]ie [place] [address] [place], [place] [address] .GFRon 08-14-2024 GFR 64 ml/min/1.73sqm Normal ALLIE [...] ANEU, GFR, MORPH, ADIFF, CBC #### [place] [place] [address] [place], [place] [address] GFR Non- 53 ml/min/1.73sqm Normal [facility] [...] ANEU, GFR, MORPH, ADIFF, CBC #### [place] [address] [place], [place] [address] .MDWon 08-14-2024 Monocyte Distribution Width 31.78 High 0.00-20.00 [facility] Comment on above: Result Comment: For adults in ED, MDW>20.0 may be associated with a higher risk of sepsis during the first 12hrs of hospital admission Performed By: #### M DW, CMP, MG, ANEU, GFR, MORPH, ADIFF, CBC #### [facility] [place] [address] [place], [place] [address] .NEUABSon 08-14-2024 Neutrophil, Absolute 3.9 10 3/mcL Normal 2.3-8.1 [facility] Comment on above: Performed By: #### M DW, CMP, MG, ANEU, GFR, MORPH, ADIFF, CBC #### [place] [address] [place] [phone] CBCon 08-14-2024 Erythrocyte distribution width (RBC) [Ratio] 13.1 % Normal 11.5-15.5 [facility] Comment on above: Performed By: #### M DW, CMP, MG, ANEU, GFR, MORPH, ADIFF, CBC #### [place] [address] [place] [phone] Hematocrit (Bld) [Volume fraction] 37.1 % Low 40.0-52.0 [facility] Comment on above: Performed By: #### M DW, CMP, MG, ANEU, GFR, MORPH, ADIFF, CBC #### [facility] [place] [address] [place] [phone] Hgb 12.3 G/dL Low 13.0-17.5 [facility] Comment on above: Performed By: #### M DW, CMP, MG, ANEU, GFR, MORPH, ADIFF, CBC #### [place] [address] [place] [phone] MCH (RBC) [Entitic mass] 34.2 pg High 27.0-33.0 [facility] Comment on above: Performed By: #### M DW, CMP, MG, ANEU, GFR, MORPH, ADIFF, CBC #### [place] [address] [place] [phone] MCHC 33.3 G/dL Normal 32.0-36.0 [facility] Comment on above: Performed By: #### M DW, CMP, MG, ANEU, GFR, MORPH, ADIFF, CBC #### [place] [address] [place] [phone] MCV (RBC) [Entitic vol] 102.9 fL High 81.0-100.0 [facility] Comment on above: Performed By: #### M DW, CMP, MG, ANEU, GFR, MORPH, ADIFF, CBC #### [place] [place] [address] [place], [place] [address] Platelet 175 10 3/mcL Normal 150-450 [facility] Comment on above: Performed By: #### M DW, CMP, MG, ANEU, GFR, MORPH, ADIFF, CBC #### [place] [address] [place], [place] [address] Platelet mean volume (Bld) [Entitic vol] 8.6 fL Normal 6.4-10.5 [facility] Comment on above: Performed By: #### M DW, CMP, MG, ANEU, GFR, MORPH, ADIFF, CBC #### Allie [place] [address] [place], [place] [address] RBC 3.61 10 6/mcL Low 4.50-6.00 [facility] Comment on above: Performed By: #### M DW, CMP, MG, ANEU, GFR, MORPH, ADIFF, CBC #### Allie [place] [address] [place], [place] [address] WBC 5.0 10 3/mcL Normal 4.5-10.8 [facility] Comment on above: Performed By: #### M DW, CMP, MG, ANEU, GFR, MORPH, ADIFF, CBC #### Allie [place] [address] [place], [place] [address] CMPon 08-14-2024 Albumin Level 3.4 G/dL Normal 3.4-4.8 [facility] Comment on above: Performed By: #### M DW, CMP, MG, ANEU, GFR, MORPH, ADIFF, CBC #### Allie [place] [address] [place], [place] [address] Albumin/Globulin [Mass ratio] 0.9 {ratio} Low 1.1-2.5 [facility] Comment on above: Performed By: #### M DW, CMP, MG, ANEU, GFR, MORPH, ADIFF, CBC #### [place] [address] [place], [place] [address] ALP [Catalytic activity/Vol] 38 U/L Low 40-135 [facility] Comment on above: Performed By: #### M DW, CMP, MG, ANEU, GFR, MORPH, ADIFF, CBC #### [facility] [place] [address] [place], [place] [address] ALT [Catalytic activity/Vol] 19 U/L Normal 16-63 [facility] Comment on above: Performed By: #### M DW, CMP, MG, ANEU, GFR, MORPH, ADIFF, CBC #### [place] [address] [place], [place] [address] AST [Catalytic activity/Vol] 35 U/L Normal 10-40 [facility] Comment on above: Performed By: #### M DW, CMP, MG, ANEU, GFR, MORPH, ADIFF, CBC #### [place] [address] [place], [place] [address] Bili Total 0.6 mg/dL Normal 0.2-1.0 [facility] Comment on above: Result Comment: Use of this assay is not recommended for patients undergoing treatment with eltrombopag due to the potential for falsely elevated results. Performed By: #### M DW, CMP, MG, ANEU, GFR, MORPH, ADIFF, CBC #### [place] [address] [place], [place] [address] BUN/Creatinine Ratio 16 ratio Normal 7-27 [facility] [place] Comment on above: Performed By: #### M DW, CMP, MG, ANEU, GFR, MORPH, ADIFF, CBC #### [facility] [address] [place], [place] [address] Calcium [Mass/Vol] 8.8 mg/dL Normal 8.4-10.2 [facility] Comment on above: Performed By: #### M DW, CMP, MG, ANEU, GFR, MORPH, ADIFF, CBC #### [facility] [address] [place], [place] [address] Chloride [Moles/Vol] 95 mmol/L Low 98-107 [facility] Comment on above: Performed By: #### M DW, CMP, MG, ANEU, GFR, MORPH, ADIFF, CBC #### [place] [address] [place], [place] [address] CO2 [Moles/Vol] 25 mmol/L Normal 23-31 [facility] Comment on above: Performed By: #### M DW, CMP, MG, ANEU, GFR, MORPH, ADIFF, CBC #### [facility] [address] [place], [place] [address] Creatinine [Mass/Vol] 1.30 mg/dL Normal 0.70-1.30 [facility] Comment on above: Result Comment: Test ing performed on Siemens Dimension EXL analyzer using a modified kinetic Fred technique. Performed By: #### M DW, CMP, MG, ANEU, GFR, MORPH, ADIFF, CBC #### [place] [address] [place], [place] [address] Electrolyte Balance 11.0 mEq/L Normal 4.0-15.0 [facility] Comment on above: Performed By: #### M DW, CMP, MG, ANEU, GFR, MORPH, ADIFF, CBC #### [facility] [address] [place], [place] [address] Globulin 3.6 G/dL Normal [facility] Comment on above: Performed By: #### M DW, CMP, MG, ANEU, GFR, MORPH, ADIFF, CBC #### [facility] [address] [place], [place] [address] Glucose [Mass/Vol] 140 mg/dL High 83-110 [facility] Comment on above: Performed By: #### M DW, CMP, MG, ANEU, GFR, MORPH, ADIFF, CBC #### [facility] [address] [place], [place] [address] Potassium [Moles/Vol] 5.0 mmol/L Normal 3.5-5.1 [facility] Comment on above: Performed By: #### M DW, CMP, MG, ANEU, GFR, MORPH, ADIFF, CBC #### [facility] [address] [place], [place] [address] Sodium [Moles/Vol] 131 mmol/L Low 136-145 [facility] Comment on above: Performed By: #### M DW, CMP, MG, ANEU, GFR, MORPH, ADIFF, CBC #### [facility] [address] [place], [place] [address] Total Protein 7.0 G/dL Normal 6.4-8.2 [facility] Comment on above: Performed By: #### M DW, CMP, MG, ANEU, GFR, MORPH, ADIFF, CBC #### [facility] [address] [place], [place] [address] Urea nitrogen [Mass/Vol] 21 mg/dL High 7-18 [facility] Comment on above: Performed By: #### M DW, CMP, MG, ANEU, GFR, MORPH, ADIFF, CBC #### [facility] [address] [place], [place] [address] LACon 08-14-2024 Lactic Acid Lvl 1.7 mmol/L Normal 0.4-2.0 [facility] Comment on above: Performed By: #### M DW, CMP, MG, ANEU, GFR, MORPH, ADIFF, CBC #### [facility] [address] [place], [place] [address] .Auto Diffon 04-05-2024 Basophil, Absolute 0.0 10 3/mcL Normal 0.0-0.3 [facility] ([place]) Comment on above: Performed By: #### P SA, CMP, ADIFF, ESR, GFR, CBC, ANEU #### [address] [address] Basophils/100 WBC (Bld) 0.7 % Normal 0.0-2.5 [facility] ([place]) Comment on above: Performed By: #### P SA, CMP, ADIFF, ESR, GFR, CBC, ANEU #### [address] [address] Eosinophil, Absolute 0.4 10 3/mcL Normal 0.0-0.7 [facility] ([place]) Comment on above: Performed By: #### P SA, CMP, ADIFF, ESR, GFR, CBC, ANEU #### [address] [address] Eosinophils/100 WBC (Bld) 7.7 % High 0.0-6.0 [facility] ([place]) Comment on above: Performed By: #### P SA, CMP, ADIFF, ESR, GFR, CBC, ANEU #### [address] [address] Lymphocyte, Absolute 1.4 10 3/mcL Normal 0.9-4.3 [facility] ([place]) Comment on above: Performed By: #### P SA, CMP, ADIFF, ESR, GFR, CBC, ANEU #### [address] [address] Lymphocytes/100 WBC (Bld) 26.7 % Normal 20.0-40.0 [facility] ([place]) Comment on above: Performed By: #### P SA, CMP, ADIFF, ESR, GFR, CBC, ANEU #### [address] [address] Monocyte, Absolute 0.6 10 3/mcL Normal 0.1-1.4 [facility] ([place]) Comment on above: Performed By: #### P SA, CMP, ADIFF, ESR, GFR, CBC, ANEU #### [address] [address] Monocytes/100 WBC (Bld) 11.6 % Normal 2.0-13.0 [facility] ([place]) Comment on above: Performed By: #### P SA, CMP, ADIFF, ESR, GFR, CBC, ANEU #### [address] [address] Neutrophils/100 WBC (Bld) 53.3 % Normal 50.0-75.0 [facility] ([place]) Comment on above: Performed By: #### P SA, CMP, ADIFF, ESR, GFR, CBC, ANEU #### [address] [address] .GFRon 04-05-2024 GFR Non- 49 ml/min/1.73sqm Normal [facility] ([place]) Comment on above: Result Comment: GFR Population [...] CMP, ADIFF, ESR, GFR, CBC, ANEU #### [address] [address] GFR 60 ml/min/1.73sqm Normal [facility] ([place]) Comment on above: Result Comment: GFR Population [...] CMP, ADIFF, ESR, GFR, CBC, ANEU #### [address] [address] .NEUABSon 04-05-2024 Neutrophil, Absolute 2.7 10 3/mcL Normal 2.3-8.1 [facility] ([place]) Comment on above: Performed By: #### P SA, CMP, ADIFF, ESR, GFR, CBC, ANEU #### [address] [address] CBCon 04-05-2024 Erythrocyte distribution width (RBC) [Ratio] 12.3 % Normal 11.5-15.5 [facility] ([place]) Comment on above: Performed By: #### P SA, CMP, ADIFF, ESR, GFR, CBC, ANEU #### [place] [address] Hematocrit (Bld) [Volume fraction] 36.1 % Low 40.0-52.0 [facility] ([place]) Comment on above: Performed By: #### P SA, CMP, ADIFF, ESR, GFR, CBC, ANEU #### [place] [address] Hgb 12.4 G/dL Low 13.0-17.5 [facility] ([place]) Comment on above: Performed By: #### P SA, CMP, ADIFF, ESR, GFR, CBC, ANEU #### [place] [address] MCH (RBC) [Entitic mass] 36.2 pg High 27.0-33.0 [facility] ([place]) Comment on above: Performed By: #### P SA, CMP, ADIFF, ESR, GFR, CBC, ANEU #### [place] [address] MCHC 34.4 G/dL Normal 32.0-36.0 [facility] ([place]) Comment on above: Performed By: #### P SA, CMP, ADIFF, ESR, GFR, CBC, ANEU #### [place] [address] MCV (RBC) [Entitic vol] 105.2 fL High 81.0-100.0 [facility] ([place]) Comment on above: Performed By: #### P SA, CMP, ADIFF, ESR, GFR, CBC, ANEU #### [place] [address] Platelet 240 10 3/mcL Normal 150-450 [facility] ([place]) Comment on above: Performed By: #### P SA, CMP, ADIFF, ESR, GFR, CBC, ANEU #### [place] [address] Platelet mean volume (Bld) [Entitic vol] 8.3 fL Normal 6.4-10.5 [facility] ([place]) Comment on above: Performed By: #### P SA, CMP, ADIFF, ESR, GFR, CBC, ANEU #### [place] [address] RBC 3.43 10 6/mcL Low 4.50-6.00 [facility] ([place]) Comment on above: Performed By: #### P SA, CMP, ADIFF, ESR, GFR, CBC, ANEU #### [place] [address] WBC 5.1 10 3/mcL Normal 4.5-10.8 [facility] ([place]) Comment on above: Performed By: #### P SA, CMP, ADIFF, ESR, GFR, CBC, ANEU #### [place] [address] CMPon 04-05-2024 Albumin Level 3.5 G/dL Normal 3.2-4.8 [facility] ([place]) Comment on above: Performed By: #### P SA, CMP, ADIFF, ESR, GFR, CBC, ANEU #### [place] [address] Albumin/Globulin [Mass ratio] 1.3 {ratio} Normal 0.9-1.6 [facility] ([place]) Comment on above: Performed By: #### P SA, CMP, ADIFF, ESR, GFR, CBC, ANEU #### [place] [address] ALP [Catalytic activity/Vol] 49 U/L Normal 38-126 [facility] [place] Comment on above: Performed By: #### P SA, CMP, ADIFF, ESR, GFR, CBC, ANEU #### [place] [address] ALT [Catalytic activity/Vol] 24 U/L Normal 12-55 [facility] [place] Comment on above: Performed By: #### P SA, CMP, ADIFF, ESR, GFR, CBC, ANEU #### [place] [address] AST [Catalytic activity/Vol] 30 U/L Normal 8-34 [facility] ([place] Comment on above: Performed By: #### P SA, CMP, ADIFF, ESR, GFR, CBC, ANEU #### [address] [address] Bili Total 0.40 mg/dL Normal 0.20-1.20 [facility] ([place] Comment on above: Result Comment: Use of this assay is not recommended for patients undergoing treatment with eltrombopag due to the potential for falsely elevated results. Performed By: #### P SA, CMP, ADIFF, ESR, GFR, CBC, ANEU #### [place] [id number] BUN/Creatinine Ratio 24.6 ratio High 10.0-22.0 [facility] ([place]) Comment on above: Performed By: #### P SA, CMP, ADIFF, ESR, GFR, CBC, ANEU #### [place] [id number] Calcium [Mass/Vol] 9.2 mg/dL Normal 8.7-10.4 [facility] ([place]) Comment on above: Performed By: #### P SA, CMP, ADIFF, ESR, GFR, CBC, ANEU #### [address] [address] Chloride [Moles/Vol] 108 mmol/L Normal 98-110 [facility] ([place]) Comment on above: Performed By: #### P SA, CMP, ADIFF, ESR, GFR, CBC, ANEU #### [address] [address] CO2 [Moles/Vol] 21 mmol/L Low 22-32 [facility] ([place] Comment on above: Performed By: #### P SA, CMP, ADIFF, ESR, GFR, CBC, ANEU #### [address] [address] Creatinine [Mass/Vol] 1.38 mg/dL Normal 0.60-1.40 [facility] ([place]) Comment on above: Performed By: #### P SA, CMP, ADIFF, ESR, GFR, CBC, ANEU #### [address] [address] Electrolyte Balance 7.0 mEq/L Normal 4.0-15.0 [facility] ([place]) Comment on above: Performed By: #### P SA, CMP, ADIFF, ESR, GFR, CBC, ANEU #### [address] [address] Globulin 2.7 G/dL Normal 1.5-3.8 [facility] ([place]) Comment on above: Performed By: #### P SA, CMP, ADIFF, ESR, GFR, CBC, ANEU #### [address] [address] Glucose [Mass/Vol] 87 mg/dL Normal 82-115 [facility] ([place]) Comment on above: Performed By: #### P SA, CMP, ADIFF, ESR, GFR, CBC, ANEU #### [address] [address] Potassium [Moles/Vol] 5.2 mmol/L High 3.5-5.0 [facility] ([place]) Comment on above: Performed By: #### P SA, CMP, ADIFF, ESR, GFR, CBC, ANEU #### [address] [address] Sodium [Moles/Vol] 136 mmol/L Normal 136-145 [facility] ([place]) Comment on above: Performed By: #### P SA, CMP, ADIFF, ESR, GFR, CBC, ANEU #### [place] [id number] Total Protein 6.2 G/dL Normal 5.7-8.2 [facility] ([place]) Comment on above: Result Comment: No te - New Reference Range in effect 20 Performed By: #### P SA, CMP, ADIFF, ESR, GFR, CBC, ANEU #### [address] [address] Urea nitrogen [Mass/Vol] 34.0 mg/dL High 8.0-22.0 [facility] ([place]) Comment on above: Performed By: #### P SA, CMP, ADIFF, ESR, GFR, CBC, ANEU #### [address] [address] ESRon 04-05-2024 Erythrocyte Sed Rate 7 mm/hr Normal 0-20 [facility] ([place]) Comment on above: Performed By: #### P SA, CMP, ADIFF, ESR, GFR, CBC, ANEU #### [address] [address] PSAon 04-05-2024 Prostate Specific Antigen <0.04 Normal 0.02-4.00 [facility] ([place]) Comment on above: Result Comment: Tami ent results determined by assays using different manufacturers for methods may not be comparable. Performed By: #### P SA, CMP, ADIFF, ESR, GFR, CBC, ANEU #### [address] [address] .Auto Diffon 12-15-2023 Basophil, Absolute 0.0 10 3/mcL Normal 0.0-0.3 [facility] ([place]) Comment on above: Performed By: #### A 1C, CMP, GFR, FE, ANEU, CBC, ADIFF ####[address] [address] Basophils/100 WBC (Bld) 0.8 % Normal 0.0-2.5 [facility] ([place]) Comment on above: Performed By: #### A 1C, CMP, GFR, FE, ANEU, CBC, ADIFF ####[address] [address] Eosinophil, Absolute 0.4 10 3/mcL Normal 0.0-0.7 [facility] ([place]) Comment on above: Performed By: #### A 1C, CMP, GFR, FE, ANEU, CBC, ADIFF ####[address] [address] Eosinophils/100 WBC (Bld) 8.6 % High 0.0-6.0 [facility] ([place]) Comment on above: Performed By: #### A 1C, CMP, GFR, FE, ANEU, CBC, ADIFF ####[place] [address] Lymphocyte, Absolute 1.5 10 3/mcL Normal 0.9-4.3 [facility] ([place]) Comment on above: Performed By: #### A 1C, CMP, GFR, FE, ANEU, CBC, ADIFF ####[address] [address] Lymphocytes/100 WBC (Bld) 29.6 % Normal 20.0-40.0 [facility] ([place]) Comment on above: Performed By: #### A 1C, CMP, GFR, FE, ANEU, CBC, ADIFF ####[address] [address] Monocyte, Absolute 0.5 10 3/mcL Normal 0.1-1.4 [facility] ([place]) Comment on above: Performed By: #### A 1C, CMP, GFR, FE, ANEU, CBC, ADIFF ####[address] [address] Monocytes/100 WBC (Bld) 9.8 % Normal 2.0-13.0 [facility] ([place]) Comment on above: Performed By: #### A 1C, CMP, GFR, FE, ANEU, CBC, ADIFF ####[address] [address] Neutrophils/100 WBC (Bld) 51.2 % Normal 50.0-75.0 [facility] ([place]) Comment on above: Performed By: #### A 1C, CMP, GFR, FE, ANEU, CBC, ADIFF ####[address] [address] .GFRon 12-15-2023 GFR Non- >60 Normal [facility] ([place]) Comment on above: Result Comment: GFR Population [...] 1C, CMP, GFR, FE, ANEU, CBC, ADIFF ####[address] [address] GFR >60 Normal [facility] ([place]) Comment on above: Result Comment: GFR Population [...] 1C, CMP, GFR, FE, ANEU, CBC, ADIFF ####[place] [address] .NEUABSon 12-15-2023 Neutrophil, Absolute 2.7 10 3/mcL Normal 2.3-8.1 [facility] ([place]) Comment on above: Performed By: #### A 1C, CMP, GFR, FE, ANEU, CBC, ADIFF ####[place] [address] A1Con 12-15-2023 HbA1c (Bld) [Mass fraction] 5.1 % Normal 4.0-6.0 [facility] ([place]) Comment on above: Performed By: #### A 1C, CMP, GFR, FE, ANEU, CBC, ADIFF ####[place] [address] CBCon 12-15-2023 Erythrocyte distribution width (RBC) [Ratio] 13.3 % Normal 11.5-15.5 [facility] ([place]) Comment on above: Performed By: #### A 1C, CMP, GFR, FE, ANEU, CBC, ADIFF #### [place] [address] Hematocrit (Bld) [Volume fraction] 34.8 % Low 40.0-52.0 [facility] ([place]) Comment on above: Performed By: #### A 1C, CMP, GFR, FE, ANEU, CBC, ADIFF #### [place] [id number] Hgb 11.7 G/dL Low 13.0-17.5 [facility] ([place]) Comment on above: Performed By: #### A 1C, CMP, GFR, FE, ANEU, CBC, ADIFF #### [place] [address] MCH (RBC) [Entitic mass] 34.7 pg High 27.0-33.0 [facility] ([place]) Comment on above: Performed By: #### A 1C, CMP, GFR, FE, ANEU, CBC, ADIFF #### [place] [address] MCHC 33.7 G/dL Normal 32.0-36.0 [facility] ([place]) Comment on above: Performed By: #### A 1C, CMP, GFR, FE, ANEU, CBC, ADIFF #### [place] [address] MCV (RBC) [Entitic vol] 102.9 fL High 81.0-100.0 [facility] ([place]) Comment on above: Performed By: #### A 1C, CMP, GFR, FE, ANEU, CBC, ADIFF #### [place] [address] Platelet 180 10 3/mcL Normal 150-450 [facility] ([place]) Comment on above: Performed By: #### A 1C, CMP, GFR, FE, ANEU, CBC, ADIFF #### [place] [address] Platelet mean volume (Bld) [Entitic vol] 8.4 fL Normal 6.4-10.5 [facility] ([place]) Comment on above: Performed By: #### A 1C, CMP, GFR, FE, ANEU, CBC, ADIFF #### [address] [address] RBC 3.39 10 6/mcL Low 4.50-6.00 [facility] ([place]) Comment on above: Performed By: #### A 1C, CMP, GFR, FE, ANEU, CBC, ADIFF #### [address] [address] WBC 5.2 10 3/mcL Normal 4.5-10.8 [facility] ([place]) Comment on above: Performed By: #### A 1C, CMP, GFR, FE, ANEU, CBC, ADIFF #### [address] [address] CMPon 12-15-2023 Albumin Level 3.5 G/dL Normal 3.2-4.8 [facility] ([place]) Comment on above: Performed By: #### A 1C, CMP, GFR, FE, ANEU, CBC, ADIFF ####[place] [address] Albumin/Globulin [Mass ratio] 1.3 {ratio} Normal 0.9-1.6 [facility] ([place]) Comment on above: Performed By: #### A 1C, CMP, GFR, FE, ANEU, CBC, ADIFF ####[place] [address] ALP [Catalytic activity/Vol] 33 U/L Low 38-126 [facility] ([place]) Comment on above: Performed By: #### A 1C, CMP, GFR, FE, ANEU, CBC, ADIFF ####[address] [address] ALT [Catalytic activity/Vol] 16 U/L Normal 12-55 [facility] ([place]) Comment on above: Performed By: #### A 1C, CMP, GFR, FE, ANEU, CBC, ADIFF ####[place] [id number] AST [Catalytic activity/Vol] 35 U/L High 8-34 [facility] ([place]) Comment on above: Performed By: #### A 1C, CMP, GFR, FE, ANEU, CBC, ADIFF ####[address] [address] Bili Total 0.70 mg/dL Normal 0.20-1.20 [facility] ([place]) Comment on above: Result Comment: Use of this assay is not recommended for patients undergoing treatment with eltrombopag due to the potential for falsely elevated results. Performed By: #### A 1C, CMP, GFR, FE, ANEU, CBC, ADIFF ####[place] [id number] BUN/Creatinine Ratio 17.2 ratio Normal 10.0-22.0 [facility] ([place]) Comment on above: Performed By: #### A 1C, CMP, GFR, FE, ANEU, CBC, ADIFF ####[place] [id number] Calcium [Mass/Vol] 8.9 mg/dL Normal 8.7-10.4 [facility] ([place]) Comment on above: Performed By: #### A 1C, CMP, GFR, FE, ANEU, CBC, ADIFF ####[place] [id number] Chloride [Moles/Vol] 110 mmol/L Normal 98-110 [facility] ([place]) Comment on above: Performed By: #### A 1C, CMP, GFR, FE, ANEU, CBC, ADIFF ####[place] [id number] CO2 [Moles/Vol] 23 mmol/L Normal 22-32 [facility] ([place]) Comment on above: Performed By: #### A 1C, CMP, GFR, FE, ANEU, CBC, ADIFF ####[address] [address] Creatinine [Mass/Vol] 0.87 mg/dL Normal 0.60-1.40 [facility] ([place]) Comment on above: Performed By: #### A 1C, CMP, GFR, FE, ANEU, CBC, ADIFF ####[address] [address] Electrolyte Balance 9.0 mEq/L Normal 4.0-15.0 [facility] ([place]) Comment on above: Performed By: #### A 1C, CMP, GFR, FE, ANEU, CBC, ADIFF ####[address] [address] Globulin 2.7 G/dL Normal 1.5-3.8 [facility] ([place]) Comment on above: Performed By: #### A 1C, CMP, GFR, FE, ANEU, CBC, ADIFF ####[address] [address] Glucose [Mass/Vol] 76 mg/dL Low 82-115 [facility] ([place]) Comment on above: Performed By: #### A 1C, CMP, GFR, FE, ANEU, CBC, ADIFF ####[address] [address] Potassium [Moles/Vol] 4.2 mmol/L Normal 3.5-5.0 [facility] ([place]) Comment on above: Performed By: #### A 1C, CMP, GFR, FE, ANEU, CBC, ADIFF ####[place] [id number] Sodium [Moles/Vol] 142 mmol/L Normal 136-145 [facility] ([place]) Comment on above: Performed By: #### A 1C, CMP, GFR, FE, ANEU, CBC, ADIFF ####[place] [address] Total Protein 6.2 G/dL Normal 5.7-8.2 [facility] ([place]) Comment on above: Result Comment: No te - New Reference Range in effect 20 Performed By: #### A 1C, CMP, GFR, FE, ANEU, CBC, ADIFF ####[address] [address] Urea nitrogen [Mass/Vol] 15.0 mg/dL Normal 8.0-22.0 [facility] ([place]) Comment on above: Performed By: #### A 1C, CMP, GFR, FE, ANEU, CBC, ADIFF ####[address] [address] FEon 12-15-2023 Iron [Mass/Vol] 106 ug/dL Normal 65-175 [facility] ([place]) Comment on above: Performed By: #### A 1C, CMP, GFR, FE, ANEU, CBC, ADIFF ####[place] [id number] [address] [place], [place] [id number] HAND COMP MIN 3 VWS LTon HAND [...] described. This report was electronically signed by Khailda aFjardo MD 10/23/2021 1:49 PM Reported By: KHALIDA FAJARDO M.D. Signed By: KHALIDA FAJARDO M.D. [facility] 10-23-2021 [facility] REPORT [facility] DATE OF SERVICE: 10/23/2021 REASON OF VISIT: [...] rhythm. Exam of the left hand reveals [facility] PATIENT NAME: PAYTON KNIGHT [address] [place] MEDICAL REC #: [id number] [place] [address] [facility] REPORT [facility] PHYSICIAN significant swelling and flexion [...] the fracture of the index finger. His [facility] PATIENT NAME: PAYTON KNIGHT [address] [place] MEDICAL REC #: [id number] [place] [address] [facility] REPORT [facility] PHYSICIAN stated she will call [facility] as soon as possible and get further treated. Patient and his understood and agreed. Their questions were answered to their satisfaction. Tetanus vaccination was up to date. Brooke Patel MD PP/[id number] [facility] File#: [id number] END OF DOCUMENT / CHANGE LOG FOLLOWS Last Edited By Elec. Signed By Brooke Patel MD #PAWPR Brooke Patel MD #PAWPR on 10/30/2021 12:30 ET on 10/30/2021 12:30 ET Revision Number - 2 Verified/Reviewed by 10/30/21 1230 PATRICK [facility] PATIENT NAME: PAYTON KNIGHT [address] MEDICAL REC #: [id number] [place] [address] [facility] REPORT [facility] PHYSICIAN Normal [facility] Encounters Encounter Date Encounter Type Care Provider Facility Start: 04-17-2025 End: 04-17-[address] Jamie Stephens DO Work Phone: [facility] Start: 04-17-2025 End: 04-17-[address] Lucita Tom MD [facility] Work Phone: Start: 04-17-2025 End: 04-17-2025 ambulatory Lucita Tom Facility:[facility] Start: 12-25-2024 End: 12-25-2024 ambulatory VIC MCKENZIE TEAM ASSEMBLER-CHILDHOOD TEACHER Facility:A Start: 09-21-2024 End: 09-25-2024 ambulatory MARIE [...] Start: 06-22-2023 End: 06-26-2023 ambulatory CHELORIANNA ELIZALDE TEAM ASSEMBLER-CHILDHOOD TEACHER Facility:A Start: 06-22-2023 End: 06-22-2023 ambulatory CHELORIANNA THORPEROY TEAM ASSEMBLER-CHILDHOOD TEACHER Facility:A Start: 06-11-2023 End: 06-15-2023 ambulatory VICKY COLEMAN PA-C Facility:A Start: 06-11-2023 End: 06-11-2023 ambulatory VICKY WEEKS PA-C Facility:A Start: 10-23-2021 Patient encounter procedure Brooke Patel MD Work Phone: [facility] Start: 10-23-2021 Progress Note Brooke Patel MD Work Phone: [facility] Start: 10-23-2021 End: 10-23-2021 Subsequent hospital visit by physician Brooke Patel Work Phone: [facility] Comment on above: LAC ON LEFT HAND Procedures Date Procedure Procedure Detail Performing Clinician Start: 04-17-[address] Errol Stephens DO Work Phone: Comment on above: Performed at: [address] Director: Heath Bell PhD, Phone: [phone] Start: 04-17-2025 [address]atitis C antibody measurement Dr. [...] HCV Quant by PCR testing - HCVPCR #[id number] Non Reactive: < 0.8 Equivocal: >/= 0.8 to < 1.0 Reactive: >/= 1.0The CDC requires that a reactive/equivocal HCV antibody result be sent out for confirmation. HCV Quant by PCR testing. Plan of Treatment Date Care Activity Detail Author Start: 04-17-2025 In-vitro immunologic test [facility] Cyclic citrullinated peptide IgG Ab [Units/volume] in Serum or Plasma [facility] Mycobacterium tuberc ulosis tuberculin stimulated gamma interferon [Presence[facility] Payers Date Payer Category Payer Self-pay 2018 Private Health Insurance [id number] 2018 Medicare [id number] 1940 Unknown [id number] 2.16.8 [id number] 1940 Unknown [id number] 2.16.8 40.1.118644.3.579.2.627 1942 Unknown [id number] 2.16.8 40.1.706679.3.579.2.627 1942 Unknown [id number] 2.16.8 40.1.326371.3.579.2.627 1942 Unknown [id number] 2.16.8 40.1.280156.3.579.2.627 1942 Unknown [id number] 2.16.8 40.1.405973.3.579.2.627 1942 Unknown [id number] 2.16.8 40.1.683976.3.579.2.627 1942 Unknown [id number] 2.16.8 40.1.106814.3.579.2.627 1942 Unknown [id number] 2.16.8 40.1.497546.3.579.2.627 1942 Unknown [id number] 2.16.8 40.1.460812.3.579.2.627 1942 Unknown [id number] 2.16.8 40.1.645127.3.579.2.627 1942 Unknown [id number] 2.16.8 40.1.857743.3.579.2.627 1942 Unknown [id number] 2.16.8 40.1.490307.3.579.2.627 1942 Unknown [id number] 2.16.8 40.1.670457.3.579.2.627 1942 Unknown [id number] 2.16.8 40.1.304091.3.579.2.627 Unknown [id number] 2.16.8 40.1.028205.3.579.2.462 Social History Date Type Detail Facility Tobacco smoking status RIIS Tobacco smoking consumption unknown [facility] Start: 1940 Sex Assigned At Not on file C [facility] Start: 1940 Sex Assigned At Male [facility] Clinical Note 09-23-2024 Note Date & Type [...] Locations *1: This test was performed at: [address], [address] [place] [address] Clinical Note 06-24-2023 Note Date & Type [...] Locations *1: This test was performed at: [address], [address] [place] [address] ([place]) Clinical Note 06-13-2023 Note Date & Type [...] Locations *1: This test was performed at: [facility], [address] [place] [address], [facility] , [facility] ([place]) History of Present illness Narrative 10-23-2021 Brooke [...] was up to date. Brooke Patel MD PP/[id number] [facility] File#: [id number] END OF DOCUMENT / CHANGE LOG FOLLOWS Last Edited By Elec. Signed By Brooke Patel MD #PAWPR Brooke Patel MD #PAWPR on 10/30/2021 12:30 ET on 10/30/2021 12:30 ET Revision Number - 2 ^^^ Verified/Reviewed by 10/30/21 1230 PATRICK [facility] PATIENT NAME: PAYTON KNIGHT [address] [facility] [place] MEDICAL REC #: [id number] [place] [address] [facility] REPORT [facility] PHYSICIAN documented in this encounter [facility] Evaluation note Note Date & Type Note Facility Evaluation note No assessment information availa ble [facility] Work Phone: Reason for referral (narrative) Note Date & Type Note Facility Reason for referral (narrative) No reason for referral information available [facility] Work Phone: Summary Purpose Family History [...] or prosecute any alcohol or drug abuse patient.[facility] the event this information is protected by the Federal Confidentiality of Alcohol and Drug Abuse Patient Records regulations: The Federal rules restrict any use of the information to criminally investigate or prosecute any alcohol or drug abuse patient.[facility] (unrecognized sect ion and content) No Status Records FoundNo Status Records FoundNo Status Records FoundNo Status Records FoundNo Status Records Found INFORMATION SOURCE (unrecogn ized section and content) DATE CREATED AUTHOR 12/05/2021 [facility] [place] DATE CREATED AUTHOR AUTHOR'S ORGANIZ ATION 04/06/2024 [facility] ([place]) DATE CREATED AUTHOR AUTHOR'S ORGANIZ ATION 10/04/2024 [facility] DATE CREATED AUTHOR AUTHOR'S ORGANIZ ATION 12/26/2024 [facility] DATE CREATED AUTHOR AUTHOR'S ORGANIZ ATION 04/30/2025 [facility] Care Teams (unrecognized sec tion and content) [...] BE BASED ON THE PRIMARY CLINICAL RECORDS. [employer] [facility]. provides no warranty or guarantee of the accuracy or completeness of information in this document.
== END | disposition home or self-care (01) ==
LOC: MTRAD 10:21
PROVIDERS: PCP Family Medicine; Referring Provider Internal Medicine Rheumatology; Visit Provider Internal Medicine Rheumatology
DX: L40.59 Other psoriatic arthropathy (principal)
CPT/HCPCS: 72170